=== PATIENT | female | born 1960 | race Caucasian/White ===

== ENCOUNTER 2021-05-11 07:58 | Outpatient (REF) | payer OTHER, SELFPAY ==
--- NOTE | ~2021-05-11 | MM_ITS ---
EXAMINATION: MM SCREENING DIGITAL BREAST TOMOSYNTHESIS, BILATERAL CLINICAL INFORMATION: Screening. Asymptomatic. The lifetime risk of breast cancer based on the Tyrer-Cuzick Model is 8.7%. COMPARISON: Mammography: 05/05/2020 and studies dating back to 06/21/2014 TECHNIQUE: Digital breast tomosynthesis is performed in both the craniocaudal and mediolateral oblique views along with computer-aided detection (CAD). Synthesized 2D images are generated from the tomosynthesis. Additional bilateral exaggerated craniocaudal views performed. FINDINGS: There are scattered areas of fibroglandular density (ACR BI-RADS breast composition Category b). There is a stable parenchymal appearance of the right breast without new abnormal dominant mass or suspicious grouping of microcalcifications. Within the anterior medial aspect of the left breast there is a circumscribed approximately 5 x 3 mm density for which ultrasound evaluation is recommended. Radiology staff will contact patient to obtain this study. MM/MM tomosynthesis screening BI IMPRESSION: Left breast density for further evaluation with ultrasound. ASSESSMENT: BI-RADS 0: Incomplete - Need Additional Imaging Evaluation RECOMMENDATION: 1. Additional views of the left breast. 2. Targeted ultrasound if warranted after review of the additional views. 3. Radiology department staff will contact the patient for additional imaging. This patient's information was entered into a reminder system with a target due date for their next mammogram.
== END 2021-05-11 07:59 | disposition home or self-care (01) ==
LOC: HO.MAMMO 07:58
PROVIDERS: PCP Internal Medicine Medical Oncology; Visit Provider Internal Medicine Medical Oncology
DX: Z12.31 Encounter for screening mammogram for malignant neoplasm of breast (principal)
CPT/HCPCS: 77063; 77067

== ENCOUNTER 2021-05-19 08:44 | Outpatient (REF) | payer OTHER, SELFPAY ==
--- NOTE | ~2021-05-19 | US_ITS ---
EXAMINATION: US DIAGNOSTIC ULTRASOUND BREAST, LEFT CLINICAL INFORMATION: Recall from screening for new small nodule anterior 9:00 left breast. TC score 9%. COMPARISON: Mammography 05/11/2021 and prior studies dating back to 07/03/2015. TECHNIQUE: Ultrasound left breast is targeted to the inner quadrant. Grayscale imaging and color Doppler are performed without and with harmonics. FINDINGS: There is a hypoechoic nodule 9:00 position 4 cm from nipple measuring approximately 5 x 4 x 4 mm. Margins are smooth. There is no posterior increased or decreased through transmission of sound. No internal color flow. The location and size. Results are discussed with the patient at time of visit. The ultrasound finding appears to correspond to the size and location of the mammographic lesion for recall. The mammographic finding is new from prior studies. Ultrasound-guided core sampling is recommended. Results and recommendation called to office ([facility]) for Dr. Hays on 05/19/2021. US/US breast LT limited IMPRESSION: Hypoechoic nodule 9:00 position measuring 5 x 4 mm believed to correspond to the mammographic finding for recall. ASSESSMENT: BI-RADS 4: Suspicious (subcategory 4A: Low suspicion for malignancy) RECOMMENDATION: Ultrasound-guided core sampling. This patient's information was entered into a reminder system with a target due date for their next mammogram.
== END 2021-05-19 08:45 | disposition home or self-care (01) ==
LOC: HO.MAMMO 08:44
PROVIDERS: Visit Provider Internal Medicine Medical Oncology
DX: R92.2 Inconclusive mammogram (principal)
CPT/HCPCS: 76642

== ENCOUNTER 2021-05-24 09:26 | Outpatient (REF) | payer OTHER, SELFPAY ==
--- NOTE | ~2021-05-24 | MM_ITS ---
EXAMINATION: ULTRASOUND GUIDED CORE BIOPSY BREAST, LEFT POST PROCEDURE DIGITAL MAMMOGRAM, LEFT CLINICAL INFORMATION: There is small nodule anterior medial left breast 9:00 position. COMPARISON: Mammography 05/11/2021, 05/05/2020, 03/26/2019, targeted left breast ultrasound 05/19/2021. FINDINGS: Proper informed consent is obtained from the patient after discussion of the procedure, potential risks and complications, and alternatives. Patient was given an opportunity for questions. The patient appeared to understand. The patient consented to the procedure and signed the consent form. GUIDANCE: Ultrasound-guided; aseptic technique. LESION: Hypoechoic nodule 9:00 position 0.5 cm. APPROACH: Medial lateral. ANESTHESIA: 10 mL 1% lidocaine. DERMATOTOMY: Single skin joan dermatotomy performed. NEEDLE: 14-gauge Achieve core biopsy device with 13.5-gauge co-axial guide needle. CORES: 6. CLIP: HydroMARK; shape: open coil. POST PROCEDURE UNILATERAL DIGITAL MAMMOGRAM: The post biopsy mammogram is performed in separate room using separate digital mammography equipment from the biopsy procedure. CC and ML views are obtained. There are scattered areas of fibroglandular density (breast composition category: b). The clip marker is in position and corresponds to the finding on recent mammography. No gross hematoma. The patient tolerated the procedure well. No immediate complications. Home instructions reviewed with the patient. Final pathology results are pending. MM/MM tomosynthesis diagnostic LT IMPRESSION: 1. Status post ultrasound-guided core biopsy left breast. 2. Clip placed: HydroMARK; shape: open coil. 3. Pathology pending. An addendum report will be issued.
== END 2021-05-24 09:27 | disposition home or self-care (01) ==
LOC: HO.MAMMO 09:26
PROVIDERS: Visit Provider Surgery
DX: N63.25 Unspecified lump in the left breast, overlapping quadrants (principal)
CPT/HCPCS: 19083; 77061; 77065; 88305; 88342; 88360

== ENCOUNTER → 2021-06-05 08:33 | Outpatient (BNVA) | payer OTHER, SELFPAY | PROVIDERS: PCP Internal Medicine Medical Oncology; Visit Provider Surgery ==

== ENCOUNTER 2021-06-23 09:03 | Day surgery (SDC) | payer OTHER, SELFPAY ==
[2021-06-19 10:46] VITALS: BMI 34.4
[2021-06-19 10:55] VITALS: BMI 34.4
--- NOTE | 2021-06-22 08:34 | HO.ANESPROP2 ---
Documented by User: Arlen Horn NP 06/22/21 08:36 HPI - Anesthesia Eval Consult details Narrative: 61yo F for Left Breast Biopsy Needle Localization, Breast Lumpectomy [facility] Active Problems Active Problems: All Active Problems (Updated 06/19/21 @ 10:56 by Mallory Rain RN) 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 (Acute) Left breast mass (Acute) Past Medical History Medical History (Updated 06/23/21 @ 11:31 by Laurie Gonzalez MD) 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 COVID-19 vaccine series completed Fractured shoulder HTN (hypertension) Left breast mass Rhabdomyolysis Surgical History Surgical History (Updated 06/19/21 @ 10:44 by Mallory Rain RN) History of ankle surgery Hx of biopsy Social History Social History Patient Tobacco Use Status: Never used Tobacco Use of substances other than those prescribed or required for medical reasons: No Are you DNR?: No Advance Directives: No Advance Directives Information Provided: Yes (as above noted) Advance Directives on File: No Recently lost weight without trying: No Eating poorly because of decreased appetite: No Nutrition Risks: No Nutritional Risk Poor oral hygiene: No Meds Allergies Allergy/AdvReac Type Severity Reaction Status Date / Time lisinopril [LISINOPRIL] Allergy Intermediate COUGH Verified 06/19/21 10:42 ibuprofen [IBUPROFEN] AdvReac Intermediate Confusion Verified 06/19/21 10:42 Home Medications Medication Instructions Recorded Confirmed Last Taken Type atenolol 25 mg tablet 25 mg PO DAILY 05/24/21 06/23/21 06/22/21 History Exam Exam Date and Time: June 22, 2021 0834 Height,Weight and Vital Signs: Height 5 ft 9 in Weight 105.687 kg Assessment and Plan Assessment Anesthesia Assessment: Chart Reviewed Documented by User: Laurie Gonzalez MD 06/23/21 12:27 [facility] Past Medical History Medical History (Updated 06/23/21 @ 11:31 by Laurie Gonzalez MD) 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 COVID-19 vaccine series completed Fractured shoulder HTN (hypertension) Left breast mass Rhabdomyolysis Family History Family history of problems with anesthesia: No Surgical History Surgical History (Updated 06/19/21 @ 10:44 by Mallory Rain RN) History of ankle surgery Hx of biopsy History of Problems with Anesthesia: No Social History Social History Patient Tobacco Use Status: Never used Tobacco Use of substances other than those prescribed or required for medical reasons: No Are you DNR?: No Advance Directives: No Advance Directives Information Provided: Yes (as above noted) Advance Directives on File: No Recently lost weight without trying: No Eating poorly because of decreased appetite: No Nutrition Risks: No Nutritional Risk Poor oral hygiene: No Meds Allergies Allergy/AdvReac Type Severity Reaction Status Date / Time lisinopril [LISINOPRIL] Allergy Intermediate COUGH Verified 06/19/21 10:42 ibuprofen [IBUPROFEN] AdvReac Intermediate Confusion Verified 06/19/21 10:42 Home Medications Medication Instructions Recorded Confirmed Last Taken Type atenolol 25 mg tablet 25 mg PO DAILY 05/24/21 06/23/21 06/22/21 History Exam Height,Weight and Vital Signs: Height 5 ft 9 in Weight 105.687 kg Vital Signs Temp Pulse Resp BP Pulse Ox 06/23/21 09:10 97 F 54 18 154/78 H 98 Airway Mallampati Class: II TM Dist: >3cm Neck ROM: Full Loose/Missing/Broken Teeth: No Heart: RRR Lungs: CTAB Assessment and Plan Assessment Anesthesia Assessment: Anesthesia Plan Discussed Final Anesthetic Review Family History of Problems with Anesthesia: No History of Problems with Anesthesia: No NPO: Yes ASA Class: II Final Preanesthetic Review: No Changes in Pt Med Stat, Meds/Allgs Chart Reviewed, Consent Obtained/Reviewed and Anes Risks/Benef Reviewed Patient Risk: Low Procedure Risk: Low Assessment/Block/Sedation in SS: Assess/Block/Sedation-SS Anesthetic Plan Anesthetic Plan: GA Disposition: Standard PACU
[2021-06-23] VITALS (8 sets, daily range): BP systolic 130–154; BP diastolic 68–79; PULSE 44–54; RESP 16–18; TEMP 36.1–36.5; O2SAT 96–98
--- NOTE | ~2021-06-23 | MM_ITS ---
EXAMINATION: MM MAMMOGRAM GUIDED NEEDLE LOCALIZATION BREAST, LEFT MM NEEDLE LOCALIZATION SPECIMEN FROM THE LEFT BREAST CLINICAL INFORMATION: Intraductal papilloma with florid usual ductal hyperplasia and atypical ductal hyperplasia. COMPARISON: Mammography 05/11/2021, 11/21/2020 TECHNIQUE NEEDLE LOC: Proper informed consent is obtained from the patient after discussion of the procedure, potential risks and complications, and alternatives including declining the procedure today. Patient was given an opportunity for questions. The patient appeared to understand. The patient consented to the procedure and signed the consent form. GUIDANCE: Digital mammography. APPROACH: Mediolateral. TARGET: Open coil biopsy clip marker overlying faint nodule. ANESTHESIA: Carbonated lidocaine 1%: 5 mL. LOCALIZATION MARKER: Zahl MammaLok. 5 cm length. The skin is prepped and local anesthesia administered. The needle is positioned and position assessed with mammography. The wire is hooked into position. Loleta needle protector placed. The patient tolerated the procedure well and had no immediate complication. Procedure results discussed with Dr. Gomez prior to surgery. TECHNIQUE SPECIMEN RADIOGRAPH: Imaging of the excised specimen is performed using digital mammography in 1 view. FINDINGS SPECIMEN RADIOGRAPH: The specimen shows the needle and hookwire are delivered intact. The biopsy clip marker and faint nodule are at the periphery of the specimen. Results were called to Dr. Bennie Gomez in the operating room at the time of imaging. MM/MM needle loc LT IMPRESSION: 1. Status post left breast needle localization with wire hooked into position. 2. Post operative specimen radiograph obtained.
[2021-06-23] MEDS: Lactated Ringers 1,000 ML 100 ML IVCONT (09:23)
--- NOTE | 2021-06-23 10:20 | PC.NURSE ---
pt to rad for needle loc at 1000
--- NOTE | 2021-06-23 10:39 | MHC.SHP ---
Pre-Procedural Eval Section A Date of Service: 06/23/21 Section B Chief Complaint: 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 Allergies: Allergies Allergy/AdvReac Type Severity Reaction Status Date / Time lisinopril [LISINOPRIL] Allergy Intermediate COUGH Verified 06/19/21 10:42 ibuprofen [IBUPROFEN] AdvReac Intermediate Confusion Verified 06/19/21 10:42 Plan I have reviewed the history and physical and performed a pertinent physical examination on my patient. No changes have occurred unless specified.
--- NOTE | 2021-06-23 12:04 | W.PM.OPN ---
Operative Note Operative Note Date of Service: 06/23/21 Narrative: Preop diagnosis: Intraductal papilloma, atypical lobular hyperplasia, left breast Postop diagnosis: The same Procedure: Lumpectomy, left breast with needle localization Surgeon: Bennie Gomez MD 1st sales assistant entertainment and media: TIN Kim The patient is a 61 year female who had recently undergone ultrasound biopsy of the left breast which turned out to be intraductal papilloma with atypical lobular hyperplasia. It was therefore recommended to her to undergo lumpectomy with needle localization She understood the technique of the procedure. She was aware of the risks, benefits, and alternatives. She was brought to the operating room and placed supine on table under general anesthesia via laryngeal mask airway. She had earlier undergone needle localization in the mammogram suite. The localizing needle was seen entering from medially towards the lateral aspect of the inner side of the left breast. I discussed the needle localization films with the radiologist. The left breast along with the localized needle was prepped and draped in the usual sterile fashion. A surgical time-out was done. The patient received cefazolin 2 g IV preoperatively I infiltrated the planned line of incision using lidocaine 1%. I made a transverse incision tangential to the localizing needle using blade 15. This was carried down through the full-thickness of the skin and subcutaneous fat with electrocautery. I carried down the incision into the breast tissue. I then used a curved Ruiz to dissect around this localizing needle through the surrounding breast tissue, being mindful to take significant margins of breast tissue surroundings needle. I also palpated periodically to make sure that we were past the curve of the needle. We continued to dissect using the curved Ruzi all the way past the needle and circumferentially around the breast tissue surrounding the localizing needle until were able to deliver this. I marked the lateral aspect and the superior aspect of the lumpectomy specimen for orientation using sutures. was sent for immediate re-ray. I cauterized oozing areas within the lumpectomy site. Once hemostasis stasis was ensured, I proceeded to then irrigate. I reapposed the subcutaneous layer and breast tissue with Dexon 3-0 interrupted sutures. Skin closure was achieved with Dexon 4-0 subcuticular running stitch Steri-Strips and dressings were applied. The procedure was completed The patient tolerated procedure well. No complication noted. Initial fine counts of sponges and instruments were correct with him it blood loss about 20 cc The patient was then extubated without difficulty and transferred to the recovery room with stable vital signs I received a call from the radiologist at the end the procedure stating the localizing clip and needle were all within the specimen.
--- NOTE | 2021-06-23 12:14 | PM.OP ---
Brief Operative Note Date of Service: 06/23/21 Pre-op diagnosis: Intraductal papilloma, atypical lobular hyperplasia Left breast Post-op diagnosis: same Procedure: Lumpectomy with needle localization, left breast Surgeon: Bennie Gomez MD Anesthesia: GLMA Was an Agricultural Extension Officer used for this Procedure?: No Estimated blood loss (mL): 20 Pathology: other (Lumpectomy left breast) Condition: stable Disposition: PACU
[2021-06-23] MEDS: Acetaminophen 325 MG TABLET 650 MG PO (13:13)
== END 2021-06-23 13:54 | disposition home or self-care (01) ==
PROVIDERS: PCP Internal Medicine Medical Oncology; Visit Provider Surgery
PROC: (CPT 19301; principal; 2021-06-23 11:30)
PROC: (CPT 19301; 2021-06-23 11:30)
DX: N60.92 Unspecified benign mammary dysplasia of left breast (principal); D24.2 Benign neoplasm of left breast
CPT/HCPCS: 19301; 19281; 88307; 88329; J0690; J1100; J2250; J2405; J3010

== ENCOUNTER → 2021-07-05 10:11 | Outpatient (BNVA) | payer OTHER, SELFPAY | PROVIDERS: PCP Internal Medicine Medical Oncology; Visit Provider Surgery ==

== ENCOUNTER 2021-07-06 13:18 | Outpatient (REF) | payer OTHER, SELFPAY | END 2021-07-06 13:19 | disposition home or self-care (01) | LOC: HO.LNP 13:18 | PROVIDERS: Visit Provider Internal Medicine Medical Oncology | DX: Z12.4 Encounter for screening for malignant neoplasm of cervix (principal) | CPT/HCPCS: 88142 ==

== ENCOUNTER 2022-05-15 07:58 | Outpatient (REF) | payer OTHER, SELFPAY ==
--- NOTE | ~2022-05-15 | MM_ITS ---
EXAMINATION: MM SCREENING DIGITAL BREAST TOMOSYNTHESIS, BILATERAL CLINICAL INFORMATION: Screening. Asymptomatic. Status post benign right breast biopsy. Status post excisional left breast biopsy for papilloma. The lifetime risk of breast cancer based on the Tyrer-Cuzick Model is 8.5%. COMPARISON: Mammography: 06/23/2021 and studies dating back to 01/26/2016. TECHNIQUE: Digital breast tomosynthesis is performed in both the craniocaudal and mediolateral oblique views along with computer-aided detection (CAD). Synthesized 2D images are generated from the tomosynthesis. Additional right exaggerated craniocaudal view performed. FINDINGS: There are scattered areas of fibroglandular density (ACR BI-RADS breast composition Category b). There are no new significant masses, abnormal calcifications, or other abnormalities. Dystrophic calcifications seen about the superior aspect of the right breast. Region of postoperative distortion seen within the anterior left breast. MM/MM tomosynthesis screening BI IMPRESSION: No significant changes from prior exam. ASSESSMENT: BI-RADS 2: Benign. RECOMMENDATION: Routine annual mammography screening. This patient's information was entered into a reminder system with a target due date for their next mammogram.
== END 2022-05-15 07:59 | disposition home or self-care (01) ==
LOC: HO.MAMMO 07:58
PROVIDERS: PCP Internal Medicine Medical Oncology; Visit Provider Internal Medicine Medical Oncology
DX: Z12.31 Encounter for screening mammogram for malignant neoplasm of breast (principal)
CPT/HCPCS: 77063; 77067

== ENCOUNTER 2022-07-23 08:32 | Outpatient (REF) | payer OTHER, SELFPAY ==
[2022-07-23 08:43] LABS: MANUAL DIFF FLAG NO
[2022-07-23 09:09] LABS: Basophils Percent Auto 0.5 % (0-2); Eosinophils Absolute Auto 0.1 X10*3/uL (0.0-0.4); Eosinophils Percent Auto 1.5 % (0-4); Hemoglobin 14.2 g/dl (12.0-16.0); Imm Gran Abs Auto 0.01 X10*3/uL (0.00-0.03); Imm Gran Pct Auto 0.2 % (0.0-0.4); Lymphocytes Absolute Auto 2.4 X10*3/uL (1.2-4.9); Lymphocytes Percent Auto 40.4 % (20-40); Mean Corpuscular Hemoglobin 29.1 pg (27.0-33.0); Mean Corpuscular Volume 88.1 fL (80.0-98.0); Mean Platelet Volume 9.7 fL (9.4-12.3); Monocytes Absolute Auto 0.4 X10*3/uL (0.1-1.2); Monocytes Percent Auto 6.2 % (2-11); Neutrophils Absolute Auto 3.1 x10*3/uL (2.0-8.3); Neutrophils Percent Auto 51.2 % (45-73); Platelet Count 170 X10*3/uL (160-400); Red Blood Count 4.88 X10*6/uL (4.20-5.50); Red Cell Distribution Width 12.5 % (11.0-16.0)
[2022-07-23 09:23] LABS: Alanine Aminotransferase 43 U/L (0-31); Albumin Level 4.6 g/dL (3.5-5.0); Alkaline Phosphatase 85 U/L (39-117); Anion Gap 19 (12-20); Aspartate Amino Transferase 49 U/L (5-31); Bilirubin Total 0.9 mg/dL (0.0-1.0); Blood Urea Nitrogen 11 mg/dL (9-16); Calcium 9.3 mg/dL (8.4-10.2); Carbon Dioxide 25 mmol/L (22-29); Chloride 99 mmol/L (96-108); Cholesterol 269 mg/dL; Estimated Glomerular Filt Rate > 60; Glucose Random 264 mg/dL (60-115); HDL Cholesterol 34 mg/dL; Potassium 4.7 mmol/L (3.3-5.1); Sodium 138 mmol/L (135-145); Total Protein 7.5 g/dL (6.5-8.0); Triglycerides 476 mg/dL
== END 2022-07-23 08:33 | disposition home or self-care (01) ==
LOC: HO.LAB 08:32
PROVIDERS: PCP Internal Medicine Medical Oncology; Visit Provider Internal Medicine Medical Oncology
DX: E66.9 Obesity, unspecified (principal); E78.2 Mixed hyperlipidemia
CPT/HCPCS: 36415; 80053; 80061; 85025

== ENCOUNTER 2022-07-25 10:30 | Outpatient (REF) | payer OTHER, SELFPAY ==
[2022-07-25 11:46] LABS: Estimated Average Glucose 269 mg/dL
[2022-07-25 12:05] LABS: TSH reflex Free T4 1.43 uIU/mL (0.32-4.0)
[2022-07-25 12:06] LABS: C Reactive Protein 0.67 mg/dL (< or = 0.50)
[2022-07-25 12:46] LABS: Folate 17.4 ng/mL (> or = 4.0); Vitamin B12 274 pg/mL (200-900)
[2022-07-31 16:02] LABS: Vitamin D 25-OH, D2 <4 ng/mL; Vitamin D 25-OH, D3 35 ng/mL; Vitamin D 25-OH, Total 35 ng/mL (30-100)
== END 2022-07-25 10:31 | disposition home or self-care (01) ==
LOC: HO.LAB 10:30
PROVIDERS: PCP Internal Medicine Medical Oncology; Visit Provider Nurse Practitioner Family
DX: R19.7 Diarrhea, unspecified (principal); K59.00 Constipation, unspecified; E11.9 Type 2 diabetes mellitus without complications; K58.9 Irritable bowel syndrome, unspecified; E55.9 Vitamin D deficiency, unspecified
CPT/HCPCS: 36415; 82306; 82607; 82746; 83036; 84443; 86140

== ENCOUNTER 2022-07-26 08:49 | Outpatient (REF) | payer OTHER, SELFPAY ==
[2022-07-26 09:58] LABS: CDiff Gene PCR NEGATIVE (Negative)
[2022-07-26 11:38] LABS: Adenovirus F 40/41 Not Detected (Not Detect.); Campylobacter Not Detected (Not Detect.); Cryptosporidium Not Detected (Not Detect.); Cyclospora cayetanensis Not Detected (Not Detect.); E. coli EAEC Not Detected (Not Detect.); E. coli EPEC Not Detected (Not Detect.); E. coli ETEC Not Detected (Not Detect.); E. coli STEC Not Detected (Not Detect.); Entamoeba histolytica Not Detected (Not Detect.); Giardia lamblia Not Detected (Not Detect.); Plesiomonas shigelloides Not Detected (Not Detect.); Salmonella Not Detected (Not Detect.); Shigella sp./EIEC Not Detected (Not Detect.); Vibrio Not Detected (Not Detect.); Vibrio Cholerae Not Detected (Not Detect.); Yersinia enterocolitica Not Detected (Not Detect.)
[2022-07-26 11:39] LABS: Astrovirus Not Detected (Not Detect.); Norovirus GI/GII Not Detected (Not Detect.); Rotavirus A Not Detected (Not Detect.); Sapovirus Not Detected (Not Detect.)
== END 2022-07-26 08:50 | disposition home or self-care (01) ==
LOC: HO.LNP 08:49
PROVIDERS: Visit Provider Nurse Practitioner Family
DX: R19.7 Diarrhea, unspecified (principal)
CPT/HCPCS: 87493; 87507

== ENCOUNTER 2022-08-08 09:34 | Day surgery (SDC) | payer OTHER, SELFPAY ==
[2022-08-01 13:18] VITALS: BMI 32.9
--- NOTE | 2022-08-07 08:59 | P.CONAN_ITS ---
Documented by User: Arlen Horn NP 08/07/22 09:00 HPI - Anesthesia Eval Consult details Narrative: 62yo F for Colonoscopy PMFSH Active Problems Active Problems: All Active Problems (Updated 08/01/22 @ 13:22 by Mallory Rain RN) 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 (Acute) Left breast mass (Acute) Past Medical History Medical History (Updated 08/08/22 @ 09:49 by Jenni Shah RN) 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 COVID-19 vaccine series completed Diabetes Fractured shoulder HTN (hypertension) Left breast mass Murmur Rhabdomyolysis Family History Family history of problems with anesthesia: No Surgical History Surgical History History of ankle surgery History of lumpectomy of left breast Hx of biopsy History of Problems with Anesthesia: No Social History Social History Are you a primary customer care coordinator to a significant other at home: No Do you presently have visiting nurse or other home services: No Patient Tobacco Use Status: Never used Tobacco Meds Allergies Allergy/AdvReac Type Severity Reaction Status Date / Time lisinopril [LISINOPRIL] Allergy Intermediate COUGH Verified 08/08/22 09:47 ibuprofen [IBUPROFEN] AdvReac Intermediate Confusion Verified 08/08/22 09:47 Home Medications Medication Instructions Recorded Confirmed Last Taken Type atenolol 25 mg tablet 25 mg PO DAILY 05/24/21 08/01/22 08/08/22 07:00 History metformin 500 mg tablet 500 mg PO QAM 08/01/22 08/01/22 Unknown History Exam Exam Date and Time: August 07, 2022 0859 Height,Weight and Vital Signs: Height 5 ft 9 in Weight 101.264 kg Pertinent Lab Results Pertinent Lab Results: Laboratory Tests 07/23/22 07/23/22 08:42 08:42 WBC 6.0 Hgb 14.2 Hct 43.0 Plt Count 170 Sodium 138 Potassium 4.7 Chloride 99 Carbon Dioxide 25 BUN 11 Creatinine 0.77 Assessment and Plan Assessment Anesthesia Assessment: Chart Reviewed Final Anesthetic Review Family History of Problems with Anesthesia: No History of Problems with Anesthesia: No Documented by User: Jhon Sanon MD 08/08/22 16:20 [facility] Past Medical History Medical History (Updated 08/08/22 @ 09:49 by Jenni Shah, RN) 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 COVID-19 vaccine series completed Diabetes Fractured shoulder HTN (hypertension) Left breast mass Murmur Rhabdomyolysis Functional capacity: independent ambulation Surgical History Surgical History History of ankle surgery History of lumpectomy of left breast Hx of biopsy Social History Social History Are you a primary customer care coordinator to a significant other at home: No Do you presently have visiting nurse or other home services: No Patient Tobacco Use Status: Never used Tobacco Meds Allergies Allergy/AdvReac Type Severity Reaction Status Date / Time lisinopril [LISINOPRIL] Allergy Intermediate COUGH Verified 08/08/22 09:47 ibuprofen [IBUPROFEN] AdvReac Intermediate Confusion Verified 08/08/22 09:47 Home Medications Medication Instructions Recorded Confirmed Last Taken Type atenolol 25 mg tablet 25 mg PO DAILY 05/24/21 08/01/22 08/08/22 07:00 History metformin 500 mg tablet 500 mg PO QAM 08/01/22 08/01/22 Unknown History Exam Airway Mallampati Class: III TM Dist: >3cm Neck ROM: Full Loose/Missing/Broken Teeth: Yes (Caps ) Heart: S1,S2 Lungs: b/l breath sounds Assessment and Plan Assessment Anesthesia Assessment: Anesthesia Plan Discussed Final Anesthetic Review NPO: Yes ASA Class: II Final Preanesthetic Review: Meds/Allgs Chart Reviewed, Consent Obtained/Reviewed and Anes Risks/Benef Reviewed Patient Risk: Intermediate Procedure Risk: Intermediate Anesthetic Plan Anesthetic Plan: MAC: Disposition: Standard PACU
--- NOTE | 2022-08-08 10:01 | P.HPSUR_ITS ---
Pre-Procedural Eval Section A Date of Service: 08/08/22 Section B Chief Complaint: screening Relevant Family History (Specify if Yes): No Relevant Social History: None Present Medications: see Short Stay Collaborative assessment Medical History: Significant History (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 COVID-19 vaccine series completed Diabetes Fractured shoulder HTN (hypertension) Left breast mass Murmur Rhabdomyolysis) History of Previous Operations: Relevant previous surgery/procedure and date(s) (History of ankle surgery History of lumpectomy of left breast Hx of biopsy) Allergies: Allergies Allergy/AdvReac Type Severity Reaction Status Date / Time lisinopril [LISINOPRIL] Allergy Intermediate COUGH Verified 08/08/22 09:47 ibuprofen [IBUPROFEN] AdvReac Intermediate Confusion Verified 08/08/22 09:47 Review of Systems Sugical H&P ROS: Negative: Constitution, Cardiovascular, Respiratory, Neurological, Psychiatric, Hem-Onc, Allergic/Immunologic, Gastrointestinal, Genitourinary, Musculoskeletal, Integumentary, Endocrine and Eyes/Ear s/Nose/Throat Exam Surgical H&P Exam: Normal: HEENT, Normal: Heart, Normal: Lungs, Normal: Extremities, Normal: Abdomen, Normal: Skin and Normal: Neurological Plan Diagnosis/Plan: Unchanged I have reviewed the history and physical and performed a pertinent physical examination on my patient. No changes have occurred unless specified.
[2022-08-08 10:05] VITALS: BP 140/77; PULSE 52; RESP 15; TEMP 36.6; O2SAT 97
[2022-08-08] MEDS: Lactated Ringers 1,000 ML 100 ML IVCONT (10:10)
[2022-08-08 10:12] LABS: Glucose, Whole Blood 213 mg/dL (60-115)
--- NOTE | 2022-08-08 10:42 | W.PM.OPN ---
Operative Note Operative Note Date of Service: 08/08/22 Narrative: Operative Information Procedure Description: Colonoscopy Indication: screening Anesthesia: MAC COLONOSCOPY Instrument: Olympus variable stiffness pediatric scope 190L Colonoscopy Monitoring: Vital signs and clinical assessment, continuous EKG monitoring, Pulse oximetry, Carbon Dioxide monitoring and blood pressure monitoring were done throughout the procedure. Colon withdrawal time was 13 minutes. Procedure: The patient was placed in the left lateral decubitis position and pre-procedure medications were administered. After a digital rectal examination of the ano-rectum, the video colonoscope was inserted into the rectum and advanced through the colon to the cecum/TI. The colonoscope was slowly withdrawn in a retrograde panoramic fashion and the colon mucosa was carefully examined including a retroflexed view of the rectum. Findings and interventions are described below. Procedure Difficulty: easy Findings: Terminal Ileum-normal Cecum:normal Ascending Colon: x 2 sessile polyps 10-12 mm removed with cold snare -one area with clip applied for hemostasis, few diverticula seen Transverse Colon -normal Descending Colon:normal Sigmoid Colon: normal Rectum: Retroflexion with small internal hemorrhoids, grade I, x 1 sessile polyp 3-4 mm removed with cold forceps Anorectum - normal Colon preparation: [place] Bowel Preparation Scale Right colon; 2 Transverse colon: 3 Left colon; 3 (0 = Unprepared colon segment with mucosa not seen due to solid stool that cannot be cleared. 1 = Portion of mucosa of the colon segment seen, but other areas of the colon segment not well seen due to staining, residual stool and/or opaque liquid. 2 = Minor amount of residual staining, small fragments of stool and/or opaque liquid, but mucosa of colon segment seen well. 3 = Entire mucosa of colon segment seen well with no residual staining, small fragments of stool or opaque liquid) Impression and Post Procedure Diagnosis: polyps internal hemorrhoids diverticular disease Plan: High fiber diet leaflet Avoid straining at stool, epsom salts and sitz bath, anusol supps or cream Repeat Colonoscopy in 5 years due to adenomatous appearing polyps or earlier if clinically indicated Above findings were reviewed with the patient and relevant handouts were provided if indicated.
[2022-08-08 10:44] VITALS: BP 94/46; PULSE 53; RESP 16; TEMP 36.1; O2SAT 97
[2022-08-08 10:59] VITALS: BP 126/69; PULSE 47; RESP 16; TEMP 36.2; O2SAT 97
[2022-08-08 11:14] VITALS: BP 141/75; PULSE 48; RESP 16; TEMP 36.5; O2SAT 98
== END 2022-08-08 11:47 | disposition home or self-care (01) ==
PROVIDERS: PCP Internal Medicine Medical Oncology; Visit Provider Internal Medicine Gastroenterology
PROC: 0DJD8ZZ Inspection of Lower Intestinal Tract, Via Natural or Artificial Opening Endoscopic (ICD-10-PCS; CPT 45378; principal; 2022-08-08 12:50)
DX: Z12.11 Encounter for screening for malignant neoplasm of colon (principal); D12.2 Benign neoplasm of ascending colon; K62.1 Rectal polyp; K57.30 Diverticulosis of large intestine without perforation or abscess without bleeding; K64.0 First degree hemorrhoids; N60.92 Unspecified benign mammary dysplasia of left breast; I10 Essential (primary) hypertension; E11.9 Type 2 diabetes mellitus without complications; R01.1 Cardiac murmur, unspecified; M62.82 Rhabdomyolysis; Z79.84 Long term (current) use of oral hypoglycemic drugs; Z79.899 Other long term (current) drug therapy; Z88.8 Allergy status to other drugs, medicaments and biological substances
CPT/HCPCS: 45385; 45380; 82947; 88305

== ENCOUNTER 2022-08-22 08:49 | Outpatient (REF) | payer OTHER, SELFPAY ==
[2022-08-22 09:06] LABS: MANUAL DIFF FLAG NO
[2022-08-22 10:02] LABS: Basophils Percent Auto 0.5 % (0-2); Eosinophils Absolute Auto 0.1 X10*3/uL (0.0-0.4); Eosinophils Percent Auto 0.8 % (0-4); Hemoglobin 13.5 g/dl (12.0-16.0); Imm Gran Abs Auto 0.02 X10*3/uL (0.00-0.03); Imm Gran Pct Auto 0.3 % (0.0-0.4); Lymphocytes Percent Auto 38.8 % (20-40); Mean Corpuscular HGB Conc 32.9 g/dl (31.0-35.0); Mean Corpuscular Hemoglobin 29.3 pg (27.0-33.0); Mean Corpuscular Volume 88.9 fL (80.0-98.0); Mean Platelet Volume 10.1 fL (9.4-12.3); Monocytes Absolute Auto 0.5 X10*3/uL (0.1-1.2); Monocytes Percent Auto 6.7 % (2-11); Neutrophils Percent Auto 52.9 % (45-73); Platelet Count 165 X10*3/uL (160-400); Red Blood Count 4.61 X10*6/uL (4.20-5.50); Red Cell Distribution Width 12.5 % (11.0-16.0); White Blood Count 7.6 X10*3/uL (4.8-10.8)
[2022-08-22 10:31] LABS: Alanine Aminotransferase 38 U/L (0-31); Albumin Level 4.6 g/dL (3.5-5.0); Alkaline Phosphatase 77 U/L (39-117); Anion Gap 14 (12-20); Aspartate Amino Transferase 35 U/L (5-31); Bilirubin Total 0.8 mg/dL (0.0-1.0); Blood Urea Nitrogen 14 mg/dL (9-16); Calcium 9.3 mg/dL (8.4-10.2); Carbon Dioxide 27 mmol/L (22-29); Chloride 104 mmol/L (96-108); Cholesterol 188 mg/dL; Estimated Glomerular Filt Rate > 60; Gamma Glutamyl Transpeptidase 52 U/L (7-33); Glucose Fasting 238 mg/dL (60-99); HDL Cholesterol 32 mg/dL; LDL Cholesterol Calculated 99 mg/dl; Potassium 5.1 mmol/L (3.3-5.1); Sodium 140 mmol/L (135-145); Total Protein 7.1 g/dL (6.5-8.0); Triglycerides 289 mg/dL
== END 2022-08-22 08:50 | disposition home or self-care (01) ==
LOC: HO.LAB 08:49
PROVIDERS: PCP Internal Medicine Medical Oncology; Visit Provider Internal Medicine Medical Oncology
DX: E66.9 Obesity, unspecified (principal); I10 Essential (primary) hypertension; E78.2 Mixed hyperlipidemia; E11.65 Type 2 diabetes mellitus with hyperglycemia
CPT/HCPCS: 36415; 80053; 80061; 82977; 85025

== ENCOUNTER 2022-11-29 09:53 | Outpatient (REF) | payer OTHER, SELFPAY ==
[2022-11-29 10:26] LABS: MANUAL DIFF FLAG NO
[2022-11-29 10:49] LABS: Basophils Percent Auto 0.4 % (0-2); Eosinophils Absolute Auto 0.1 X10*3/uL (0.0-0.4); Eosinophils Percent Auto 1.2 % (0-4); Hematocrit 39.6 % (37.0-47.0); Hemoglobin 13.1 g/dl (12.0-16.0); Imm Gran Abs Auto 0.03 X10*3/uL (0.00-0.03); Imm Gran Pct Auto 0.4 % (0.0-0.4); Lymphocytes Absolute Auto 2.9 X10*3/uL (1.2-4.9); Lymphocytes Percent Auto 37.3 % (20-40); Mean Corpuscular HGB Conc 33.1 g/dl (31.0-35.0); Mean Corpuscular Hemoglobin 29.2 pg (27.0-33.0); Mean Corpuscular Volume 88.2 fL (80.0-98.0); Mean Platelet Volume 9.4 fL (9.4-12.3); Monocytes Absolute Auto 0.5 X10*3/uL (0.1-1.2); Monocytes Percent Auto 6.1 % (2-11); Neutrophils Absolute Auto 4.2 x10*3/uL (2.0-8.3); Neutrophils Percent Auto 54.6 % (45-73); Platelet Count 178 X10*3/uL (160-400); Red Blood Count 4.49 X10*6/uL (4.20-5.50); Red Cell Distribution Width 12.7 % (11.0-16.0); White Blood Count 7.7 X10*3/uL (4.8-10.8)
[2022-11-29 11:09] LABS: Estimated Average Glucose 186 mg/dL; Hemoglobin A1c % 8.1 %
[2022-11-29 11:18] LABS: Alanine Aminotransferase 24 U/L (0-31); Albumin Level 4.6 g/dL (3.5-5.0); Alkaline Phosphatase 71 U/L (39-117); Anion Gap 15 (12-20); Aspartate Amino Transferase 23 U/L (5-31); Bilirubin Total 0.9 mg/dL (0.0-1.0); Blood Urea Nitrogen 21 mg/dL (9-16); Calcium 9.5 mg/dL (8.4-10.2); Carbon Dioxide 26 mmol/L (22-29); Chloride 105 mmol/L (96-108); Cholesterol 193 mg/dL; Estimated Glomerular Filt Rate > 60; Glucose Fasting 191 mg/dL (60-99); HDL Cholesterol 36 mg/dL; LDL Cholesterol Calculated 92 mg/dl; Potassium 5.3 mmol/L (3.3-5.1); Sodium 141 mmol/L (135-145); Total Protein 7.2 g/dL (6.5-8.0); Triglycerides 325 mg/dL
[2022-11-29 13:37] LABS: Creatinine Urine 226.45 mg/dL; Microalbum/Creatinine Ratio Ur 18.5 ug/mg cr
== END 2022-11-29 09:54 | disposition home or self-care (01) ==
LOC: HO.LAB 09:53
PROVIDERS: PCP Internal Medicine Medical Oncology; Visit Provider Internal Medicine Medical Oncology
DX: I10 Essential (primary) hypertension (principal); E66.9 Obesity, unspecified; E11.65 Type 2 diabetes mellitus with hyperglycemia
CPT/HCPCS: 36415; 80053; 80061; 82043; 83036; 85025

== ENCOUNTER 2023-05-21 08:00 | Outpatient (REF) | payer OTHER, SELFPAY ==
--- NOTE | ~2023-05-21 | MM_ITS ---
EXAMINATION: MM SCREENING DIGITAL BREAST TOMOSYNTHESIS, BILATERAL CLINICAL INFORMATION: Screening. Asymptomatic. Recent needle biopsy 04/23/2021 yielding intraductal papilloma with florid usual ductal hyperplasia and atypical ductal hyperplasia. COMPARISON: Mammography: 05/15/2022, 04/23/2021, 05/11/2021, 05/05/2020, 03/26/2019, and dating back to 2016. TECHNIQUE: Digital breast tomosynthesis is performed in both the craniocaudal and mediolateral oblique views along with computer-aided detection (CAD). Synthesized 2D images are generated from the tomosynthesis. FINDINGS: There are scattered areas of fibroglandular density (ACR BI-RADS breast composition Category b). There is a post benign biopsy clip in the slightly outer inferior right breast, middle one third. There are dystrophic calcifications in both breasts left greater than right. There is an area of fat necrosis in the inferomedial left breast, likely relating to recent lumpectomy. There is skin scarring in this region as well. No suspicious developing masses, suspicious grouped calcifications, or regions of architectural distortion. MM/MM tomosynthesis screening BI IMPRESSION: No mammographic evidence of malignancy. Benign findings, stable. ASSESSMENT: BI-RADS BI-RADS 2 - Benign Findings RECOMMENDATION: Routine annual mammography screening. 1 year F/U This examination should not preclude the clinical evaluation of a suspicious palpable abnormality. This patient's information was entered into a reminder system with a target due date for their next mammogram.
== END 2023-05-21 08:01 | disposition home or self-care (01) ==
LOC: HO.MAMMO 08:00
PROVIDERS: PCP Internal Medicine Medical Oncology; Visit Provider Internal Medicine Medical Oncology
DX: Z12.31 Encounter for screening mammogram for malignant neoplasm of breast (principal)
CPT/HCPCS: 77063; 77067

== ENCOUNTER → 2023-05-21 08:00 | Outpatient (BNV) | payer OTHER, SELFPAY | PROVIDERS: PCP Internal Medicine Medical Oncology; Visit Provider Radiology Diagnostic Radiology | DX: Z12.31 Encounter for screening mammogram for malignant neoplasm of breast (principal) | CPT/HCPCS: 77063; 77067 ==

== ENCOUNTER 2023-08-05 10:10 | Outpatient (REF) | payer OTHER, SELFPAY ==
[2023-08-05 10:36] LABS: MANUAL DIFF FLAG NO
[2023-08-05 10:59] LABS: Basophils Percent Auto 0.6 % (0-2); Eosinophils Absolute Auto 0.1 X10*3/uL (0.0-0.4); Eosinophils Percent Auto 1.3 % (0-4); Hematocrit 38.5 % (37.0-47.0); Hemoglobin 12.8 g/dl (12.0-16.0); Imm Gran Abs Auto 0.02 X10*3/uL (0.00-0.03); Imm Gran Pct Auto 0.3 % (0.0-0.4); Lymphocytes Absolute Auto 2.5 X10*3/uL (1.2-4.9); Mean Corpuscular HGB Conc 33.2 g/dl (31.0-35.0); Mean Corpuscular Hemoglobin 29.2 pg (27.0-33.0); Mean Corpuscular Volume 87.9 fL (80.0-98.0); Mean Platelet Volume 9.6 fL (9.4-12.3); Monocytes Absolute Auto 0.5 X10*3/uL (0.1-1.2); Monocytes Percent Auto 6.5 % (2-11); Neutrophils Absolute Auto 3.9 x10*3/uL (2.0-8.3); Neutrophils Percent Auto 55.3 % (45-73); Platelet Count 184 X10*3/uL (160-400); Red Blood Count 4.38 X10*6/uL (4.20-5.50); Red Cell Distribution Width 12.6 % (11.0-16.0)
[2023-08-05 11:05] LABS: Estimated Average Glucose 186 mg/dL; Hemoglobin A1c % 8.1 % (<6.0)
[2023-08-05 11:36] LABS: Alanine Aminotransferase 23 U/L (0-31); Albumin Level 4.5 g/dL (3.5-5.0); Alkaline Phosphatase 73 U/L (39-117); Anion Gap 13 (12-20); Aspartate Amino Transferase 36 U/L (5-31); Bilirubin Total 0.6 mg/dL (0.0-1.0); Blood Urea Nitrogen 13 mg/dL (9-16); Calcium 9.4 mg/dL (8.4-10.2); Carbon Dioxide 25 mmol/L (22-29); Chloride 106 mmol/L (96-108); Cholesterol 180 mg/dL (<200); Estimated Glomerular Filt Rate > 60; Glucose Fasting 201 mg/dL (60-99); HDL Cholesterol 38 mg/dL (>40); LDL Cholesterol Calculated 82 mg/dL (<100); Potassium 4.5 mmol/L (3.3-5.1); Sodium 139 mmol/L (135-145); Total Protein 7.5 g/dL (6.5-8.0); Triglycerides 300 mg/dL (<150)
[2023-08-05 11:58] LABS: Appearance Urine Cloudy; Color Urine Dark Yellow; Glucose Urine UA Negative (Negative); Leukocyte Esterase Urine Moderate (2+) (Negative); Nitrite Urine Positive (Negative); Specific Gravity - Urine >= 1.030 (1.005-1.025); UMIC TRIGGER UA YES; Urine Blood Moderate (2+) (Negative); Urine Ketones Trace mg/dL (Negative); Urine Protein 30 (1+) mg/dL (Neg-Trace)
[2023-08-05 12:12] LABS: Bacteria Urine 4+ (None Seen); WBC Clumps Urine Present; WBC Urine >50 /HPF (0-5)
[2023-08-05 13:00] LABS: Creatinine Urine 279.03 mg/dL; Microalbum/Creatinine Ratio Ur 63.4 ug/mg cr (<30)
== END 2023-08-05 10:11 | disposition home or self-care (01) ==
LOC: HO.LAB 10:10
PROVIDERS: PCP Internal Medicine Medical Oncology; Visit Provider Internal Medicine Medical Oncology
DX: I10 Essential (primary) hypertension (principal); E66.9 Obesity, unspecified; E78.2 Mixed hyperlipidemia; E11.65 Type 2 diabetes mellitus with hyperglycemia
CPT/HCPCS: 36415; 80053; 80061; 81001; 82043; 82570; 83036; 85025; 87086; 87088; 87186

== ENCOUNTER 2023-10-09 13:38 | Outpatient (AMB) | payer OTHER, SELFPAY ==
[2023-10-09 13:43] VITALS: BP 140/82; BMI 33.8
--- NOTE | 2023-10-09 13:43 | MHC.OFFVIS ---
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 Ref Intake Note: Patient would like IUD removed Agricultural Equipment Sales Manager Required: No Information Interpreted: non-clinical & clinical Asphalt Distributor Operator: Asphalt Distributor Operator Present (Erick) Allergies lisinopril [LISINOPRIL] Allergy (Intermediate, Verified 10/09/23 13:46) COUGH ibuprofen [IBUPROFEN] Adverse Reaction (Intermediate, Verified 10/09/23 13:46) Confusion Medication List - Last Reconciled 10/09/23 by Mariana Head CNM atenolol 25 mg PO DAILY atorvastatin 10 mg PO DAILY blood sugar diagnostic (FreeStyle Lite Strips) As directed lancets (FreeStyle Lancets) As directed levonorgestrel (Mirena) intrauterine metformin 1,000 mg PO BID pioglitazone 15 mg PO DAILY Is last menstrual period known: No Post menopausal: Yes PFSH Medical History (Updated 10/09/23 @ 14:44 by Mariana Head CNM) Tubular adenoma Murmur Diabetes Fractured shoulder Rhabdomyolysis COVID-19 vaccine series completed HTN (hypertension) 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 Left breast mass Surgical History (Updated 10/09/23 @ 13:49 by SYLVIE Metzger) Hx of removal of cyst Hx of colonoscopy History of lumpectomy of left breast Hx of biopsy History of ankle surgery Family History (Updated 10/09/23 @ 13:50 by SYLVIE Metzger) Maternal Grandmother Breast cancer Father Bladder cancer Social History Are you a primary medical care evaluation specialist to a significant other at home: No Do you presently have visiting nurse or other home services: No Patient Tobacco Use Status: Never used Tobacco Female Reproductive History Menstrual Age of Menarche: 13 control method: none Total pregnancies: 3 Full term: 3 Number of Living Children: 3 Date of last pap smear: 07/07/21 (negative) Date of Mammogram: 05/21/23 Physical Exam Vital Signs: Last Vital Signs BP 140/82 H 10/09/23 13:43 BMI result Body Mass Index 33.8 Const General: healthy appearing, comfortable, no acute distress, well developed and alert Nutritional Appearance: average body habitus Orientation/consciousness: patient oriented x3 Limitations: no limitations HEENT Head: Yes normocephalic Neck Neck: Yes normal visual inspection Chest Chest palpation & inspection: normal inspection of the chest Breast/axilla inspection: normal inspection of the breasts and normal inspection of the axillae Breast/axilla palpation: normal palpation of the breasts and normal palpation of the axillae Resp Effort & Inspection: normal respiratory effort GI Inspection: Yes normal to inspection, No Abdominal wall edema and No distended Palpation (GI): Soft to palpation and nontender Other: Normal external exam vagina pink and moist cervix multiparous pink moist with Mirena strings visible. Pap smear was done as well as testing for gonorrhea chlamydia trichomoniasis Gardnerella and Carmela. Cervix mobile nontender uterus anteverted mobile nontender good tone with Kegel. After much discussion IUD was removed at patient's request she is postmenopausal and really wants it out and experiences a very high co-pay per visit. General: Yes bladder normal to palpation External Female Exam: normal external appearance and normal appearance of the urethra Speculum Exam - Vagina: normal appearance of the vagina, normal palpation and normal vaginal discharge Speculum Exam - Cervix: normal appearance of the cervix, normal palpation and nontender Bimanual exam- vagina & uterus: normal bimanual exam, normal palpation, uterine size normal, bladder normal to palpation, consistency normal, normal palpation, uterine mobility normal, uterine shape normal, No Cervical tenderness present, non-tender and no cervical motion tenderness Bimanual Exam- Adnexa, other: normal adnexae, no masses, normal and No adnexal tenderness Neuro General: patient oriented x3 Office Procedures IUD Insert/Removal Details Details: ---Patient is here for her IUD removal. Bimanual exam was done. Her uterus is firm, nontender, and appropriate sized, and is . The cervix was swabbed with Betadine. The IUD strings were grasped with ring forceps, and as patient coughed the IUD was removed easily with 1 tug. I reviewed any appropriate backup method. Discussed baron menopausal symptoms patient feels she is not at risk at this point for an unintended . FSH ordered for clarification as well. Patient can get it done sometime in the next few weeks. [id number] Removal Procedure code (CPT) selection complete Assessment & Plan Assessment & Plan (1) Perimenopause: Code(s): N95.1 - Menopausal and female climacteric states (2) Well woman exam with routine gynecological exam: Code(s): Z01.419 - Encounter for gynecological examination (general) (routine) without abnormal findings (3) Cervical cancer screening: Code(s): Z12.4 - Encounter for screening for malignant neoplasm of cervix (4) Encounter for screening examination for sexually transmitted disease: Code(s): Z11.3 - Encounter for screening for infections with a predominantly sexual mode of transmission (5) Presence of 52 mg levonorgestrel-releasing intrauterine device (IUD): Code(s): Z97.5 - Presence of (intrauterine) contraceptive device (6) Encounter for IUD removal: Code(s): Z30.432 - Encounter for removal of intrauterine contraceptive device Plan -----Discussed in this visit the following: healthy balanced diet, regular and consistent exercise, getting recommended health screens, doing the best she can for her particular health concerns, kegel exercises, pap smear screening and followup recommendations, mammography screening and SBE, normal changes in cycles in her life stage--- . She is getting follow-up for her breast issues and appropriate mammograms as scheduled these ordered via her PCC She is working on weight loss and trying to eat better to manage her diabetes she is on metformin and trying to be very good about her diet and trying a keto diet. She does not feel she is at risk for an unintended at this stage in her life and relationship as of double check I am ordering a FSH which I recommend she do before there was any possibility of an unanticipated risky sexual encounter -discussed baron menopausal issues in some detail. -the IUD was removed after some discussion of her desire to have it removed and the considerable co-pay that she must pay for individual visits. In addition I did the Pap smear and testing for STIs if this Pap smear is normal she may not need another Pap smear again as she will be 65 in 2 years. She did not feel she was at risk for STIs but testing was done during the exam. She declined blood work Discussed that we recommend rn obgyn annual exams however if all of her other healthcare needs are being met by her primary care provider and she has no specific rn obgyn concerns and she is getting her mammograms done, Then she needs to make her own decisions about where she spends her healthcare dollars and energy and appointments, and make decisions based on priorities. Orders: Orders Follicle Stimulating Hormone Today N95.1 - Menopausal and female climacteric states, Z01.419 - Encounter for gynecological examination (general) (routine) without abnormal findings, Z11.3 - Encounter for screening for infections with a predominantly sexual mode of transmission, Z12.4 - Encounter for screening for malignant neoplasm of cervix, Z30.432 - Encounter for removal of intrauterine contraceptive device, Z97.5 - Presence of (intrauterine) contraceptive device AMB IUD Insertion/Removal - Patient Supply Today N95.1 - Menopausal and female climacteric states, Z30.432 - Encounter for removal of intrauterine contraceptive device, Z97.5 - Presence of (intrauterine) contraceptive device Coding Level of Care Code New Pt Prev Care 40-64y(09761) Diagnoses Perimenopause N95.1 Well woman exam with routine gynecological exam Z01.419 Cervical cancer screening Z12.4 Encounter for screening examination for sexually transmitted disease Z11.3 Presence of 52 mg levonorgestrel-releasing intrauterine device (IUD) Z97.5 Encounter for IUD removal Z30.432 CPT Codes Details - CPT: 09774-[id number] Removal ([id number])
== END 2023-10-09 15:28 | disposition home or self-care (01) ==
LOC: HO.HWSM 13:38
PROVIDERS: PCP Internal Medicine Medical Oncology; Visit Provider Advanced Practice Midwife
DX: Z01.419 Encounter for gynecological examination (general) (routine) without abnormal findings (principal); N95.1 Menopausal and female climacteric states; Z97.5 Presence of (intrauterine) contraceptive device; Z30.432 Encounter for removal of intrauterine contraceptive device
CPT/HCPCS: 58301; 99386

== ENCOUNTER 2023-10-09 13:38 | Outpatient (REF) | payer OTHER, SELFPAY ==
[2023-10-10 03:30] LABS: CT PCR NOT DETECTED (Not Detect.); NG PCR NOT DETECTED (Not Detect.)
[2023-10-10 13:44] LABS: BV Int Neg Control Negative (Negative); BV Int Pos Control Positive (Positive)
[2023-10-12 06:33] LABS: HPV mRNA E6/E7 rflx Not Detected (Not Detected)
== END 2023-10-09 13:39 | disposition home or self-care (01) ==
LOC: HO.LNP 13:38
PROVIDERS: PCP Internal Medicine Medical Oncology; Visit Provider Advanced Practice Midwife
DX: Z30.432 Encounter for removal of intrauterine contraceptive device (principal); N95.1 Menopausal and female climacteric states; Z20.2 Contact with and (suspected) exposure to infections with a predominantly sexual mode of transmission
CPT/HCPCS: 0353U; 58301; 87480; 87510; 87624; 87660; 88142

== ENCOUNTER → 2024-05-27 07:30 | Outpatient (BNV) | payer OTHER, SELFPAY | PROVIDERS: PCP Internal Medicine Medical Oncology; Visit Provider Internal Medicine | DX: Z12.31 Encounter for screening mammogram for malignant neoplasm of breast (principal) | CPT/HCPCS: 77063; 77067 ==

== ENCOUNTER 2024-05-27 07:33 | Outpatient (REF) | payer OTHER, SELFPAY ==
--- NOTE | ~2024-05-27 | MM_ITS ---
EXAMINATION: MM SCREENING DIGITAL BREAST TOMOSYNTHESIS, BILATERAL CLINICAL INFORMATION: Screening. Asymptomatic. COMPARISON: Mammography: Comparison is made with available priors TECHNIQUE: Digital breast mammography with tomosynthesis is performed in both the craniocaudal and mediolateral oblique views along with computer-aided detection (CAD). FINDINGS: There are scattered areas of fibroglandular density (ACR BI-RADS breast composition Category b). Left breast postsurgical changes are stable. There are no significant masses, abnormal calcifications, or other abnormalities. MM/MM tomosynthesis screening BI IMPRESSION: No mammographic evidence of malignancy. ASSESSMENT: BI-RADS BI-RADS 2 - Benign Findings RECOMMENDATION: Routine annual mammography screening. 1 year F/U This examination should not preclude the clinical evaluation of a suspicious palpable abnormality. This patient's information was entered into a reminder system with a target due date for their next mammogram. Electronically signed by: Sarah Pike DO 06/09/2024 04:02 PM EDT
== END 2024-05-27 07:34 | disposition home or self-care (01) ==
LOC: HO.MAMMO 07:33
PROVIDERS: PCP Internal Medicine Medical Oncology; Visit Provider Internal Medicine Medical Oncology
DX: Z12.31 Encounter for screening mammogram for malignant neoplasm of breast (principal)
CPT/HCPCS: 77063; 77067

== ENCOUNTER 2024-08-10 10:13 | Outpatient (REF) | payer OTHER, SELFPAY ==
[2024-08-10 11:51] LABS: Basophils Absolute Auto 0.1 X10*3/uL (0.0-0.2); Basophils Percent Auto 0.7 % (0-2); Eosinophils Absolute Auto 0.1 X10*3/uL (0.0-0.4); Eosinophils Percent Auto 1.7 % (0-4); Hemoglobin 13.2 g/dl (12.0-16.0); Imm Gran Abs Auto 0.01 X10*3/uL (0.00-0.03); Imm Gran Pct Auto 0.1 % (0.0-0.4); Lymphocytes Absolute Auto 3.1 X10*3/uL (1.2-4.9); Lymphocytes Percent Auto 43.8 % (20-40); MANUAL DIFF FLAG SCAN; Mean Corpuscular HGB Conc 32.2 g/dl (31.0-35.0); Mean Corpuscular Hemoglobin 29.1 pg (27.0-33.0); Mean Corpuscular Volume 90.5 fL (80.0-98.0); Monocytes Absolute Auto 0.5 X10*3/uL (0.1-1.2); Monocytes Percent Auto 6.5 % (2-11); Neutrophils Absolute Auto 3.3 x10*3/uL (2.0-8.3); Neutrophils Percent Auto 47.2 % (45-73); PLT CLUMP 1; Red Blood Count 4.53 X10*6/uL (4.20-5.50); Red Cell Distribution Width 13.1 % (11.0-16.0); SCAN SMEAR FLAG 1
[2024-08-10 11:52] LABS: White Blood Count 7.1 X10*3/uL (4.8-10.8)
[2024-08-10 12:03] LABS: Estimated Average Glucose 174 mg/dL; Hemoglobin A1C 208.8439 umol/L; Hemoglobin A1c % 7.7 % (<6.0); Total Hemoglobin (HGBA1C) 3427.3479 umol/L
[2024-08-10 12:13] LABS: Mean Platelet Volume 9.8 fL (9.4-12.3); Platelet Count 168 X10*3/uL (160-400)
[2024-08-10 12:14] LABS: SLIDE REVIEW VERIFIED
[2024-08-10 12:17] LABS: Creatinine Urine 294.39 mg/dL
[2024-08-10 12:23] LABS: Alanine Aminotransferase 28 U/L (0-31); Albumin Level 4.5 g/dL (3.5-5.0); Alkaline Phosphatase 95 U/L (39-117); Anion Gap 14 (12-20); Aspartate Amino Transferase 35 U/L (5-31); Bilirubin Total 0.6 mg/dL (0.0-1.0); Blood Urea Nitrogen 14 mg/dL (9-16); Calcium 9.9 mg/dL (8.4-10.2); Carbon Dioxide 24 mmol/L (22-29); Chloride 106 mmol/L (96-108); Cholesterol 197 mg/dL (<200); Estimated Glomerular Filt Rate > 60; Glucose Fasting 157 mg/dL (60-99); HDL Cholesterol 36 mg/dL (>40); LDL Cholesterol Calculated 84 mg/dL (<100); Potassium 4.8 mmol/L (3.3-5.1); Sodium 139 mmol/L (135-145); Total Protein 7.7 g/dL (6.5-8.0); Triglycerides 385 mg/dL (<150)
== END 2024-08-10 10:14 | disposition home or self-care (01) ==
LOC: HO.LAB 10:13
PROVIDERS: PCP Internal Medicine Medical Oncology; Visit Provider Internal Medicine Medical Oncology
DX: Z00.00 Encounter for general adult medical examination without abnormal findings (principal); E66.9 Obesity, unspecified; E78.2 Mixed hyperlipidemia; E11.65 Type 2 diabetes mellitus with hyperglycemia
CPT/HCPCS: 36415; 80053; 80061; 82043; 82570; 83036; 85025

== ENCOUNTER → 2024-10-14 13:57 | Outpatient (BNVA) | payer OTHER, SELFPAY | PROVIDERS: PCP Internal Medicine Medical Oncology; Visit Provider Advanced Practice Midwife ==

== ENCOUNTER 2025-02-02 08:37 | Outpatient (REF) | payer OTHER, SELFPAY ==
[2025-02-02 08:53] LABS: MANUAL DIFF FLAG NO
--- OUTSIDE RECORDS SUMMARY | 2025-02-02 08:55 | XMS_ITS ---
Author Organization Vasiliy Hays III, MD Address [address] [place] [address] Care Team Providers Care Brood Hatchery Manager Name Role Phone Vasiliy Hays Primary Care Provider [phone] REASON FOR VISIT HCC Risk Code Social History Sex Assigned At : Social History Observation Description Sex Assigned At Female Encounters Encounter Location Date Provider Diagnosis Vasiliy Hays III, MD [address] [place] [address] [place] [address] 01/27/2025 Vasiliy Hays Plan Of Treatment Next Appt Details Provider Name:Vasiliy Hays, 02/09/2025 09:00:00 AM, [address] [place] [address] [place], [address], Provider Name:Vasiliy Hays, 08/11/2025 09:30:00 AM, [address] [place] [address] [place], [address], Progress Notes * Marci GONZALESDOB: 0 (64 yo F)Acc No.[id number]:01/27/2025 Patient:?Marci GONZALES :1960???Age:64 Y???Sex:Female Address: [place], [address] * * Date:?
--- OUTSIDE RECORDS SUMMARY | 2025-02-02 08:55 | XMS_ITS | Patient Health Record ---
Author Organization Vasiliy Hays III, MD Address [address] [place] 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 Name Role Phone Vasiliy Hays Primary Care Provider Allergies Allergen (clinical drug ingredient) Drug/Non Drug Allergy documented on EMR Reaction Allergy Type Onset Date Status Septra Unknown Drug Allergy Active lisinopril Lisinopril Unknown Drug Allergy Activ e Results Component Value Reference Range Notes URINE DIP STICK Reviewed date:08/10/2024 09:48:43 AM Interpretation: Performing Lab: Notes/Report: SG 1.030 1.005 - 1.025 pH 5.0 5.0 - 9.0 NORMA 15 Negative - NIT Negative Negative - PRO 15 Negative - Trace GLU Negative Negative - KET Negative Negative - UBG 0.2 0.1 - 1.8 GREG Negative 0.2 - 1.3 BLD ++ Negative - Menstrating no Lipid Panel Reviewed date:08/13/2024 08:20:11 PM Interpretation: Performing Lab:[facility], [address] [place] [phone] Notes/Report: Triglycerides 385 <150 mg/dL Desirable Triglyceride: less than 150 mg/dL Borderline High Triglyceride 150-199 mg/dL High Triglyceride: 200-499 mg/dL Very High Triglyceride: greater than or equal to 5OO mg/dL Cholesterol 197 <200 mg/dL Desirable Cholesterol: less than 200 mg/dL Borderline High Cholesterol: 200-239 mg/dL High Cholesterol: greater than 239 mg/dL LDL Cholesterol Calculated 84 <100 mg/dL Desirable LDL: less than 100 mg/dL Near Optimal/Above Optimal LDL: 110-129 mg/dL Borderline High LDL: 130-159 mg/dL High LDL: 160-189 mg/dL Very High LDL: greater than or equal to 190 mg/dL HDL Cholesterol 36 >40 mg/dL Desirable HDL: greater than 40 mg/dL Note: This HDL assay may give artificially low results in patients with liver disease. Microalbumin, Random Reviewed date:08/13/2024 08:20:11 PM Interpretation: Performing Lab:[facility], [address] [place] [phone] Notes/Report: Creatinine Urine 294.39 Microalbumin Urine 171.0 Microalbum/Creatinine Ratio Ur 58.0 <30 ug/mg cr Albumin/Creatinine Ratio Reference Ranges: Normal: < 30 ug/mg creatinine Microalbuminuria: 30 - 300 ug/mg creatinine Clinical Albuminuria: > 300 ug/mg creatinine Hemoglobin A1c Reviewed date:08/13/2024 08:20:11 PM Interpretation: Performing Lab:[facility], [address] [place] [phone] Notes/Report: Hemoglobin A1c % 7.7 <6.0 % Hemoglobin A1C Reference Range Adults: 4.8 - 6.0 % Non diabetic: < 6.0 % Goal: < 7.0 % Additional Action Suggested: > 8.0 % Note: Hemoglobin A1c results are invalid for patients with abnormal amounts of HbF. Blood transfusions may impact the HbA1c concentration in the patient sample. Estimated Average Glucose 174 eAG = Estimated average glucose which is %A1C expressed as average glucose, using the formula of the R7G-Eroalup Average Glucose study (ADAG), Diabetes Care, Vol.31,#8, Apr. 2007 MM tomosynthesis screening B I Reviewed date:06/15/2024 06:04:14 AM Interpretation: Performing Lab: Notes/Report: [facility] [address] [place] [address] Mammography Report Signed Patient: Marci York MR#: [id number] : 1960 Acct:[id number] Age/Sex: 64 / F ADM Date: 05/27/24 Loc: HO.MAMMO Attending Dr: Vasiliy Hays MD Ordering Physician: Vasiliy Hays MD Results: 2Benign Findings Date of Service: 05/27/24 Follow Up: 1 Year From Orig ina Mammogram Procedure(s): MM tomosynthesis screening BI Accession Number(s): [id number] cc: Vasiliy Hays MD EXAMINATION: MM SCREENING DIGITAL BREAST TOMOSYNTHESIS, BILATERAL CLINICAL INFORMATION: Screening. Asymptomatic. COMPARISON: Mammography: Comparison is made with available priors TECHNIQUE: Digital breast mammography with tomosynthesis is performed in both the craniocaudal and mediolateral oblique views along with computer-aided detection (CAD). FINDINGS: There are scattered areas of fibroglandular density (ACR BI-RADS breast composition Category b). Left breast postsurgical changes are stable. There are no significant masses, abnormal calcifications, or other abnormalities. MM/MM tomosynthesis screening BI IMPRESSION: No mammographic evidence of malignancy. ASSESSMENT: BI-RADS BI-RADS 2 - Benign Findings RECOMMENDATION: Routine annual mammography screening. 1 year F/U This examination should not preclude the clinical evaluation of a suspicious palpable abnormality. This patient's information was entered into a reminder system with a target due date for their next mammogram. Electronically signed by: Sarah Pike DO 06/09/2024 04:02 PM EDT Dictated By: Sarah Pike DO Signed By: <Electronically signed by Sarah Pike DO in OV> 06/09/24 1602 DD/ 0740 TD/TT: 05/27/24 0755 Tilt Tray Driver: [facility] [address] [place] [address] Mammography Report Signed Patient: Kathy York MR#: [id number] : 1960 Acct:[id number] Age/Sex: 64 / F ADM Date: 05/27/24 Loc: HO.MAMMO Attending Dr: Vasiliy Hays MD Ordering Physician: Vasiliy Hays MD Results: 2Benign Findings Date of Service: 05/27/24 Follow Up: 1 Year From Orig ina Mammogram Procedure(s): MM tomosynthesis screening BI Accession Number(s): [id number] cc: Vasiliy Hays MD EXAMINATION: MM SCREENING DIGITAL BREAST TOMOSYNTHESIS, BILATERAL CLINICAL INFORMATION: Screening. Asymptomatic. COMPARISON: Mammography: Comparison is made with available priors TECHNIQUE: Digital breast mammography with tomosynthesis is performed in both the craniocaudal and mediolateral oblique views along with computer-aided detection (CAD). FINDINGS: There are scattered areas of fibroglandular density (ACR BI-RADS breast composition Category b). Left breast postsurgical changes are stable. There are no significant masses, abnormal calcifications, or other abnormalities. MM/MM tomosynthesis screening BI IMPRESSION: No mammographic evidence of malignancy. ASSESSMENT: BI-RADS BI-RADS 2 - Benign Findings RECOMMENDATION: Routine annual mammography screening. 1 year F/U This examination should not preclude the clinical evaluation of a suspicious palpable abnormality. This patient's information was entered into a reminder system with a target due date for their next mammogram. Electronically shey d by: Sarah Pike DO 06/09/2024 04:02 PM EDT Dictated By: Sarah Pike DO Signed By: <Electronically signed by Sarah Pike DO in OV> 06/09/24 1602 DD/ 0740 TD/TT: 05/27/24 0755 Tilt Tray Driver: Complete Blood Count Auto Di ff Reviewed date:08/13/2024 08:20:11 PM Interpretation: Performing Lab:[facility], [address] [place] [phone] Notes/Report: White Blood Count 7.1 4.8-10.8 X10*3/uL Red Blood Count 4.53 4.20-5.50 X10*6/uL Hemoglobin 13.2 12.0-16.0 g/dl Hematocrit 41.0 37.0-47.0 % Mean Corpuscular Volume 90.5 80.0-98.0 fL Mean Corpuscular Hemoglobin 29.1 27.0-33.0 pg Mean Corpuscular HGB Conc 32.2 31.0-35.0 g/dl Red Cell Distribution Width 13.1 11.0-16.0 % Platelet Count 168 160-400 X10*3/uL Mean Platelet Volume 9.8 9.4-12.3 fL Neutrophils Percent Auto 47.2 45-73 % Imm Gran Pct Auto 0.1 0.0-0.4 % Lymphocytes Percent Auto 43.8 20-40 % Monocytes Percent Auto 6.5 2-11 % Eosinophils Percent Auto 1.7 0-4 % Basophils Percent Auto 0.7 0-2 % NRBC Pct Auto 0.0 0.0-0.2 /100WBC Neutrophils Absolute Auto 3.3 2.0-8.3 x10*3/u L Imm Gran Abs Auto 0.01 0.00-0.03 X10*3/uL Lymphocytes Absolute Auto 3.1 1.2-4.9 X10*3/u L Monocytes Absolute Auto 0.5 0.1-1.2 X10*3/uL Eosinophils Absolute Auto 0.1 0.0-0.4 X10*3/u L Basophils Absolute Auto 0.1 0.0-0.2 X10*3/uL NRBC Abs Auto 0.000 0.0-0.012 X10*3/uL White Blood Count 7.1 4.8-10.8 X10*3/uL Red Blood Count 4.53 4.20-5.50 X10*6/uL Hemoglobin 13.2 12.0-16.0 g/dl Hematocrit 41.0 37.0-47.0 % Mean Corpuscular Volume 90.5 80.0-98.0 fL Mean Corpuscular Hemoglobin 29.1 27.0-33.0 pg Mean Corpuscular HGB Conc 32.2 31.0-35.0 g/dl Red Cell Distribution Width 13.1 11.0-16.0 % Platelet Count 168 160-400 X10*3/uL Mean Platelet Volume 9.8 9.4-12.3 fL Neutrophils Percent Auto 47.2 45-73 % Imm Gran Pct Auto 0.1 0.0-0.4 % Lymphocytes Percent Auto 43.8 20-40 % Monocytes Percent Auto 6.5 2-11 % Eosinophils Percent Auto 1.7 0-4 % Basophils Percent Auto 0.7 0-2 % NRBC Pct Auto 0.0 0.0-0.2 /100WBC Neutrophils Absolute Auto 3.3 2.0-8.3 x10*3/u L Imm Gran Abs Auto 0.01 0.00-0.03 X10*3/uL Lymphocytes Absolute Auto 3.1 1.2-4.9 X10*3/u L Monocytes Absolute Auto 0.5 0.1-1.2 X10*3/uL Eosinophils Absolute Auto 0.1 0.0-0.4 X10*3/u L Basophils Absolute Auto 0.1 0.0-0.2 X10*3/uL NRBC Abs Auto 0.000 0.0-0.012 X10*3/uL CORRECTED REPORT CORRECTED REPORT Comprehensive Amelia. Panel Fa st Reviewed date:08/13/2024 08:20:11 PM Interpretation: Performing Lab:[facility], [address] [place] [phone] Notes/Report: Sodium 139 135-145 mmol/L Potassium 4.8 3.3-5.1 mmol/L Slight Hemolysis.Interpret result with caution. Chloride 106 96-108 mmol/L Carbon Dioxide 24 22-29 mmol/L Anion Gap 14 12-20 Blood Urea Nitrogen 14 9-16 mg/dL Creatinine 0.74 0.5-1.4 mg/dL Estimated Glomerular Filt Rate > 60 Chronic Kidney Disease: Estimated GFR < 60 mL/min/1.73m2 Severe Kidney Disease: Estimated GFR < 15 mL/min/1.73m2 Glucose Fasting 157 60-99 mg/dL A fasting glucose of 126 mg/dl or greater on more than one occasion is considered diagnostic of diabetes. Calcium 9.9 8.4-10.2 mg/dL Bilirubin Total 0.6 0.0-1.0 mg/dL Aspartate Amino Transferase 35 5-31 U/L Slight Hemolysis.Interpret result with caution. Alanine Aminotransferase 28 0-31 U/L Total Protein 7.7 6.5-8.0 g/dL Albumin Level 4.5 3.5-5.0 g/dL Alkaline Phosphatase 95 39-117 U/L SLIDE REVIEW Reviewed date:08/13/2024 08:20:11 PM Interpretation: Performing Lab:[facility], [address] [place] [phone] Notes/Report: SLIDE REVIEW VERIFIED Diabetic Eye Exam Reviewed date:08/24/2024 10:14:09 AM Interpretation:undefined Performing Lab: Notes/Report: undefined Reason For Referral Reason Consult and Treat Annual Diabetic Eye Exam Diagnosis 1 Type 2 diabetes alirio itus with hyperglycemia, without long-term current use of insulin (E11.65) Referral Organization Vasiliy Hays III, MD Referring Provider First Name Vasiliy Referring Provider Last Name Lis Referring Provider Speciality Internal M edicine Referred Provider [facility] Referred Provider Specialty Ophthalmolog y General Notes D, Shaina 08/17/2024 03:24:31 PM >Referral faxed with progress note Referral Priority Routine Referral Appointment Date 08/19/2024 Medications Medication SIG (Take, Route, Frequency, Duration) Notes Start Date End Date Status Gauze Pads 3 X3 as directed - to alonzo ck fasting blood sugar 10/01/2022 Active Alcohol Pads 70 % as directed - use to check Fasting blood sugar 10/01/2022 Active Lancets - as directed - use to check Fasting blood sugar 10/01/2022 Active FreeStyle Lite w/Device as directed - to check blood sugar fasting 10/01/2022 Active Trulicity 1.5 MG/0.5ML as directed Subcutaneous Active metFORMIN HCl 1000 MG TAKE 1 TABLET BY M OUTH TWICE DAILY WITH MEAL Orally twice a day for 90 days Active Atorvastatin Calcium 10 MG TAKE 1 TABLET BY MOUTH EVERY DAY Active Pioglitazone HCl 15 MG TAKE 1 TABLET BY MOUTH EVERY DAY for 30 Active FreeStyle Lite Test - USE DIRECTED TO CHECK BLOOD SUGAR Active Atenolol 25 MG TAKE 1 TABLET BY ALIYAH TH EVERY DAY for 90 Active Social History Tobacco Use: Social History Observation Description Date Details (start date - stop date) Never Smoker NA - NA Sex Assigned At : Social History Observation Description Sex Assigned At Female Tobacco Use/Smoking Question Answer Notes Patient is a nonsmoker Additional Findings: Tobacco Non-User Aggressive non-smoker Tobacco Control (Standard) Question Answer Notes Tobacco use: Nonsmoker Additional Findings: Tobacco non-user Aggressive nonsmoker AUDIT-C (Standard) Question Answer Notes Did you have a drink containing alcohol in the p ast year? No Points 0 Interpretation Negative Problems Problem Type SNOMED Code ICD Code Onset Dates Problem Status W/U Status Risk Notes Problem 02480452 Postmenopausal (Z78.0) Active confirmed She will have a bone density test periodically. Problem 545799514506312 Obesity (BMI 30.0-34.9) (E66.9) Active confirmed She has lost 11 pounds in her body mass index is now 31.28. We reviewed her weight loss strategy in detail today. Problem 468269402 Mixed hyperlipidemia (E78.2) Active confirmed Her triglycerides continue to be elevated at 385. Her total cholesterol is 197.She will continue to lose weight and avoid animal fat in her diet. They fasting lipid profile will be done frequently until control is achieved. Problem 61209413 Essential hypertension (I10) Active confirmed Her blood pressure today is 135/80. We made a plan to lose weight and restrict sodium. No change in her medications was necessary. Problem 174514732536049 Carpal tunnel syndrome of right wrist (G56.01) Active confirmed The symptoms are mild and she does not require surgery at this time. This problem and symptom. Will be followed carefully. Problem 064467747 History of depression (Z86.59) Active confirmed She is not depressed today and seems happy and healthy. If this returns. She will come to the office at once. Problem 306699338 History of rhabdomyolysis (Z87.39) Active confirmed She will be observed during hot weather for repeat episodes of this problem. Problem 210956153 Sensorineural hearing loss (SNHL) of both ears (H90.3) Active confirmed Her hearing loss has been stable. Communication was best if she set directly in front of me and I spoke up. I have offered to refer her to audiology, but she has declined. Problem 391346961 Allergy to lisinopril (Z88.8) Active confirmed She has a history of allergies to a sulfa-containi ng medication as well. Problem 15844282 Type 2 diabetes mellitus with hyperglycemia, without long-term current use of insulin (E11.65) Active confirmed Her fasting glucose is now 157. Continue her weight loss and her hemoglobin A1c will he followed. If her glucose remains at this level her medications will be adjusted. She has been referred to ophthalmology for her annual diabetic eye care. Vital Signs Heart Rate 62 /min 08/10/2024 Temperature 98.2 degrees Fahrenheit 08/10/2024 Blood pressure diastolic 88 mm Hg 08/10/2024 Height 70 in 08/10/2024 Blood pressure systolic 140 mm Hg 08/10/2024 Weight 218 lbs 08/10/2024 BMI 31.28 kg/m2 08/10/2024 Encounters Encounter Location Date Provider Diagnosis Vasiliy Hays III, MD [address] [place] [address] [place] [phone] 08/10/2024 Vasiliy Hays Immunization not carried out because of patient refusal Z28.21 ; Type 2 diabetes mellitus with hyperglycemia, without long-term current use of insulin E11.65 ; Obesity (BMI 30.0-34.9) E66.9 ; Mixed hyperlipidemia E78.2 ; Essential hypertension I10 ; History of depression Z86.59 and Sensorineural hearing loss (SNHL) of both ears H90.3 Vasiliy Hays III, MD [address] [place] [address] [place] [phone] 01/27/2025 Vasiliy Hays Assessments Encounter Date Diagnosis (ICD Code) Assessment Notes Treat ment Notes Treatment Clinical Notes 08/10/2024 Immunization not carried out because of patient refusal (ICD-10 - Z28.21) She declined influenza vaccine today. 08/10/2024 Type 2 diabetes mellitus with hyperglycemia, without long-term current use of insulin (ICD-10 - E11.65) Her fasting glucose is now 157. Continue her weight loss and her hemoglobin A1c will he followed. If her glucose remains at this level her medications will be adjusted. She has been referred to ophthalmology for her annual diabetic eye care. 08/10/2024 Obesity (BMI 30.0-34.9) (ICD-10 - E66.9) She has lost 11 pounds in her body mass index is now 31.28. We reviewed her weight loss strategy in detail today. 08/10/2024 Mixed hyperlipidemia (ICD-10 - E78.2) Her triglycerides continue to be elevated at 385. Her total cholesterol is 197.She will continue to lose weight and avoid animal fat in her diet. They fasting lipid profile will be done frequently until control is achieved. 08/10/2024 Essential hypertension (ICD-10 - I10) Her blood pressure today is 135/80. We made a plan to lose weight and restrict sodium. No change in her medications was necessary. 08/10/2024 History of depressio n (ICD-10 - Z86.59) She is not depressed today and seems happy and healthy. If this returns. She will come to the office at once. 08/10/2024 Sensorineural hearin g loss (SNHL) of both ears (ICD-10 - H90.3) Her hearing loss has been stable. Communication was best if she set directly in front of me and I spoke up. I have offered to refer her to audiology, but she has declined. Plan Of Treatment Pending Test Test Name Order Date PROFILE, FASTING (COMPREHENSIVE METABOLI C) 08/10/2024 PROFILE, FASTING (COMPREHENSIVE METABOLI C) 08/05/2023 PROFILE, FASTING (COMPREHENSIVE METABOLI C) 01/09/2023 HEMOGLOBIN A1C (GLYCOHEMOGLOBIN) 023 LIPID PANEL 08/05/2023 LIPID PANEL 01/09/2023 CBC w DIFF 01/09/2023 CBC w DIFF 08/05/2023 URINALYSIS (UA) 08/05/2023 URINE CULTURE 08/05/2023 CBC WITH AUTO DIFF 08/10/2024 Next Appt Details Provider Name:Vasiliy Hays, 02/09/2025 09:00:00 AM, [address] [place] [address] [address], [place], [phone], Provider Name:Vasiliy Hays, 08/11/2025 09:30:00 AM, [address] [place] [address] [address], [place], [phone], Insurance Providers Payer Name Payer Address Payer Phone Subscriber Number Group Number Insured Name Patient Relationship to Insured Coverage Start Date Coverage End Date [facility] [address] [facility] [address] [facility] [place] [phone] [id number] [place], Marci Self - patient is the insured 1 Medical (General) History Medical History History ICD Code Hyperlipidemia, unspecified hyperlipidem ia type E78.5 obesity history of depression essential hypertension nontraumatic rhabdomyolysis April 2015 [facility] last menstrual period July 2017 frequent headaches surgical repair of fractured right ankle 1994 intolerance of lisinopril, cough allergic to sulfa carpal tunnel syndrome, right wrist fracture left humerus in fall April 201 8 benign breast biopsies March 2017 achro[place]ordon mild sensorineural hearing loss 2016 mirena iud December 2009 mild hearing sensory neural loss by antonino ogram March 2017 subcutaneous nodules July 2015 ast menstrual period Fibrocystic disease left breast June 2021 Adult onset type 2 diabetes mellitus Surgical History Surgery Date(Month/Year) mariella and pins in right ankle s/p fx 1994 fracture left humerus nondisplaced, fall at home 11/2016 benign biopsy of breast 03/2017 biopsy subcutaneous nodule l eft upper extremity, Dr. Ware, benign tissue 2017 left lumpectomy 06/2021 tooth removal X2 07/2022 tooth extraction 06/2023 No history Hospitalization History Reason Date(Month/Year) No history
--- OUTSIDE RECORDS SUMMARY | 2025-02-02 08:55 | XMS_ITS ---
Author Organization Vasiliy Hays III, MD Address [address] [place] [address] Care Team Providers Care Document Control Manager Name Role Phone Vasiliy Hays Primary Care Provider REASON FOR VISIT follow up Social History Sex Assigned At : Social History Observation Description Sex Assigned At Female Encounters Encounter Location Date Provider Diagnosis Vasiliy Hays III, MD [address] [place] [address] [place] [phone] 09/25/2023 Vasiliy Hays Plan Of Treatment Next Appt Details Provider Name:Vasiliy Hays, 02/09/2025 09:00:00 AM, [address] [place] [address] [place], [phone], Provider Name:Vasiliy Hays, 08/11/2025 09:30:00 AM, [address] [place] [address] [place], [phone], Progress Notes * Marci GONZALESDOB: 0 (64 yo F)Acc No.[id number]:09/25/2023 Progress Notes Patient:?CHRISTIAN Marci [place]o Provider:?Vasiliy Hays MD :1960???Age:63 Y???Sex:Female D ate:09/25/2023 Address:[address] [place], [place] [address]AN T[place] [id number] Subjective: * Chief Complaints: * ???1. Follow up. * Medical History:? Objective: * Vitals:? Assessment: Plan: * Treatment: * Images: * The named appointment provid er may or may not be the originator of this progress note, and it is not deemed complete until electronically signed by the appointment provider. Sign off status: Pending * Provider:?Vasiliy Hays MD Date:?09/16 Generated for Minerva pradhan/Holger/Sarika on:?02/02/2025 08:55 AM EDT
--- OUTSIDE RECORDS SUMMARY | 2025-02-02 08:56 | XMS_ITS ---
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 Operator Name Role Phone Vasiliy Hays Primary Care [...] Panel Reviewed date:08/13/2024 08:20:11 PM Interpretation: Performing Lab:[facility], [address] [place] [phone] Notes/Report: Triglycerides 385 <150 mg/dL Desirable Triglyceride: [...] Random Reviewed date:08/13/2024 08:20:11 PM Interpretation: Performing Lab:[facility], [address] [place] [phone] Notes/Report: Creatinine Urine 294.39 Microalbumin Urine 171.0 Microalbum/Creatinine Ratio Ur 58.0 <30 ug/mg cr Albumin/Creatinine Ratio Reference Ranges: Normal: < 30 ug/mg creatinine Microalbuminuria: 30 - 300 ug/mg creatinine Clinical Albuminuria: > 300 ug/mg creatinine Hemoglobin A1c Reviewed date:08/13/2024 08:20:11 PM Interpretation: Performing Lab:[facility], [address] [place] [phone] Notes/Report: Hemoglobin A1c % 7.7 <6.0 % [...] average glucose, using the formula of the H2I-Mgishua Average Glucose study (ADAG), Diabetes Care, Vol.31,#8, Apr. 2007 Reason For Referral Reason Consult and Treat Annual Diabetic Eye Exam Diagnosis 1 Type 2 diabetes alirio itus with hyperglycemia, without long-term current use of insulin (E11.65) Referral Organization Vasiliy Hays III, MD Referring Provider First Name Vasiliy Referring Provider Last Name Lis Referring Provider Speciality Internal M edicine Referred Provider Lukas Cruz Referred Provider Specialty Ophthalmolog y General Notes D Shaina 08/17/2024 03:24:31 PM >Referral faxed with progress note Referral Priority Routine Referral Appointment Date 08/19/2024 REASON FOR VISIT annual exam Medications Medication SIG (Take, Route, Frequency, Duration) Notes Start Date End Date Status Gauze Pads 3 X3 as directed - to alonzo ck fasting blood sugar Mon/Wed/Fri 10/01/2022 Active Alcohol Pads 70 % as directed - use to check Fasting blood sugar 10/01/2022 Active Lancets - as directed - use to check Fasting blood sugar 10/01/2022 Active FreeStyle Lite w/Device as directed - to check blood sugar fasting 10/01/2022 Active Trulicity 1.5 MG/0.5ML as directed Subcutaneous Active Atenolol 25 MG TAKE 1 TABLET BY ALIYAH TH EVERY DAY Active Pioglitazone HCl 15 MG TAKE 1 TABLET BY MOUTH EVERY DAY Active metFORMIN HCl 1000 MG TAKE 1 TABLET BY M OUTH TWICE DAILY WITH MEAL Active Atorvastatin Calcium 10 MG TAKE 1 TABLET BY MOUTH EVERY DAY Active FreeStyle Lite Test - USE DIRECTED TO CHECK BLOOD SUGAR Active Social History Tobacco Use: Social History [...] ast year? No Points 0 Interpretation Negative Vital Signs Temperature 98.2 degrees Fahrenheit 08/10/20 24 Blood pressure systolic 140 mm Hg 08/10/20 24 Blood pressure diastolic 88 mm Hg 024 Heart Rate 62 /min 08/10/2024 Height 70 in 08/10/2024 Weight 218 lbs 08/10/2024 BMI 31.28 kg/m2 08/10/2024 Encounters Encounter Location Date Provider Diagnosis Vasiliy Hays III, MD [address] [place] [address] [address] [place], [place] [phone] 08/10/2024 Vasiliy Hays Immunization not carried out because of patient refusal Z28.21 ; Type 2 diabetes mellitus with hyperglycemia, without long-term current use of insulin E11.65 ; Obesity (BMI 30.0-34.9) E66.9 ; Mixed hyperlipidemia E78.2 ; Essential hypertension I10 ; History of depression Z86.59 and Sensorineural hearing loss (SNHL) of both ears H90.3 Assessments Encounter Date Diagnosis (ICD Code) Assessment [...] but she has declined. Plan Of Treatment Medication Medication Name Sig Start Date Stop Date Notes Gauze Pads 3 X3 as directed - to alonzo ck fasting blood sugar 10/01/2022 Alcohol Pads 70 % as directed - use to check Fasting blood sugar 10/01/2022 Lancets - as directed - use to check Fasting blood sugar 10/01/2022 FreeStyle Lite w/Device as directed - to check blood sugar fasting Mon10/01/2022 Trulicity 1.5 MG/0.5ML as directed Subcutaneous Atenolol 25 MG TAKE 1 TABLET BY ALIYAH TH EVERY DAY Pioglitazone HCl 15 MG TAKE 1 TABLET BY MOUTH EVERY DAY metFORMIN HCl 1000 MG TAKE 1 TABLET BY M OUTH TWICE DAILY WITH MEAL Atorvastatin Calcium 10 MG TAKE 1 TABLET BY MOUTH EVERY DAY FreeStyle Lite Test - USE DIRECTED TO CHECK BLOOD SUGAR Pending Test Test Name Order Date PROFILE, FASTING (COMPREHENSIVE METABOLI C) 08/10/2024 CBC WITH AUTO DIFF 08/10/2024 Referrals Referral Date Details 08/10/2024 08/10/2024, Consult and Treat Annual Diabetic Eye Exam, [facility] Next Appt Details Follow Up: 6 Months, In six months, Reason: OV, Routine check-up Provider Name:Vasiliy Hays, 02/09/2025 09:00:00 AM, [address] [place] [address] [address], [place], [phone], Provider Name:Vasiliy Hays, 08/11/2025 09:30:00 AM, [address] [place] [address] [address], [place], [phone], Progress Notes * Marci GONZALESDOB: 0 (64 yo F)Acc No.[id number]:08/10/2024 Progress Notes Patient:?Marci GONZALES Provider:?Vasiliy Hays MD :1960???Age:64 Y???Sex:Female D ate:08/10/2024 Address:[address] [place] [id number] Subjective: * Chief Complaints: * ???Annual exam * HPI: ???Depression Screening:?PHQ-9?Little interest or pleasure in doing things?Not at all ?Feeling down, depressed, or hopeless?Not at all ?Trouble falling or staying asleep, or sleeping too much?Several days ?Feeling tired or having little energy?Not at all ?Poor appetite or overeating?Several days ?Feeling bad about yourself or that you are a failure, or have let yourself or your family down?Not at all ?Trouble concentrating on things, such as reading the newspaper or watching television?Not at all ?Moving or speaking so slowly that other people could have noticed; or the opposite, being so fidgety or restless that you have been moving around a lot more than usual?Not at all ?Thoughts that you would be better off or of hurting yourself in some way?Not at all ?Total Score?2 ?Interpretation?Minimal Depression ???COVID-19 Screening:?Questions?Have you experienced fever, chills, cough, sore throat, shortness of breath, difficulty breathing, muscle aches, loss of taste or smell??No ?Have you been exposed to the virus within the last 10 days??No ?Have you travelled internationally in the last 10 days??No ?Have you been exposed to COVID-19 in the past??No ???SDOH Questions:?SDOH Questions?In the past year have you been worried about losing your housing??No ?In the past year have you or any family members you live with been unable to get any of the following when it was really needed? Check all that apply:?None ???:?The patient, a 64-year-old female, presented with occasional low blood sugar episodes, which she manages by eating when she feels shaky. She has not had any blood tests done in about a year. The patient also reported long-term sleep issues, waking up frequently during the night and sometimes having difficulty falling back asleep. She has been using [id number] hearing aids from her brother, which have significantly improved her hearing. The patient has diabetes and has been referred to an eye doctor for potential retinopathy. She also has a skin growth that has not increased in size, but it is not cancerous. The patient has been doing self-examinations for breast lumps and has not noticed any changes. She expressed a desire to lose weight but struggles due to her enjoyment of eating. * ROS:?General/Constitutional:?pain?Right wrist, otherwise only normal aches and pains.?Chills?denies.?Fatigue?admits.?Fever?denies.?ENT:?Decreased hearing?in both ears.?Respiratory:?Cough?denies.?Cardiovascular:?Chest pain with exertion?denies.?Dyspnea on exertion?denies.?Shortness of breath?denies.?Gastrointestinal:?Constipation?occasional.?Decreased appetite?denies.?Diarrhea?denies.?Heartburn?denies.?Nausea?denies.?Rectal bleeding?denies.?Vomiting?denies.?Hematology:?bruising?denies.?petechiae?denies.?Swollen glands?none have been noted.?Genitourinary:?Frequent urination?admits.?Musculoskeletal:?Muscle aches?denies.?Painful joints?denies.?Sciatica?denies.?Weakness?denies.?Skin:?Itching?denies.?Rash?denies.?Skin lesion(s)?Unchanged.?Neurologic:?Difficulty speaking?denies.?Dizziness?denies.?Headache?denies.?Low back pain?denies.?Psychiatric:?Depressed mood?denies.? * Medical History:? * Surgical History:?mariella and pi ns in right ankle s/p fx 1994fracture left humerus nondisplaced, fall at home 11/2016benign biopsy of breast 03/2017biopsy subcutaneous nodule left upper extremity, Dr. Ware, benign tissue 2017left lumpectomy 06/2021tooth removal X2 07/2022tooth extraction 06/2023No history * Hospitalization/Major Diagno stic Procedure:?No history * Family History:?Father: dece ased 72 yrs, Bladder cancer, diagnosed with HTN, Cancer.?Mother: 77 yrs, Seizure disorder, rheumatoid arthritis, recent stroke, renal failure, diagnosed with HTN.?Siblings: alive.?Maternal Grand Father: , diagnosed with Cancer.?Maternal Grand Mother: , diagnosed with Cancer.?1 brother(s) , 2 sister(s) - healthy. 3 daughter(s) - healthy. .? One sister has adult-onset diabetes mellitus. Another sister has multiple sclerosis. A brother has hypertension. One of her siblings has a rare I disease. One of her 3 daughters has asthma. She is not aware of any family history of mental illness or substance use disorder. * Social History:?Tobacco Use:?Tobacco Use/Smoking?Patient is a?nonsmoker ?Additional Findings: Tobacco Non-User?Aggressive non-smoker ?Tobacco Control (Standard)?Tobacco use:?Nonsmoker ?Additional Findings: Tobacco non-user?Aggressive nonsmoker ???Drugs/Alcohol:?Drugs?Have you used drugs other than those for medical reasons in the past 12 months??No ???Drug/Alcohol:?AUDIT-C (Standard)?Did you have a drink containing alcohol in the past year??No ?Points?0 ?Interpretation?Negative ???She was born and [place], [place] and lives in [place]. 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 She is legally . She has 3 daughters, one of whom has asthma. She has had 3 pregnancies, but no deliveries. She has a gym membership and exercises 3 times a week. * Medications:?TakingTrulicity 1.5 MG/0.5ML Solution Pen-injector as directed Subcutaneous FreeStyle Lite w/Device Kit as directed - to check blood sugar fasting Mon/Sat/Fri Alcohol Pads 70 % Pad as directed - use to check Fasting blood sugar Mon/Sat/Fri Lancets - Miscellaneous as directed - use to check Fasting blood sugar Mon/Sat/Fri Gauze Pads 3 X3 Pad as directed - to check fasting blood sugar Mon/Sat/Fri Atenolol 25 MG Tablet TAKE 1 TABLET BY MOUTH EVERY DAY metFORMIN HCl 1000 MG Tablet TAKE 1 TABLET BY MOUTH TWICE DAILY WITH MEAL Pioglitazone HCl 15 MG Tablet TAKE 1 TABLET BY MOUTH EVERY DAY FreeStyle Lite Test - Strip USE DIRECTED TO CHECK BLOOD SUGAR MON/SAT/SAT Atorvastatin Calcium 10 MG Tablet TAKE 1 TABLET BY MOUTH EVERY DAY Medication List reviewed and reconciled with the patientTaking Trulicity 1.5 MG/0.5ML Solution Pen-injector as directed Subcutaneous Taking FreeStyle Lite w/Device Kit as directed - to check blood sugar fasting Mon/Sat/Sat Taking Alcohol Pads 70 % Pad as directed - use to check Fasting blood sugar Mon/Sat/Sat Taking Lancets - Miscellaneous as directed - use to check Fasting blood sugar Mon/Sat/Sat Taking Gauze Pads 3 X3 Pad as directed - to check fasting blood sugar Mon/Sat/Sat Taking Atenolol 25 MG Tablet TAKE 1 TABLET BY MOUTH EVERY DAY Taking metFORMIN HCl 1000 MG Tablet TAKE 1 TABLET BY MOUTH TWICE DAILY WITH MEAL Taking Pioglitazone HCl 15 MG Tablet TAKE 1 TABLET BY MOUTH EVERY DAY Taking FreeStyle Lite Test - Strip USE DIRECTED TO CHECK BLOOD SUGAR MON/WED/SAT Taking Atorvastatin Calcium 10 MG Tablet TAKE 1 TABLET BY MOUTH EVERY DAY Medication List reviewed and reconciled with the patient * Allergies:?Lisinopril: Aller gySeptra: Allergyno[Allergies Verified] Objective: * Vitals:?Ht: 70, Wt: 218, BMI :31.28, BP: 140/88, HR: 62, Temp: 98.2, Wt-k.88. * ???Past Orders: Imaging:MM tomosynthesis scr eening BI * Performed Date 05/27/2024 2023 05/15/2022 07:40 AM 08:28 AM 08:29 AM Order Date 05/27/2024 2023 05/15/2022 * Lab:Lipid Panel * Collection Date 08/10/2024 08/05/2023 11/29/2022 Collection Time 10:27 AM 10:35 AM 10:24 AM Order Date 08/10/2024 08/05/2023 11/29/2022 Triglycerides 385?H (Ref Range: <150 mg/dL) 300?H (Ref Range: <150 mg/dL) 325 (Ref Range: mg/dL) Cholesterol 197 (Ref Range: <200 mg/dL) 180 (Ref Range: <200 mg/dL) 193 (Ref Range: mg/dL) LDL Cholesterol Calculated 84 (Ref Range: <100 mg/dL) 82 (Ref Range: <100 mg/dL) 92 (Ref Range: mg/dl) HDL Cholesterol 36?L (Ref Range: >40 mg/dL) 38?L (Ref Range: >40 mg/dL) 36 (Ref Range: mg/dL) Clinical Info: Please have this testing 1 week prior to your next appointment Please fast for 12-14 hours prior to having this labwork done. You may have black coffee or tea with no milk or sugar. May have water,Please have this testing 1 week prior to your next appointment,PLEASE FAX COMPLETED RESULTS TO [phone] ???Lab:SLIDE REVIEW (Order Date - 08/10/2024) (Collection Date & Time - 08/10/2024 10:27 AM)?ValueReference Range?SLIDE REVIEWVERIFIED- * Lab:URINE DIP STICK * Collection Date 08/10/2024 08/05/2023 07/06/2021 Collection Time 09:40 AM Order Date 08/10/2024 08/05/2023 07/06/2021 Result: abnormal SG 1.030 (Ref Range: 1.005 - 1.025) 1.010 (Ref Range: 1.005 - 1.025) 1.030 pH 5.0 (Ref Range: 5.0 - 9.0) 5.0 (Ref Range: 5.0 - 9.0) 5 NORMA 15 (Ref Range: Negative -) 70+ (Ref Range: Negative -) neg NIT Negative (Ref Range: Negative -) + (Ref Range: Negative -) neg PRO 15 (Ref Range: Negative - Trace) 30 (Ref Range: Negative - Trace) 30 GLU Negative (Ref Range: Negative -) normal (Ref Range: Negative -) normal KET Negative (Ref Range: Negative -) neg (Ref Range: Negative -) neg UBG 0.2 (Ref Range: 0.1 - 1.8) 0.2 (Ref Range: 0.1 - 1.8) normal GREG Negative (Ref Range: 0.2 - 1.3) neg (Ref Range: 0.2 - 1.3) neg BLD ++ (Ref Range: Negative -) large ++ (Ref Range: Negative -) neg Menstrating no no no * Lab:Comprehensive [place]. Pane l Fast * Collection Date 08/10/2024 08/05/2023 11/29/2022 Collection Time 10:27 AM 10:35 AM 10:24 AM Order Date 08/10/2024 08/05/2023 11/29/2022 Sodium 139 (Ref Range: 135-145 mmol/L) 139 (Ref Range: 135-145 mmol/L) 141 (Ref Range: 135-145 mmol/L) Bilirubin Total 0.6 (Ref Range: 0.0-1.0 mg/dL) 0.6 (Ref Range: 0.0-1.0 mg/dL) 0.9 (Ref Range: 0.0-1.0 mg/dL) Aspartate Amino Transferase 35?H (Ref Range: 5-31 U/L) 36?H (Ref Range: 5-31 U/L) 23 (Ref Range: 5-31 U/L) Alanine Aminotransferase 28 (Ref Range: 0-31 U/L) 23 (Ref Range: 0-31 U/L) 24 (Ref Range: 0-31 U/L) Total Protein 7.7 (Ref Range: 6.5-8.0 g/dL) 7.5 (Ref Range: 6.5-8.0 g/dL) 7.2 (Ref Range: 6.5-8.0 g/dL) Albumin Level 4.5 (Ref Range: 3.5-5.0 g/dL) 4.5 (Ref Range: 3.5-5.0 g/dL) 4.6 (Ref Range: 3.5-5.0 g/dL) Alkaline Phosphatase 95 (Ref Range: 39-117 U/L) 73 (Ref Range: 39-117 U/L) 71 (Ref Range: 39-117 U/L) Potassium 4.8 (Ref Range: 3.3-5.1 mmol/L) 4.5 (Ref Range: 3.3-5.1 mmol/L) 5.3?H (Ref Range: 3.3-5.1 mmol/L) Chloride 106 (Ref Range: 96-108 mmol/L) 106 (Ref Range: 96-108 mmol/L) 105 (Ref Range: 96-108 mmol/L) Carbon Dioxide 24 (Ref Range: 22-29 mmol/L) 25 (Ref Range: 22-29 mmol/L) 26 (Ref Range: 22-29 mmol/L) Anion Gap 14 (Ref Range: 12-20) 13 (Ref Range: 12-20) 15 (Ref Range: 12-20) Blood Urea Nitrogen 14 (Ref Range: 9-16 mg/dL) 13 (Ref Range: 9-16 mg/dL) 21?H (Ref Range: 9-16 mg/dL) Creatinine 0.74 (Ref Range: 0.5-1.4 mg/dL) 0.75 (Ref Range: 0.5-1.4 mg/dL) 0.85 (Ref Range: 0.5-1.4 mg/dL) Estimated Glomerular Filt Rate > 60 > 60 > 60 Glucose Fasting 157?H (Ref Range: 60-99 mg/dL) 201?H (Ref Range: 60-99 mg/dL) 191?H (Ref Range: 60-99 mg/dL) Calcium 9.9 (Ref Range: 8.4-10.2 mg/dL) 9.4 (Ref Range: 8.4-10.2 mg/dL) 9.5 (Ref Range: 8.4-10.2 mg/dL) * Lab:Complete Blood Count Aut o Diff * Collection Date 08/10/2024 08/05/2023 11/29/2022 Collection Time 10:27 AM 10:35 AM 10:24 AM Order Date 08/10/2024 08/05/2023 11/29/2022 White Blood Count 7.1 (Ref Range: 4.8-10.8 X10*3/uL) 7.0 (Ref Range: 4.8-10.8 X10*3/uL) 7.7 (Ref Range: 4.8-10.8 X10*3/uL) Red Blood Count 4.53 (Ref Range: 4.20-5.50 X10*6/uL) 4.38 (Ref Range: 4.20-5.50 X10*6/uL) 4.49 (Ref Range: 4.20-5.50 X10*6/uL) Hemoglobin 13.2 (Ref Range: 12.0-16.0 g/dl) 12.8 (Ref Range: 12.0-16.0 g/dl) 13.1 (Ref Range: 12.0-16.0 g/dl) Hematocrit 41.0 (Ref Range: 37.0-47.0 %) 38.5 (Ref Range: 37.0-47.0 %) 39.6 (Ref Range: 37.0-47.0 %) Mean Corpuscular Volume 90.5 (Ref Range: 80.0-98.0 fL) 87.9 (Ref Range: 80.0-98.0 fL) 88.2 (Ref Range: 80.0-98.0 fL) Mean Corpuscular Hemoglobin 29.1 (Ref Range: 27.0-33.0 pg) 29.2 (Ref Range: 27.0-33.0 pg) 29.2 (Ref Range: 27.0-33.0 pg) Mean Corpuscular HGB Conc 32.2 (Ref Range: 31.0-35.0 g/dl) 33.2 (Ref Range: 31.0-35.0 g/dl) 33.1 (Ref Range: 31.0-35.0 g/dl) Red Cell Distribution Width 13.1 (Ref Range: 11.0-16.0 %) 12.6 (Ref Range: 11.0-16.0 %) 12.7 (Ref Range: 11.0-16.0 %) Platelet Count 168 (Ref Range: 160-400 X10*3/uL) 184 (Ref Range: 160-400 X10*3/uL) 178 (Ref Range: 160-400 X10*3/uL) Mean Platelet Volume 9.8 (Ref Range: 9.4-12.3 fL) 9.6 (Ref Range: 9.4-12.3 fL) 9.4 (Ref Range: 9.4-12.3 fL) Neutrophils Percent Auto 47.2 (Ref Range: 45-73 %) 55.3 (Ref Range: 45-73 %) 54.6 (Ref Range: 45-73 %) Imm Gran Pct Auto 0.1 (Ref Range: 0.0-0.4 %) 0.3 (Ref Range: 0.0-0.4 %) 0.4 (Ref Range: 0.0-0.4 %) Lymphocytes Percent Auto 43.8?H (Ref Range: 20-40 %) 36.0 (Ref Range: 20-40 %) 37.3 (Ref Range: 20-40 %) Monocytes Percent Auto 6.5 (Ref Range: 2-11 %) 6.5 (Ref Range: 2-11 %) 6.1 (Ref Range: 2-11 %) Eosinophils Percent Auto 1.7 (Ref Range: 0-4 %) 1.3 (Ref Range: 0-4 %) 1.2 (Ref Range: 0-4 %) Basophils Percent Auto 0.7 (Ref Range: 0-2 %) 0.6 (Ref Range: 0-2 %) 0.4 (Ref Range: 0-2 %) NRBC Pct Auto 0.0 (Ref Range: 0.0-0.2 /100WBC) 0.0 (Ref Range: 0.0-0.2 /100WBC) 0.0 (Ref Range: 0.0-0.2 /100WBC) Neutrophils Absolute Auto 3.3 (Ref Range: 2.0-8.3 x10*3/uL) 3.9 (Ref Range: 2.0-8.3 x10*3/uL) 4.2 (Ref Range: 2.0-8.3 x10*3/uL) Imm Gran Abs Auto 0.01 (Ref Range: 0.00-0.03 X10*3/uL) 0.02 (Ref Range: 0.00-0.03 X10*3/uL) 0.03 (Ref Range: 0.00-0.03 X10*3/uL) Lymphocytes Absolute Auto 3.1 (Ref Range: 1.2-4.9 X10*3/uL) 2.5 (Ref Range: 1.2-4.9 X10*3/uL) 2.9 (Ref Range: 1.2-4.9 X10*3/uL) Monocytes Absolute Auto 0.5 (Ref Range: 0.1-1.2 X10*3/uL) 0.5 (Ref Range: 0.1-1.2 X10*3/uL) 0.5 (Ref Range: 0.1-1.2 X10*3/uL) Eosinophils Absolute Auto 0.1 (Ref Range: 0.0-0.4 X10*3/uL) 0.1 (Ref Range: 0.0-0.4 X10*3/uL) 0.1 (Ref Range: 0.0-0.4 X10*3/uL) Basophils Absolute Auto 0.1 (Ref Range: 0.0-0.2 X10*3/uL) 0.0 (Ref Range: 0.0-0.2 X10*3/uL) 0.0 (Ref Range: 0.0-0.2 X10*3/uL) NRBC Abs Auto 0.000 (Ref Range: 0.0-0.012 X10*3/uL) 0.000 (Ref Range: 0.0-0.012 X10*3/uL) 0.000 (Ref Range: 0.0-0.012 X10*3/uL) * Lab:Hemoglobin A1c * Collection Date 08/10/2024 08/05/2023 11/29/2022 Collection Time 10:27 AM 10:35 AM 10:24 AM Order Date 08/10/2024 08/05/2023 11/29/2022 Hemoglobin A1c % 7.7?H (Ref Range: <6.0 %) 8.1?H (Ref Range: <6.0 %) 8.1 (Ref Range: %) Estimated Average Glucose 174 (Ref Range: mg/dL) 186 (Ref Range: mg/dL) 186 (Ref Range: mg/dL) Clinical Info: Please have this testing 1 week prior to your next appointment Please fast for 12-14 hours prior to having this labwork done. You may have black coffee or tea with no milk or sugar. May have water,Please have this testing 1 week prior to your next appointment,PLEASE FAX COMPLETED RESULTS TO [phone] * Lab:Microalbumin, Random * Collection Date 08/10/2024 08/05/2023 11/29/2022 Collection Time 10:25 AM 10:34 AM 10:23 AM Order Date 08/10/2024 08/05/2023 11/29/2022 Creatinine Urine 294.39 (Ref Range: mg/dL) 279.03 (Ref Range: mg/dL) 226.45 (Ref Range: mg/dL) Microalbumin Urine 171.0 (Ref Range: mg/L) 177.0 (Ref Range: mg/L) 42.0 (Ref Range: mg/L) Microalbum Creatinine Ratio Ur 58.0?H (Ref Range: <30 ug/mg cr) 63.4?H (Ref Range: <30 ug/mg cr) 18.5 (Ref Range: ug/mg cr) Clinical Info: Please have this testing 1 week prior to your next appointment Please fast for 12-14 hours prior to having this labwork done. You may have black coffee or tea with no milk or sugar. May have water,Please have this testing 1 week prior to your next appointment,PLEASE FAX COMPLETED RESULTS TO [phone] * Examination: ???General Examination: ?GENERAL APPEARANCE:?pleasant, well nourished, well developed, in no acute distress, calm and relaxed, overweight, woman.?HEAD:?atraumatic, normocephalic.?EYES:?eomi, perrla, anicteric, conjugate.?EARS:?normal.?NOSE:?septum intact.?ORAL CAVITY:?normal, unremarkable.?NECK/THYROID:?no jugular venous distention, no carotid bruit, thyroid normal.?LYMPH NODES:?no enlarged lymph nodes,spleen normal.?SKIN:?no suspicious lesions, anicteric.?HEART:?no clicks, gallops, murmurs, or rubs, regular rhythm, S1, S2 normal, no s3, or vascular bruits.?LUNGS:?clear to auscultation .?BREASTS:?Not examined.?ABDOMEN:?bowel sounds normal, no ascites, no organomegaly, no mass, centripital obesity, centripital obesity.?RECTAL EXAM:?not examined.?MUSCULOSKELETAL:?extremities unremarkable, no clubbing, cyanosis or edema.?PERIPHERAL PULSES:?normal.?NEUROLOGIC:?alert and oriented, cranial nerves 2-12 grossly intact, deep tendon reflexes 2+ symmetrical, motor strength normal upper and lower extremities, sensory exam intact.?PSYCH:?alert, oriented, mood depressed.? : ???Ears:No wax, Hearing aids working well, Eyes: Need to see an eye doctor for potential retinopathy, Skin: Non-cancerous growth, Breasts: No lumps detected, Heart: Rhythm is slow and regular. ??? Assessment: * Assessment: 1.?Type 2 diabetes mellitus with hyperglycemia, without long-term current use of insulin - E11.65 (Primary)???Notes :Her fasting glucose is now 157.? Continue her weight loss and her hemoglobin A1c will he followed.? If her glucose remains at this level her medications will be adjusted.? She has been referred to ophthalmology for her annual diabetic eye care.???2.?Immunization not carried out because of patient refusal - Z28.21???Notes :She declined influenza vaccine today.???3.?Obesity (BMI 30.0-34.9) - E66.9???Notes :She has lost 11 pounds in her body mass index is now 31.28.? We reviewed her weight loss strategy in detail today.???4.?Mixed hyperlipidemia - E78.2???Notes :Her triglycerides continue to be elevated at 385.? Her total cholesterol is 197.She will continue to lose weight and avoid animal fat in her diet.? They fasting lipid profile will be done frequently until control is achieved.???5.?Essential hypertension - I10???Notes :Her blood pressure today is 135/80. We made a plan to lose weight and restrict sodium. No change in her medications was necessary.???6.?History of depression - Z86.59???Notes :She is not depressed today and seems happy and healthy. If this returns. She will come to the office at once.???7.?Sensorineural hearing loss (SNHL) of both ears - H90.3???Notes :Her hearing loss has been stable. Communication was best if she set directly in front of me and I spoke up. I have offered to refer her to audiology, but she has declined.??? Plan: * Treatment: ? Value Reference Range ?Triglycerides 385 H <150 - mg /dL * ?Cholesterol 197 <200 - mg/d L * ?LDL Cholesterol Calculated 84 <100 - mg/dL * ?HDL Cholesterol 36 L >40 - m g/dL ?LAB: Microalbumin, Random (Collection Date & Time - 08/10/2024 10:25 AM)* ? Value Reference Range ?Creatinine Urine 294.39 - mg/d L * ?Microalbumin Urine 171.0 - mg /L * ?Microalbum Creatinine Ratio Ur 58.0 H <30 - ug/mg cr ?LAB: Hemoglobin A1c (Collection Date & Time - 08/10/2024 10:27 AM)* ? Value Reference Range ?Hemoglobin A1c % 7.7 H <6.0 - % * ?Estimated Average Glucose 174 - mg/dL ? Referral To:[facility]??Ophthalmology ?Reason:Consult and Treat Annual Diabetic Eye Exam 2.?Obesity (BMI 30.0-34.9)?LAB: PROFILE, FASTING (COMPREHENSIVE METABOLIC) ?LAB: CBC WITH AUTO DIFF ?LAB: Lipid Panel (Collection Date & Time - 08/10/2024 10:27 AM)* ? Value Reference Range ?Triglycerides 385 H <150 - mg /dL * ?Cholesterol 197 <200 - mg/d L * ?LDL Cholesterol Calculated 84 <100 - mg/dL * ?HDL Cholesterol 36 L >40 - m g/dL ?LAB: Microalbumin, Random (Collection Date & Time - 08/10/2024 10:25 AM)* ? Value Reference Range ?Creatinine Urine 294.39 - mg/d L * ?Microalbumin Urine 171.0 - mg /L * ?Microalbum Creatinine Ratio Ur 58.0 H <30 - ug/mg cr ?LAB: Hemoglobin A1c (Collection Date & Time - 08/10/2024 10:27 AM)* ? Value Reference Range ?Hemoglobin A1c % 7.7 H <6.0 - % * ?Estimated Average Glucose 174 - mg/dL 3.?Mixed hyperlipidemia?LAB: PROFILE, FASTING (COMPREHENSIVE METABOLIC) ?LAB: CBC WITH AUTO DIFF ?LAB: Lipid Panel (Collection Date & Time - 08/10/2024 10:27 AM)* ? Value Reference Range ?Triglycerides 385 H <150 - mg /dL * ?Cholesterol 197 <200 - mg/d L * ?LDL Cholesterol Calculated 84 <100 - mg/dL * ?HDL Cholesterol 36 L >40 - m g/dL ?LAB: Microalbumin, Random (Collection Date & Time - 08/10/2024 10:25 AM)* ? Value Reference Range ?Creatinine Urine 294.39 - mg/d L * ?Microalbumin Urine 171.0 - mg /L * ?Microalbum Creatinine Ratio Ur 58.0 H <30 - ug/mg cr ?LAB: Hemoglobin A1c (Collection Date & Time - 08/10/2024 10:27 AM)* ? Value Reference Range ?Hemoglobin A1c % 7.7 H <6.0 - % * ?Estimated Average Glucose 174 - mg/dL 4.?Others? Continue Atorvastatin Calcium Tablet, 10 MG, TAKE 1 TABLET BY MOUTH EVERY DAY;?Continue FreeStyle Lite Test Strip, -, USE DIRECTED TO CHECK BLOOD SUGAR MON/WED/FRI;?Continue PioglitazoneHCl Tablet, 15 MG, TAKE 1 TABLET BY MOUTH EVERY DAY;?Continue metFORMIN HCl Tablet, 1000 MG, TAKE 1 TABLET BY MOUTH TWICE DAILY WITH MEAL;?Continue Atenolol Tablet, 25 MG, TAKE 1 TABLET BY MOUTH EVERY DAY;?Continue Trulicity Solution Pen-injector, 1.5 MG/0.5ML, as directed, Subcutaneous;?Continue FreeStyle Lite Kit, w/Device, as directed, -, to check blood sugar fasting Mon/Wed/Fri;?Continue Alcohol Pads Pad, 70 %, as directed, - , use to check Fasting blood sugar Mon/Wed/Fri;?Continue Lancets Miscellaneous, -, as directed, -, use to check Fasting blood sugar Mon/Wed/Fri;?Continue Gauze Pads Pad, 3 X3 , as directed, -, to check fasting blood sugar Mon/Wed/Fri.?? * Labs:? * ?Lab: URINE DIP STICK (C ollection Date & Time - 08/10/2024) ? Value Reference Range ?SG 1.030 1.005 - 1.025 * ?pH 5.0 5.0 - 9.0 * ?NORMA 15 Negative - * ?NIT Negative Negative - * ?PRO 15 Negative - Trac e * ?GLU Negative Negative - * ?KET Negative Negative - * ?UBG 0.2 0.1 - 1.8 * ?GREG Negative 0.2 - 1.3 * ?BLD ++ Negative - * ?Menstrating no * Procedure Codes:?02563 URINE -NO [id number] FLU IMM NO ORD/ADMIN DOC GILBERT * Preventive Medicine:? ??Counseling:?Care goal follow-up plan:?Counseling for abnormal BMI given?Yes ?Above Normal BMI Follow-up?Dietary management education, guidance, and counseling, Dietary needs education, Exercise promotion: strength training, Exercise promotion: stretching, Feeding regime, Giving encouragement to exercise, Lifestyle education regarding diet, Nutrition / feeding management, Nutrition therapy, Prescribed activity/exercise education, Prescribed diet education, Prescribed dietary intake, Special diet education, Weight monitoring , Intervention, Order not done: Medical or Other reason not done ??DM Care Plan:?Patient Lifestyle Goals?Patient wants to be able to manage diabetes without too much effort.?Treatment Goals?HbA1C < 7.0, Blood Sugars less than < 115.?Barriers?no barriers.?Self-Managment Goals?Work on weight loss, with a goal of losing 1 lb per week.? * Follow Up:?6 Months, In six months (Reason: OV, Routine check-up) * Images: * Sign off status: Completed true * Provider:?Vasiliy Hays MD Date:?07/18 Generated for Minerva pradhan/Holger/Orinitting on:?02/02/2025 08:55 AM EDT History and Physical Notes * HPI (History of Present Illness) Category Sub-Category Detail Notes Depression Screening PHQ-9 Little inte rest or pleasure in doing things: Not at all Feeling down, depressed, or hopeless: No t at all Trouble falling or staying asleep, or sl eeping too much: Several days Feeling tired or having little energy: N ot at all Poor appetite or overeating: Several day s Feeling bad about yourself o r that you are a failure, or have let yourself or your family down: Not at all Trouble concentrating on thi ngs, such as reading the newspaper or watching television: Not at all Moving or speaking so slowly that other people could have noticed; or the opposite, being so fidgety or restless that you have been moving around a lot more than usual: Not at all Thoughts that you would be b adithya off or of hurting yourself in some way: Not at all Total Score: 2 Interpretation: Minimal Depression COVID-19 Screening Questions Have you had any new onset fever, chills, cough, congestion, sore throat, shortness of breath, muscle aches?: No Have you been exposed to the virus with n the last 10 days?: No Have you travelled internationally in e last 10 days?: No Have you been exposed to COVID-19 in the past?: No SDOH Questions SDOH Questions In the past year have you been worried about losing your housing?: No In the past year have you or any family members you live with been unable to get any of the following when it was really needed? Check all that apply:: None Examination Category Sub-Category Detail Notes General Examination GENERAL APPEARANCE: pleasant , well nourished, well developed, in no acute distress, calm and relaxed, overweight, woman HEAD: atraumatic, normocep halic EYES: eomi, perrla, anicte kasia, conjugate EARS: normal NOSE: septum intact NECK/THYROID: no jugular venous di stention, no carotid bruit, thyroid normal HEART: no clicks, gallops, murmurs, or rubs, regular rhythm, S1, S2 normal, no s3, or vascular bruits LUNGS: clear to auscultatio n ABDOMEN: bowel sounds normal, no ascites, no organomegaly, no mass, centripital obesity, centripital obesity NEUROLOGIC: alert and oriented, cranial nerves 2-12 grossly intact, deep tendon reflexes 2+ symmetrical, motor strength normal upper and lower extremities, sensory exam intact SKIN: no suspicious lesion s, anicteric PERIPHERAL PULSES: normal BREASTS: Not examined MUSCULOSKELETAL: extremities unremark able, no clubbing, cyanosis or edema LYMPH NODES: no enlarged lymph no ira,spleen normal RECTAL EXAM: not examined PSYCH: alert, oriented, moo d depressed ORAL CAVITY: normal, unremarkable Consultation Request Notes Referral Date Referring Provider Referred Provider Not es 08/10/2024 Vasiliy Hays, Eyecare Consult a nd Treat Annual Diabetic Eye Exam
[2025-02-02 09:20] LABS: Basophils Absolute Auto 0.1 X10*3/uL (0.0-0.2); Basophils Percent Auto 0.6 % (0-2); Eosinophils Absolute Auto 0.1 X10*3/uL (0.0-0.4); Eosinophils Percent Auto 1.7 % (0-4); Hematocrit 35.8 % (37.0-47.0); Hemoglobin 12.1 g/dl (12.0-16.0); Imm Gran Abs Auto 0.03 X10*3/uL (0.00-0.03); Imm Gran Pct Auto 0.4 % (0.0-0.4); Lymphocytes Absolute Auto 3.3 X10*3/uL (1.2-4.9); Lymphocytes Percent Auto 42.7 % (20-40); Mean Corpuscular HGB Conc 33.8 g/dl (31.0-35.0); Mean Corpuscular Hemoglobin 29.3 pg (27.0-33.0); Mean Corpuscular Volume 86.7 fL (80.0-98.0); Mean Platelet Volume 9.6 fL (9.4-12.3); Monocytes Absolute Auto 0.5 X10*3/uL (0.1-1.2); Monocytes Percent Auto 6.4 % (2-11); Neutrophils Absolute Auto 3.7 x10*3/uL (2.0-8.3); Neutrophils Percent Auto 48.2 % (45-73); Platelet Count 183 X10*3/uL (160-400); Red Blood Count 4.13 X10*6/uL (4.20-5.50); Red Cell Distribution Width 12.9 % (11.0-16.0); White Blood Count 7.8 X10*3/uL (4.8-10.8)
[2025-02-02 09:37] LABS: Estimated Average Glucose 189 mg/dL; Hemoglobin A1C 208.0699 umol/L; Hemoglobin A1c % 8.2 % (<6.0); Total Hemoglobin (HGBA1C) 3136.3867 umol/L
[2025-02-02 10:04] LABS: Alanine Aminotransferase 26 U/L (0-31); Albumin Level 4.4 g/dL (3.5-5.0); Alkaline Phosphatase 72 U/L (39-117); Anion Gap 14 (12-20); Aspartate Amino Transferase 30 U/L (5-31); Bilirubin Total 0.6 mg/dL (0.0-1.0); Blood Urea Nitrogen 19 mg/dL (9-16); Calcium 9.4 mg/dL (8.4-10.2); Carbon Dioxide 26 mmol/L (22-29); Chloride 105 mmol/L (96-108); Cholesterol 178 mg/dL (<200); Estimated Glomerular Filt Rate > 60; Glucose Fasting 190 mg/dL (60-99); HDL Cholesterol 35 mg/dL (>40); LDL Cholesterol Calculated 77 mg/dL (<100); Potassium 4.9 mmol/L (3.3-5.1); Sodium 140 mmol/L (135-145); Total Protein 7.2 g/dL (6.5-8.0); Triglycerides 333 mg/dL (<150)
[2025-02-02 10:35] LABS: Creatinine Urine 107.98 mg/dL; Microalbum/Creatinine Ratio Ur 43.5 ug/mg cr (<30)
== END 2025-02-02 08:38 | disposition home or self-care (01) ==
LOC: HO.LAB 08:37
PROVIDERS: PCP Internal Medicine Medical Oncology; Visit Provider Internal Medicine Medical Oncology
DX: Z00.00 Encounter for general adult medical examination without abnormal findings (principal); E66.9 Obesity, unspecified; E78.2 Mixed hyperlipidemia; E11.65 Type 2 diabetes mellitus with hyperglycemia
CPT/HCPCS: 36415; 80053; 80061; 82043; 82570; 83036; 85025

== ENCOUNTER 2025-06-03 08:55 | Outpatient (REF) | payer MEDICARE, SELFPAY ==
--- OUTSIDE RECORDS SUMMARY | 2025-02-02 05:42 | XMS_ITS ---
Author Organization Vasiliy Hays III, MD Address [address] [facility] [address] Care Team Providers Care Connie Cleaner Name Role Phone Vasiliy Hays Primary Care Provider REASON FOR VISIT Update Demographics - Personal Info Social History Sex Assigned At : Social History Observation Description Sex Assigned At Female Encounters Encounter Location Date Provider Diagnosis Vasiliy Hays III, MD [address] [place] [address] [place] [address] 02/02/2025 Vasiliy Hays Plan Of Treatment Next Appt Details Provider Name:Vasiliy Hays, 06/10/2025 09:00:00 AM, [address] [place] [address] [place], [address], Provider Name:Vasiliy Hays, 08/11/2025 09:30:00 AM, [address] [place] [address] [place], [address], Progress Notes * Marci GONZALES JDOB: 0 (64 yo F)Acc No.[id number]:02/02/2025 Patient: Nicolasa PETERSONMarci :1960 A ge:64 Y S ex:Female Address:[address] [place], [place] [address], [address] * true * Date: Generated for Printi ng/Faxing/eTransmitting on: 0 06/03/2025 10:19 AM EDT
--- OUTSIDE RECORDS SUMMARY | 2025-02-02 05:42 | XMS_ITS ---
Author Organization Vasiliy Hays III, MD Address [address] [place] [address] Care Team Providers Care Manager Mining Name Role Phone Vasiliy Hays Primary Care Provider REASON FOR VISIT Update Demographics - Additional Info Social History Sex Assigned At : Social History Observation Description Sex Assigned At Female Encounters Encounter Location Date Provider Diagnosis Vasiliy Hays III, MD [address] [place] [address] [place] [address] 02/02/2025 Vasiliy Hays Plan Of Treatment Next Appt Details Provider Name:Vasiliy Hays, 06/10/2025 09:00:00 AM, [address] [place] [address] [place], [address], Provider Name:Vasiliy Hays, 08/11/2025 09:30:00 AM, [address] [place] [address] [place], [address], Progress Notes * Marci GONZALES JDOB: 0 (64 yo F)Acc No.[id number]:02/02/2025 Patient: Nicolasa PETERSONMarci :1960 A ge:64 Y S ex:Female Address:[address] [place], [place] [address], [address] * true * Date: Generated for Printi ng/Faxing/eTransmitting on: 0 06/03/2025 10:19 AM EDT
--- OUTSIDE RECORDS SUMMARY | 2025-02-09 05:00 | XMS_ITS ---
Author Organization Vasiliy Hays III, MD Address [address] [place] [address] Care Team Providers Care Traffic Manager Name Role Phone Vasiliy Hays Primary [...] directed - to check blood sugar fasting /Sat10/01/2022 Active Lancets - as directed - use [...] Problem Status W/U Status Risk Notes Problem [id number] Chronic cough (R05.3) Active confirmed She reports [...] Date Provider Diagnosis Vasiliy Hays III, MD [address] [place] [address] [place] [facility] [address] 02/09/2025 Vasiliy Hays Essential hypertensi on I10 [...] s weekly for 28 days 02/09/2025 01/11/2026 [employer] Lite w/Device as directed - to check blood sugar fasting Mon/Wed/Fri 10/01/2022 Lancets - as directed - use [...] Up: 6 Weeks, Reason: OV Provider Name:Vasiliy Hays, 06/10/2025 09:00:00 AM, [address] [place] [address] [address], [place], [address], Provider Name:Vasiliy Hays, 08/11/2025 09:30:00 AM, [address] [place] [address] [address], [place], [address], Progress Notes * CHRISTIANMarciDOB: 0 (64 yo F)Acc No.[id number]:02/09/2025 Progress Notes Patient: Marci LENTZ Provider: Jair Hays MD :1960 A ge:64 Y S ex:Female Date:02/09/2025 Address:[address] [place], [place] [id number] Subjective: * Chief Complaints: * C hronic [...] stroke, renal failure, diagnosed with HTN. S iblings: alive. M kimberly Grand Father: , diagnosed with Cancer. M [...] ggressive nonsmoker S he was born and [place], [place] and lives in [place]. 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 She is legally . She [...] your next appointment,PLEASE FAX COMPLETED RESULTS TO [phone] * Lab:Microalbumin, Random * Collection Date 02/02/2025 [...] your next appointment,PLEASE FAX COMPLETED RESULTS TO [phone] * Lab:Lipid Panel * Collection Date 02/02/2025 [...] your next appointment,PLEASE FAX COMPLETED RESULTS TO [phone] * Lab:Comprehensive Carlotta. Pane l Fast * Collection Date 02/02/2025 [...] Hays MD Date: 0 02/09/2025 Generated for Skycatchi ng/Famindyg/eTransmitting on: 0 06/03/2025 10:19 AM EDT History and Physical Notes * [...]
--- OUTSIDE RECORDS SUMMARY | 2025-03-26 05:00 | XMS_ITS ---
Author Organization Vasiliy Hays III, MD Address [address] [place] [address] Care Team Providers Care Double Backer Name Role Phone Vasiliy Hays Primary Care Provider Allergies Allergen (clinical drug ingredient) Drug/Non Drug Allergy documented on EMR Reaction Allergy Type Onset Date Status Septra Unknown Drug Allergy Active lisinopril Lisinopril Unknown Drug Allergy Activ e REASON FOR VISIT diabetes, retinal hemorrhages, hypertension, Hyperlipidemia, Hearing loss Medications Medication SIG (Take, Route, Frequency, Duration) Notes Start Date End Date Status FreeStyle Lite w/Device as directed - to check blood sugar fasting 10/01/2022 Active Alcohol Pads 70 % as directed - use to check Fasting blood sugar 10/01/2022 Active Lancets - as directed - use to check Fasting blood sugar 10/01/2022 Active Gauze Pads 3 X3 as directed - to alonzo ck fasting blood sugar 10/01/2022 Active Mounjaro 2.5 MG/0.5ML 2.5 mg Subcutaneous weekly 0 02/09/2025 Active Atenolol 25 MG TAKE 1 TABLET BY ALIYAH TH EVERY DAY Active Atorvastatin Calcium 10 MG TAKE 1 TABLET BY MOUTH EVERY DAY Active FreeStyle Lite Test - USE DIRECTED TO CHECK BLOOD SUGAR Active Trulicity 1.5 MG/0.5ML as directed Subcutaneous [...] Nonsmoker Additional Findings: Tobacco non-user Aggressive nonsmoker Vital Signs Temperature 97.9 degrees Fahrenheit 03/26/20 25 Blood pressure systolic 145 mm Hg 03/26/20 25 Blood pressure diastolic 83 mm Hg 025 Heart Rate 58 /min 03/26/2025 Height 70 in 03/26/2025 Weight 229 lbs 03/26/2025 BMI 32.85 kg/m2 03/26/2025 Encounters Encounter Location Date Provider Diagnosis Vasiliy Hays III, MD [address] [place] [address] [place] [address] 03/26/2025 Vasiliy Hays Obesity (BMI 30.0-34 .9) E66.9 ; Essential hypertension I10 ; History of depression Z86.59 ; Mixed hyperlipidemia E78.2 ; Sensorineural hearing loss (SNHL) of both ears H90.3 and Type 2 diabetes mellitus with hyperglycemia, without long-term current use of insulin E11.65 Assessments Encounter Date Diagnosis (ICD Code) Assessment Notes Treat ment Notes Treatment Clinical Notes 03/26/2025 Obesity (BMI 30.0-34.9) (ICD-10 - E66.9) She remains obese. We have discussed aggressive weight loss strategies. We made a plan to lose weight at a rate of 1 pound per week. Her hemoglobin A1c has increased.She has lost 3 pounds on Ozempic. 03/26/2025 Essential hypertension (ICD-10 - I10) Her blood pressure was recorded is elevated today. A small cuff was used on her forearm. She is going to return to the office in a couple of days to recheck his blood pressure after sodium restriction. 03/26/2025 History of depressio n (ICD-10 - Z86.59) She is not depressed today and seems happy and healthy. If this returns. She will come to the office at once. 03/26/2025 Mixed hyperlipidemia (ICD-10 - E78.2) Her triglycerides continue to be elevated at 333 down from 385.. Her total cholesterol is 178.She will continue to lose weight and avoid animal fat in her diet. They fasting lipid profile will be done frequently until control is achieved 03/26/2025 Sensorineural hearin g loss (SNHL) of both ears (ICD-10 - H90.3) Her hearing loss has been stable. Communication was best if she set directly in front of me and I spoke up. I have offered to refer her to audiology, but she has declined. 03/26/2025 Type 2 diabetes mellitus with hyperglycemia, without [...] Name Sig Start Date Stop Date Notes FreeStyle Lite w/Device as directed - to check blood sugar fasting 10/01/2022 Alcohol Pads 70 % as directed - use to check Fasting blood sugar 10/01/2022 Lancets - as directed - use to check Fasting blood sugar 10/01/2022 Gauze Pads 3 X3 as directed - to alonzo ck fasting blood sugar 10/01/2022 Mounjaro 2.5 MG/0.5ML 2.5 mg Subcutaneous weekly Atenolol 25 MG TAKE 1 TABLET BY ALIYAH TH EVERY DAY Atorvastatin Calcium 10 MG TAKE 1 TABLET BY MOUTH EVERY DAY FreeStyle Lite Test - USE DIRECTED TO CHECK BLOOD SUGAR Trulicity 1.5 MG/0.5ML as directed Subcutaneous metFORMIN HCl 1000 MG TAKE 1 TABLET BY M OUTH TWICE DAILY WITH MEAL Orally twice a day Pioglitazone HCl 15 MG TAKE 1 TABLET BY MOUTH EVERY DAY Next Appt Details Follow Up: 5 week check, [place] son: ov no tests Provider Name:Vasiliy Hays, 06/10/2025 09:00:00 AM, [address] [place] [address] [address], [place], [address], Provider Name:Vasiliy Hays, 08/11/2025 09:30:00 AM, [address] [place] [address] [address], [place], [address], Progress Notes * Marci GONZALES JDOB: 0 (64 yo F)Acc No.[id number]:03/26/2025 Progress Notes Patient: Marci LENTZ Provider: Jair Hays MD :1960 A ge:64 Y S ex:Female Date:03/26/2025 Address:[address] [place], [place] [id number] Subjective: * Chief Complaints: * D iabetesRetinal hemorrhagesHypertensionHyperlipidemiaHearing loss * HPI: C OVID-19 Screening: She returns for scheduled manageable management. Her hemoglobin A1c has increased to 8.2.? She had a diabetic eye examination at an cdl instructor recently that showed retinal hemorrhages. She is at risk for narrow angle glaucoma. He cdl instructor referred her to another physician who dilated her eyes. She is going to provide us with the name of that physician who may be an liaison engineer. Her depression is in remission. Her vital signs were stable.She has lost 3 pounds and her body mass index is 32.8.She is taking weekly Mounjaro as well as her other medications. Questions H ave you had any new [...] have been noted. G enitourinary: Frequent urination a t night. M usculoskeletal: Muscle aches d enies. P ainful joints d enies. S ciatica d enies. W eakness d enies. S kin: Itching d enies. R yobani d enies. S kin lesion(s)?denies. N eurologic: Difficulty speaking d enies. D izziness d enies.?Headache d enies. L ow back pain d enies. P sychiatric: Depressed mood d enies. * Medical History: * Surgical History: r [...] diagnosed with HTN. S iblings: alive. M atejudson Grand Father: , diagnosed with Cancer. M kimberly Grand Mother: , diagnosed with Cancer. 1 [...] ggressive nonsmoker S he was born and [place], [place] and lives in [place]. 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 She is legally . She has 3 daughters, one of whom has asthma. She has had 3 pregnancies, but no deliveries. She has a gym membership and exercises 3 times a week. * Medications: T akingPioglitazone HCl 15 MG Tablet TAKE 1 TABLET BY MOUTH EVERY DAY metFORMIN HCl 1000 MG Tablet TAKE 1 TABLET BY MOUTH TWICE DAILY WITH MEAL Orally twice a day Atenolol 25 MG Tablet TAKE 1 TABLET BY MOUTH EVERY DAY Atorvastatin Calcium 10 MG Tablet TAKE 1 TABLET BY MOUTH EVERY DAY FreeStyle Lite Test - Strip USE DIRECTED TO CHECK BLOOD SUGAR MON/SAT/FRI Trulicity 1.5 MG/0.5ML Solution Pen-injector as directed Subcutaneous FreeStyle Lite w/Device Kit as directed - to check blood sugar fasting Mon/Sat/Fri Alcohol Pads 70 % Pad as directed - use to check Fasting blood sugar Mon/Sat/Fri Lancets - Miscellaneous as directed - use to check Fasting blood sugar Mon/Sat/Fri Gauze Pads 3 X3 Pad as directed - to check fasting blood sugar Mon/Sat/Fri Mounjaro 2.5 MG/0.5ML Solution Auto-injector 2.5 mg Subcutaneous weekly , stop date 01/11/2026Medication List reviewed and reconciled with the patientTaking Pioglitazone HCl 15 MG Tablet TAKE 1 TABLET BY MOUTH EVERY DAY Taking metFORMIN HCl 1000 MG Tablet TAKE 1 TABLET BY MOUTH TWICE DAILY WITH MEAL Orally twice a day Taking Atenolol 25 MG Tablet TAKE 1 TABLET BY MOUTH EVERY DAY Taking Atorvastatin Calcium 10 MG Tablet TAKE 1 TABLET BY MOUTH EVERY DAY Taking FreeStyle Lite Test - Strip USE DIRECTED TO CHECK BLOOD SUGAR MON/SAT/SAT Taking Trulicity 1.5 MG/0.5ML Solution Pen-injector as [...] - to check fasting blood sugar Mon/Sat/Fri Taking Mounjaro 2.5 MG/0.5ML Solution Auto-injector 2.5 mg Subcutaneous weekly , stop date 01/11/2026Medication List reviewed and reconciled with the patient * Allergies: L isinopril: AllergySeptra: Allergyno[Allergies Verified] Objective: * Vitals: H t: 70, Wt: 229, BMI:32.85, BP: 145/83, HR: 58, Temp: 97.9, Wt-k.87. * P ast Orders: Lab:Hemoglobin A1c * [...] your next appointment,PLEASE FAX COMPLETED RESULTS TO [phone] * Lab:Complete Blood Count Aut o Diff [...] X10*3/uL) 0.000 (Ref Range: 0.0-0.012 X10*3/uL) * Lab:[facility]. Ermias l Fast * Collection Date 02/02/2025 08/10/2024 [...] mg/dL) 9.4 (Ref Range: 8.4-10.2 mg/dL) * Lab:Lipid Panel * Collection Date 02/02/2025 [...] your next appointment,PLEASE FAX COMPLETED RESULTS TO [phone] * Lab:Microalbumin, Random * Collection Date 02/02/2025 [...] your next appointment,PLEASE FAX COMPLETED RESULTS TO [phone] * Imaging:Diabetic Eye Exam * Performed Date 02/17/2025 08/19/2024 Order Date 02/17/2025 08/19/2024 Result: undefined undefined * Examination: G eneral Examination: GENERAL APPEARANCE: p leasant, well nourished, well developed, in no acute distress, calm and relaxed, obese, woman. HEAD: a traumatic, normocephalic. EYES: e joshua, perrla, anicteric, conjugate. EARS: N ormal anatomy with bilateral hearing loss, wearing hearing aids. NOSE: s eptum intact. [...] extremities, sensory exam intact. PSYCH: a lert, oriented, mood depressed. ? Assessment: * Assessment: 1. O besity (BMI 30.0-34.9) - E66.9 (Primary) N otes :She remains obese. We have discussed aggressive weight loss strategies. We made a plan to lose weight at a rate of 1 pound per week. Her hemoglobin A1c has increased.She has lost 3 pounds on Ozempic. 2 . E ssential hypertension - I10 N otes :Her blood pressure was recorded is elevated today. A small cuff was used on her forearm. She is going to return to the office in a couple of days to recheck his blood pressure after sodium restriction. 3 . H istory of depression - [...] be done frequently until control is achieved 5 . S ensorineural hearing loss (SNHL) of both ears - H90.3 N otes :Her hearing loss has been stable. Communication was best if she set directly in front of me and I spoke up. I have offered to refer her to audiology, but she has declined. 6 . T ype 2 diabetes mellitus with [...] without too much effort. T reatment Goals H bA1C < 7.0, Blood Sugars less than < 115. B arriers n o barriers. S elf-Managment Goals W ork on weight loss, with a goal of losing 1 lb per week. * Follow Up: 5 week check (Reason: ov no tests) * Images: * Sign off status: Completed true * Provider: Jair Hays MD Date: 0 03/26/2025 Generated for Minerva pradhan/Holger/Orinitting on: 0 06/03/2025 10:19 AM EDT History [...] conjugate EARS: Normal anatomy with bilateral hearing loss, wearing hearing aids NOSE: septum intact NECK/THYROID: [...]
--- OUTSIDE RECORDS SUMMARY | 2025-04-30 05:00 | XMS_ITS ---
Author Organization Vasiliy Hays III, MD Address [address] [place] [address] Care Team Providers Care Handhole Machine Operator Name Role Phone Vasiliy Hays Primary Care Provider Allergies Allergen (clinical drug ingredient) Drug/Non Drug Allergy documented on EMR Reaction Allergy Type Onset Date Status Septra Unknown Drug Allergy Active lisinopril Lisinopril Unknown Drug Allergy Activ e REASON FOR VISIT Diabetes, Hypertension, Obesity, Hearing loss Medications Medication SIG (Take, Route, Frequency, Duration) Notes Start Date End Date Status Alcohol Pads 70 % as directed - use to check Fasting blood sugar 10/01/2022 Active FreeStyle Lite w/Device as directed - to check blood sugar fasting 10/01/2022 Active Lancets - as directed - use to check Fasting blood sugar 10/01/2022 Active Mounjaro 2.5 MG/0.5ML 2.5 mg Subcutaneous weekly 0 02/09/2025 Active Gauze Pads 3 X3 as directed - to alonzo ck fasting blood sugar 10/01/2022 Active Trulicity 1.5 MG/0.5ML as directed Subcutaneous Active FreeStyle Lite Test - USE DIRECTED TO CHECK BLOOD SUGAR Active Pioglitazone HCl 15 MG TAKE 1 TABLET BY MOUTH EVERY DAY Active Atenolol 25 MG TAKE 1 TABLET BY ALIYAH TH EVERY DAY Active metFORMIN HCl 1000 MG TAKE 1 TABLET BY M OUTH TWICE DAILY WITH MEAL Orally twice a day Active Atorvastatin Calcium 10 MG TAKE 1 TABLET BY MOUTH EVERY DAY Active Social History Tobacco Use: Social History Observation Description Date Details (start date - stop date) Never Smoker NA - NA Sex Assigned At : Social History Observation Description Sex Assigned At Female Tobacco Control (Standard) Question Answer Notes Tobacco use: Nonsmoker Additional Findings: Tobacco non-user Aggressive nonsmoker Vital Signs Temperature 97.3 degrees Fahrenheit 04/30/20 25 Blood pressure systolic 140 mm Hg 04/30/20 25 Blood pressure diastolic 80 mm Hg 025 Heart Rate 55 /min 04/30/2025 Height 70 in 04/30/2025 Weight 230 lbs 04/30/2025 BMI 33 kg/m2 04/30/2025 Encounters Encounter Location Date Provider Diagnosis Vasiliy Hays III, MD [address] [place] [address] DR [place], [place] [phone] 04/30/2025 Vasiliy Hays Essential hypertensi on I10 ; Type 2 diabetes mellitus with hyperglycemia, without long-term current use of insulin E11.65 ; Obesity (BMI 30.0-34.9) E66.9 and Mixed hyperlipidemia E78.2 Assessments Encounter Date Diagnosis (ICD Code) Assessment Notes Treat ment Notes Treatment Clinical Notes 04/30/2025 Essential hypertension (ICD-10 - I10) Her blood pressure remains slightly elevated. She is losing weight. If this does not reduce medication will be prescribed on her next visit. 04/30/2025 Type 2 diabetes mellitus with hyperglycemia, without long-term current use of insulin (ICD-10 - E11.65) Conference of blood work with him periodically. She was continuing her same medications. 04/30/2025 Obesity (BMI 30.0-34.9) (ICD-10 - E66.9) She has lost 3 pounds since January. She continues on the medication at the same dose. 04/30/2025 Mixed hyperlipidemia (ICD-10 - E78.2) Her lipids are currently stable and no change in her medication was made today. Plan Of Treatment Medication Medication Name Sig Start Date Stop Date Notes Alcohol Pads 70 % as directed - use to check Fasting blood sugar Sat/Sat/Sat10/01/2022 FreeStyle Lite w/Device as directed - to check blood sugar fasting Sat/Sat/Sat10/01/2022 Lancets - as directed - use to check Fasting blood sugar Sat/Sat/Sat10/01/2022 Mounjaro 2.5 MG/0.5ML 2.5 mg Subcutaneous weekly Gauze Pads 3 X3 as directed - to alonzo ck fasting blood sugar 10/01/2022 Trulicity 1.5 MG/0.5ML as directed Subcutaneous FreeStyle Lite Test - USE DIRECTED TO CHECK BLOOD SUGAR Pioglitazone HCl 15 MG TAKE 1 TABLET BY MOUTH EVERY DAY Atenolol 25 MG TAKE 1 TABLET BY ALIYAH TH EVERY DAY metFORMIN HCl 1000 MG TAKE 1 TABLET BY M OUTH TWICE DAILY WITH MEAL Orally twice a day Atorvastatin Calcium 10 MG TAKE 1 TABLET BY MOUTH EVERY DAY Pending Test Test Name Order Date PROFILE, FASTING (COMPREHENSIVE METABOLI C) 04/30/2025 CBC w DIFF 04/30/2025 Lipid Panel 04/30/2025 Hemoglobin A1c 04/30/2025 Next Appt Details Follow Up: 4 Weeks, Reason: OV Provider Name:Vasiliy Hays, 06/10/2025 09:00:00 AM, [address] [place] [address] [address], [place], [phone], Provider Name:Vasiliy Hays, 08/11/2025 09:30:00 AM, [address] [place] [address] [address], [place], [phone], Progress Notes * Marci GONZALESDOB: 0 (64 yo F)Acc No.[id number]:04/30/2025 Progress Notes Patient: Nicolasa PETERSON Marci J Provider: Jair Hays MD :1960 A ge:64 Y S ex:Female Date:04/30/2025 Address:[address] [place] [id number] Subjective: * Chief Complaints: * D iabetesHypertensionObesityHearing loss * HPI: C OVID-19 Screening: S he returns for a weight check taking Mounjaro. Was begun on this drug when her hemoglobin A1c elevated to 8.2. She is wearing hearing aids and can hear well. She recently had a diabetic eye examination Showing mild glaucoma and retinopathy. He remains under the care of the certifier.She has lost 3 pounds since we began the drug. She will return in 6 weeks and continue the current medication. Questions H ave you had any new [...] diagnosed with HTN. S iblings: alive. M aternal Grand Father: , diagnosed with Cancer. Justine harris Grand Mother: , diagnosed with Cancer. 1 [...] ggressive nonsmoker S he was born and [place], [place] and lives in [place]. 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 She is legally . She has [...] - to check fasting blood sugar Mon/Wed/Fri Mounjaro 2.5 MG/0.5ML Solution Auto-injector 2.5 mg Subcutaneous weekly Atorvastatin Calcium 10 MG Tablet TAKE 1 [...] DIRECTED TO CHECK BLOOD SUGAR MON/WED/SAT Taking Trulicity 1.5 MG/0.5ML Solution Pen-injector as [...] MG/0.5ML Solution Auto-injector 2.5 mg Subcutaneous weekly Taking Atorvastatin Calcium 10 MG Tablet TAKE 1 TABLET BY MOUTH EVERY DAY Medication List reviewed and reconciled with the patient * Allergies: L isinopril: AllergySeptra: Allergyno[Allergies Verified] Objective: * Vitals: H t: 70, Wt: 230, BMI:33, BP: 140/80, HR: 55, Temp: 97.3, Wt-k.33. * P ast Orders: Lab:Hemoglobin A1c * [...] your next appointment,PLEASE FAX COMPLETED RESULTS TO [phone] * Lab:Complete Blood Count Aut o Diff [...] (Ref Range: 0.0-0.012 X10*3/uL) * Lab:[facility]. Skinnye l Fast * Collection Date 02/02/2025 08/10/2024 [...] your next appointment,PLEASE FAX COMPLETED RESULTS TO [phone] * Lab:Microalbumin, Random * Collection Date 02/02/2025 [...] your next appointment,PLEASE FAX COMPLETED RESULTS TO [phone] * Imaging:Diabetic Eye Exam * Performed Date 02/17/2025 08/19/2024 Order Date 02/17/2025 08/19/2024 Result: undefined undefined * Examination: G eneral Examination: GENERAL APPEARANCE: p leasant, well nourished, well developed, in no acute distress, calm and relaxed: obese: woman. HEAD: a traumatic, normocephalic. EYES: e joshua, perrla, anicteric, conjugate. EARS: n ormal. NOSE: s eptum intact. ORAL CAVITY: n [...] sounds normal, no ascites, no organomegaly, no mass: centripital obesity. RECTAL EXAM: n ot examined. MUSCULOSKELETAL: e xtremities unremarkable, no clubbing, cyanosis or edema. PERIPHERAL PULSES: n ormal. NEUROLOGIC: a lert and oriented, cranial nerves 2-12 grossly intact, deep tendon reflexes 2+ symmetrical, motor strength normal upper and lower extremities, sensory exam intact. PSYCH: a lert, oriented. Assessment: * Assessment: 1. T ype 2 diabetes mellitus with hyperglycemia, without long-term current use of insulin - E11.65 (Primary) N otes :Conference of blood work with him periodically. She was continuing her same medications. 2 . E ssential hypertension - I10 N otes :Her blood pressure remains slightly elevated. She is losing weight. If this does not reduce medication will be prescribed on her next visit. 3 . O jonathan (BMI 30.0-34.9) - E66.9 N otes :She has lost 3 pounds since January. She continues on the medication at the same dose. 4 . M ixed hyperlipidemia - E78.2 N otes :Her lipids are currently stable and no change in her medication was made today. Plan: * Treatment: 2. E ssential hypertension L AB: PROFILE, FASTING (COMPREHENSIVE METABOLIC) L AB: CBC w DIFF L AB: Lipid Panel L AB: Hemoglobin A1c 3. O besity (BMI 30.0-34.9) L AB: PROFILE, FASTING (COMPREHENSIVE METABOLIC) L AB: CBC w DIFF L AB: Lipid Panel L AB: Hemoglobin A1c 4. M ixed hyperlipidemia L AB: PROFILE, FASTING (COMPREHENSIVE METABOLIC) L AB: CBC w DIFF L AB: Lipid Panel L AB: Hemoglobin A1c 5. O thers Continue Atorvastatin Calcium Tablet, 10 MG, TAKE 1 TABLET BY MOUTH EVERY DAY; C ontinue Pioglitazone HCl Tablet, 15 MG, TAKE 1 TABLET BY MOUTH EVERY DAY; C ontinue metFORMIN HCl Tablet, 1000 MG, TAKE 1 TABLET BY MOUTH TWICE DAILY WITH MEAL, Orally, twice a day; C ontinue Atenolol Tablet, 25 MG, TAKE 1 TABLET BY MOUTH EVERY DAY; C ontinue FreeStyle Lite Test Strip, -, USE DIRECTED TO CHECK BLOOD SUGAR MON/WED/FRI; C ontinue Trulicity Solution Pen-injector, 1.5 MG/0.5ML, as directed, Subcutaneous; C ontinue FreeStyle Lite Kit, w/Device, as directed, -, to check blood sugar fasting Mon/Wed/Fri; C ontinue Alcohol Pads Pad, 70 %, as directed, -, use to check Fasting blood sugar Mon/Wed/Fri; C ontinue Lancets Miscellaneous, -, as directed, -, use to check Fasting blood sugar Mon/Wed/Fri; C ontinue Gauze Pads Pad, 3 X3 , as directed, -, to check fasting blood sugar Mon/Wed/Fri; C ontinue Mounjaro Solution Auto-injector, 2.5 MG/0.5ML, 2.5 mg, Subcutaneous, weekly. * Procedure Codes: * Preventive Medicine: Counseling: [...] a goal of losing 1 lb per week, Increase exercise to 3 times a week for 30 mins, Stop drinking juice and/or soda, replace with more water. * Follow Up: 4 Weeks (Reason: OV) * Images: * Sign off status: Completed true * Provider: Jair Hays MD Date: 0 04/30/2025 Generated for Minerva pradhan/Holger/Orinitting on: 0 06/03/2025 [...] developed, in no acute distress, calm and relaxed: obese: woman HEAD: atraumatic, normocep halic EYES: eomi, perrla, anicte kasia, conjugate EARS: normal NOSE: septum intact NECK/THYROID: no jugular venous di stention, no carotid bruit, thyroid normal HEART: no clicks, gallops, murmurs, or rubs, regular rhythm, S1, S2 normal, no s3, or vascular bruits LUNGS: clear to auscultatio n ABDOMEN: bowel sounds normal, no ascites, no organomegaly, no mass: centripital obesity NEUROLOGIC: alert and oriented, cranial [...]
[2025-06-03 09:16] LABS: MANUAL DIFF FLAG NO
[2025-06-03 09:30] LABS: Hematocrit 35.8 % (37.0-47.0); Hemoglobin 12.0 g/dl (12.0-16.0); Imm Gran Abs Auto 0.03 X10*3/uL (0.00-0.03); Imm Gran Pct Auto 0.4 % (0.0-0.4); Lymphocytes Absolute Auto 3.2 X10*3/uL (1.2-4.9); Mean Corpuscular HGB Conc 33.5 g/dl (31.0-35.0); Mean Corpuscular Hemoglobin 29.1 pg (27.0-33.0); Mean Corpuscular Volume 86.9 fL (80.0-98.0); NRBC Abs Auto 0.000 X10*3/uL (0.0-0.012); NRBC Pct Auto 0.0 /100WBC (0.0-0.2); Platelet Count 194 X10*3/uL (160-400); Red Blood Count 4.12 X10*6/uL (4.20-5.50); White Blood Count 7.7 X10*3/uL (4.8-10.8)
[2025-06-03 09:42] LABS: Hemoglobin A1C 208.0940 umol/L; Total Hemoglobin (HGBA1C) 3156.8877 umol/L
[2025-06-03 10:04] LABS: Alanine Aminotransferase 31 U/L (0-31); Albumin Level 4.6 g/dL (3.5-5.0); Alkaline Phosphatase 75 U/L (39-117); Anion Gap 12 (12-20); Aspartate Amino Transferase 40 U/L (5-31); Blood Urea Nitrogen 13 mg/dL (9-16); Calcium 9.3 mg/dL (8.4-10.2); Carbon Dioxide 28 mmol/L (22-29); Chloride 107 mmol/L (96-108); Cholesterol 165 mg/dL (<200); Estimated Glomerular Filt Rate > 60; HDL Cholesterol 33 mg/dL (>40); Potassium 4.9 mmol/L (3.3-5.1); Sodium 142 mmol/L (135-145); Total Protein 6.9 g/dL (6.5-8.0); Triglycerides 264 mg/dL (<150)
--- OUTSIDE RECORDS SUMMARY | 2025-06-03 10:20 | XMS_ITS | Patient Health Record ---
Author Organization Vasiliy Hays III, MD Address [address] [place] [address] Care Team Providers Care Firefighting Equipment Specialist Name Role Phone Vasiliy Hays Primary Care [...] Panel Reviewed date:08/13/2024 08:20:11 PM Interpretation: Performing Lab:[facility], [address] [phone] Notes/Report: Triglycerides 385 <150 mg/dL Desirable Triglyceride: [...] Random Reviewed date:08/13/2024 08:20:11 PM Interpretation: Performing Lab:[address] [phone] Notes/Report: Creatinine Urine 294.39 Microalbumin Urine 171.0 Microalbum/Creatinine Ratio Ur 58.0 <30 ug/mg cr Albumin/Creatinine Ratio Reference Ranges: Normal: < 30 ug/mg creatinine Microalbuminuria: 30 - 300 ug/mg creatinine Clinical Albuminuria: > 300 ug/mg creatinine Hemoglobin A1c Reviewed date:08/13/2024 08:20:11 PM Interpretation: Performing Lab:[address] [phone] Notes/Report: Hemoglobin A1c % 7.7 <6.0 % [...] average glucose, using the formula of the C6F-Pusacyl Average Glucose study (ADAG), Diabetes Care, Vol.31,#8, Apr. 2007 Complete Blood Count Auto Di ff Reviewed date:08/13/2024 08:20:11 PM Interpretation: Performing Lab:[facility], [address] [phone] Notes/Report: White Blood Count 7.1 4.8-10.8 X10*3/uL [...] 0.0-0.012 X10*3/uL CORRECTED REPORT CORRECTED REPORT [facility] [place]. Panel Fa st Reviewed date:08/13/2024 08:20:11 PM Interpretation: Performing Lab:[facility], [address] [phone] Notes/Report: Sodium 139 135-145 mmol/L Potassium 4.8 [...] REVIEW Reviewed date:08/13/2024 08:20:11 PM Interpretation: Performing Lab:[facility], [address] [place] [phone] Notes/Report: SLIDE REVIEW VERIFIED Diabetic Eye Exam Reviewed date:08/24/2024 10:14:09 AM Interpretation:undefined Performing Lab: Notes/Report: undefined Complete Blood Count Auto Di ff Reviewed date:02/02/2025 11:50:57 AM Interpretation: Performing Lab:[facility], [address] [place] [phone] Notes/Report: White Blood Count 7.8 4.8-10.8 X10*3/uL Red Blood Count 4.13 4.20-5.50 X10*6/uL Hemoglobin 12.1 12.0-16.0 g/dl Hematocrit 35.8 37.0-47.0 % Mean Corpuscular Volume 86.7 80.0-98.0 fL Mean Corpuscular Hemoglobin 29.3 27.0-33.0 pg Mean Corpuscular HGB Conc 33.8 31.0-35.0 g/dl Red Cell Distribution Width 12.9 11.0-16.0 % Platelet Count 183 160-400 X10*3/uL Mean Platelet Volume 9.6 9.4-12.3 fL Neutrophils Percent Auto 48.2 45-73 % Imm Gran Pct Auto 0.4 0.0-0.4 % Lymphocytes Percent Auto 42.7 20-40 % Monocytes Percent Auto 6.4 2-11 % Eosinophils Percent Auto 1.7 0-4 % Basophils Percent Auto 0.6 0-2 % NRBC Pct Auto 0.0 0.0-0.2 /100WBC Neutrophils Absolute Auto 3.7 2.0-8.3 x10*3/u L Imm Gran Abs Auto 0.03 0.00-0.03 X10*3/uL Lymphocytes Absolute Auto 3.3 1.2-4.9 X10*3/u L Monocytes Absolute Auto 0.5 0.1-1.2 X10*3/uL Eosinophils Absolute Auto 0.1 0.0-0.4 X10*3/u L Basophils Absolute Auto 0.1 0.0-0.2 X10*3/uL NRBC Abs Auto 0.000 0.0-0.012 X10*3/uL [facility] [place]. Panel Fa Reviewed date:02/02/2025 11:50:57 AM Interpretation: Performing Lab:[facility], [address] [place] [phone] Notes/Report: Sodium 140 135-145 mmol/L Potassium 4.9 3.3-5.1 mmol/L Chloride 105 96-108 mmol/L Carbon Dioxide 26 22-29 mmol/L Anion Gap 14 12-20 Blood Urea Nitrogen 19 9-16 mg/dL Creatinine 0.75 0.5-1.4 mg/dL Estimated Glomerular Filt Rate > 60 Chronic Kidney Disease: Estimated GFR < 60 mL/min/1.73m2 Severe Kidney Disease: Estimated GFR < 15 mL/min/1.73m2 Glucose Fasting 190 60-99 mg/dL A fasting glucose of 126 mg/dl or greater on more than one occasion is considered diagnostic of diabetes. Calcium 9.4 8.4-10.2 mg/dL Bilirubin Total 0.6 0.0-1.0 mg/dL Aspartate Amino Transferase 30 5-31 U/L Alanine Aminotransferase 26 0-31 U/L Total Protein 7.2 6.5-8.0 g/dL Albumin Level 4.4 3.5-5.0 g/dL Alkaline Phosphatase 72 39-117 U/L Lipid Panel Reviewed date:02/02/2025 11:50:57 AM Interpretation: Performing Lab:[facility], [address] [place] [phone] Notes/Report: Triglycerides 333 <150 mg/dL Desirable Triglyceride: less than 150 mg/dL Borderline High Triglyceride 150-199 mg/dL High Triglyceride: 200-499 mg/dL Very High Triglyceride: greater than or equal to 5OO mg/dL Cholesterol 178 <200 mg/dL Desirable Cholesterol: less than 200 mg/dL Borderline High Cholesterol: 200-239 mg/dL High Cholesterol: greater than 239 mg/dL LDL Cholesterol Calculated 77 <100 mg/dL Desirable LDL: less than 100 mg/dL Near Optimal/Above Optimal LDL: 110-129 mg/dL Borderline High LDL: 130-159 mg/dL High LDL: 160-189 mg/dL Very High LDL: greater than or equal to 190 mg/dL HDL Cholesterol 35 >40 mg/dL Desirable HDL: greater than 40 mg/dL Note: This HDL assay may give artificially low results in patients with liver disease. Microalbumin, Random Reviewed date:02/02/2025 11:50:57 AM Interpretation: Performing Lab:[address] [phone] Notes/Report: Creatinine Urine 107.98 Microalbumin Urine 47.0 Microalbum/Creatinine Ratio Ur 43.5 <30 ug/mg cr Albumin/Creatinine Ratio Reference Ranges: Normal: < 30 ug/mg creatinine Microalbuminuria: 30 - 300 ug/mg creatinine Clinical Albuminuria: > 300 ug/mg creatinine Hemoglobin A1c Reviewed date:02/02/2025 11:50:57 AM Interpretation: Performing Lab:[address] [phone] Notes/Report: Hemoglobin A1c % 8.2 <6.0 % Hemoglobin A1C Reference Range Adults: 4.8 - 6.0 % Non diabetic: < 6.0 % Goal: < 7.0 % Additional Action Suggested: > 8.0 % Note: Hemoglobin A1c results are invalid for patients with abnormal amounts of HbF. Blood transfusions may impact the HbA1c concentration in the patient sample. Estimated Average Glucose 189 eAG = Estimated average glucose which is %A1C expressed as average glucose, using the formula of the M1X-Imhwjdy Average Glucose study (ADAG), Diabetes Care, Vol.31,#8, Apr. 2007 Diabetic Eye Exam Reviewed date:02/17/2025 02:44:30 PM Interpretation:undefined Performing Lab: Notes/Report: undefined Complete Blood Count Auto Di ff (Not yet reviewed by provider) Interpretation: Performing Lab:[address] [phone] Notes/Report: White Blood Count 7.7 4.8-10.8 X10*3/uL Red Blood Count 4.12 4.20-5.50 X10*6/uL Hemoglobin 12.0 12.0-16.0 g/dl Hematocrit 35.8 37.0-47.0 % Mean Corpuscular Volume 86.9 80.0-98.0 fL Mean Corpuscular Hemoglobin 29.1 27.0-33.0 pg Mean Corpuscular HGB Conc 33.5 31.0-35.0 g/dl Red Cell Distribution Width 13.3 11.0-16.0 % Platelet Count 194 160-400 X10*3/uL Mean Platelet Volume 9.4 9.4-12.3 fL Neutrophils Percent Auto 49.6 45-73 % Imm Gran Pct Auto 0.4 0.0-0.4 % Lymphocytes Percent Auto 41.6 20-40 % Monocytes Percent Auto 6.3 2-11 % Eosinophils Percent Auto 1.4 0-4 % Basophils Percent Auto 0.7 0-2 % NRBC Pct Auto 0.0 0.0-0.2 /100WBC Neutrophils Absolute Auto 3.8 2.0-8.3 x10*3/u L Imm Gran Abs Auto 0.03 0.00-0.03 X10*3/uL Lymphocytes Absolute Auto 3.2 1.2-4.9 X10*3/u L Monocytes Absolute Auto 0.5 0.1-1.2 X10*3/uL Eosinophils Absolute Auto 0.1 0.0-0.4 X10*3/u L Basophils Absolute Auto 0.1 0.0-0.2 X10*3/uL NRBC Abs Auto 0.000 0.0-0.012 X10*3/uL [facility] [place]. Panel Fa st (Not yet reviewed by provider) Interpretation: Performing Lab:[facility], [address] [phone] Notes/Report: Sodium 142 135-145 mmol/L Potassium 4.9 3.3-5.1 mmol/L Chloride 107 96-108 mmol/L Carbon Dioxide 28 22-29 mmol/L Anion Gap 12 12-20 Blood Urea Nitrogen 13 9-16 mg/dL Creatinine 0.69 0.5-1.4 mg/dL Estimated Glomerular Filt Rate > 60 Chronic Kidney Disease: Estimated GFR < 60 mL/min/1.73m2 Severe Kidney Disease: Estimated GFR < 15 mL/min/1.73m2 Glucose Fasting 169 60-99 mg/dL A fasting glucose of 126 mg/dl or greater on more than one occasion is considered diagnostic of diabetes. Calcium 9.3 8.4-10.2 mg/dL Bilirubin Total 0.5 0.0-1.0 mg/dL Aspartate Amino Transferase 40 5-31 U/L Alanine Aminotransferase 31 0-31 U/L Total Protein 6.9 6.5-8.0 g/dL Albumin Level 4.6 3.5-5.0 g/dL Alkaline Phosphatase 75 39-117 U/L Lipid Panel (Not yet reviewe d by provider) Interpretation: Performing Lab:[facility], [address] [place] [phone] Notes/Report: Triglycerides 264 <150 mg/dL Desirable Triglyceride: less than 150 mg/dL Borderline High Triglyceride 150-199 mg/dL High Triglyceride: 200-499 mg/dL Very High Triglyceride: greater than or equal to 5OO mg/dL Cholesterol 165 <200 mg/dL Desirable Cholesterol: less than 200 mg/dL Borderline High Cholesterol: 200-239 mg/dL High Cholesterol: greater than 239 mg/dL LDL Cholesterol Calculated 80 <100 mg/dL Desirable LDL: less than 100 mg/dL Near Optimal/Above Optimal LDL: 110-129 mg/dL Borderline High LDL: 130-159 mg/dL High LDL: 160-189 mg/dL Very High LDL: greater than or equal to 190 mg/dL HDL Cholesterol 33 >40 mg/dL Desirable HDL: greater than 40 mg/dL Note: This HDL assay may give artificially low results in patients with liver disease. Hemoglobin A1c (Not yet revi ewed by provider) Interpretation: Performing Lab:[facility], [address] [place] [phone] Notes/Report: Hemoglobin A1c % 8.2 <6.0 % Hemoglobin A1C Reference Range Adults: 4.8 - 6.0 % Non diabetic: < 6.0 % Goal: < 7.0 % Additional Action Suggested: > 8.0 % Note: Hemoglobin A1c results are invalid for patients with abnormal amounts of HbF. Blood transfusions may impact the HbA1c concentration in the patient sample. Estimated Average Glucose 189 eAG = Estimated average glucose which is %A1C expressed as average glucose, using the formula of the I0N-Djjcxkr Average Glucose study (ADAG), Diabetes Care, Vol.31,#8, [...] Referred Provider Specialty Ophthalmolog y General Notes Shaina Patricia 08/17/2024 03:24:31 PM >Referral faxed with progress note Referral Priority Routine Referral Appointment Date 08/19/2024 Medications Medication SIG (Take, Route, Frequency, Duration) Notes Start Date End Date Status Trulicity 1.5 MG/0.5ML as directed Subcutaneous Active FreeStyle Lite Test - USE DIRECTED TO CHECK BLOOD SUGAR Active Alcohol Pads 70 % as directed - use to check Fasting blood sugar 10/01/2022 Active FreeStyle Lite w/Device as directed - to check blood sugar fasting 10/01/2022 Active Pioglitazone HCl 15 MG TAKE 1 TABLET BY MOUTH EVERY DAY Active Atorvastatin Calcium 10 MG TAKE 1 TABLET BY MOUTH EVERY DAY Active Atenolol 25 MG TAKE 1 TABLET BY ALIYAH TH EVERY DAY Active metFORMIN HCl 1000 MG TAKE 1 TABLET BY M OUTH TWICE DAILY WITH MEAL Orally twice a day Active Lancets - as directed - use to check Fasting blood sugar 10/01/2022 Active Mounjaro 2.5 MG/0.5ML 2.5 mg Subcutaneous weekly 0 02/09/2025 Active Gauze Pads 3 X3 as directed - to alonzo ck fasting blood sugar 10/01/2022 Active Social History Tobacco Use: Social History [...] Problem Status W/U Status Risk Notes Problem 83879561 Postmenopausal (Z78.0) Active confirmed She will have a bone density test periodically. Problem 251862293103748 Obesity (BMI 30.0-34.9) (E66.9) Active confirmed She has lost 3 pounds since January. She continues on the medication at the same dose. Problem [id number] Mixed hyperlipidemia (E78.2) Active confirmed Her lipids are currently stable and no change in her medication was made today. Problem 65446080 Essential hypertension (I10) Active confirmed Her blood pressure remains slightly elevated. She is losing weight. If this does not reduce medication will be prescribed on her next visit. Problem 689124737523556 Carpal tunnel syndrome of right wrist (G56.01) Active confirmed The symptoms are mild and she does not require surgery at this time. This problem and symptom. Will be followed carefully. Problem 627608093 History of depression (Z86.59) Active confirmed She is not depressed today and seems happy and healthy. If this returns. She will come to the office at once. Problem 321085887 History of rhabdomyolysis (Z87.39) Active confirmed She will be observed during hot weather for repeat episodes of this problem. Problem 957151305 Sensorineural hearing loss (SNHL) of both ears (H90.3) Active confirmed Her hearing loss has been stable. Communication was best if she set directly in front of me and I spoke up. I have offered to refer her to audiology, but she has declined. Problem 704992971 Allergy to lisinopril (Z88.8) Active confirmed She has a history of allergies to a sulfa-containi ng medication as well. Problem 42422930 Chronic cough (R05.3) Active confirmed She reports a cough has been present during the day for 4 months. Chest x-ray of been ordered. She does not appear to have an infectious process. This will be further investigated. She does not think it is allergic in nature as it began before pollen season. Problem 54111525 Type 2 diabetes mellitus with hyperglycemia, without long-term current use of insulin (E11.65) Active confirmed Conference of blood work with him periodically. She was continuing her same medications. Vital Signs Heart Rate 55 /min 04/30/2025 Temperature 97.3 degrees Fahrenheit 04/30/2025 Blood pressure diastolic 80 mm Hg 04/30/2025 Height 70 in 04/30/2025 Blood pressure systolic 140 mm Hg 04/30/2025 Weight 230 lbs 04/30/2025 BMI 33 kg/m2 04/30/2025 Encounters Encounter Location Date Provider Diagnosis Vasiliy Hays III, MD [address] [place] [address] [place] [phone] 08/10/2024 Vasiliy Hays Immunization not car ried out because of patient refusal Z28.21 ; Type 2 diabetes mellitus with hyperglycemia, without long-term current use of insulin E11.65 ; Obesity (BMI 30.0-34.9) E66.9 ; Mixed hyperlipidemia E78.2 ; Essential hypertension I10 ; History of depression Z86.59 and Sensorineural hearing loss (SNHL) of both ears H90.3 Vasiliy Hays III, MD [address] [place] [address] [place] [phone] 02/09/2025 Vasiliy Hays Essential hypertensi on I10 ; Obesity (BMI 30.0-34.9) E66.9 ; History of depression Z86.59 ; Mixed hyperlipidemia E78.2 ; Chronic cough R05.3 ; Sensorineural hearing loss (SNHL) of both ears H90.3 ; Carpal tunnel syndrome of right wrist G56.01 and Type 2 diabetes mellitus with hyperglycemia, without long-term current use of insulin E11.65 Vasiliy Hays III, MD [address] [place] [address] [place] [address] 03/26/2025 aVsiliy Hays Obesity (BMI 30.0-34 .9) E66.9 ; Essential hypertension I10 ; History of depression Z86.59 ; Mixed hyperlipidemia E78.2 ; Sensorineural hearing loss (SNHL) of both ears H90.3 and Type 2 diabetes mellitus with hyperglycemia, without long-term current use of insulin E11.65 Vasiliy Hays III, MD [address] [place] [address] [place] [phone] 04/30/2025 Vasiliy Hays Essential hypertensi on I10 ; Type 2 diabetes mellitus with hyperglycemia, without long-term current use of insulin E11.65 ; Obesity (BMI 30.0-34.9) E66.9 and Mixed hyperlipidemia E78.2 Vasiliy Hays III, MD [address] [place] [address] [place] [phone] 01/27/2025 Vasiliy Hays III, MD [address] [place] [address] [place] [phone] 02/02/2025 Vasiliy Hays III, MD [address] [place] [address] [place] [phone] 02/02/2025 Vasiliy Hays Assessments Encounter Date Diagnosis (ICD [...] ophthalmology for her annual diabetic eye care. 02/09/2025 Obesity (BMI 30.0-34.9) (ICD-10 - E66.9) She has gained 14 pounds since her last visit and now has a body mass index of 33.28. We have discussed aggressive weight loss strategies. We made a plan to lose weight at a rate of 1 pound per week. Her hemoglobin A1c has increased. 02/09/2025 Essential hypertension (ICD-10 - I10) Her blood pressure was recorded is elevated today. A small cuff was used on her forearm. She is going to return to the office in a couple of days to recheck his blood pressure after sodium restriction. 03/26/2025 Obesity (BMI 30.0-34.9) (ICD-10 - E66.9) [...] recheck his blood pressure after sodium restriction. 04/30/2025 Essential hypertension (ICD-10 - I10) Her blood pressure remains slightly elevated. She is losing weight. If this does not reduce medication will be prescribed on her next visit. 04/30/2025 Type 2 diabetes mellitus with hyperglycemia, without long-term current use of insulin (ICD-10 - E11.65) Conference of blood work with him periodically. She was continuing her same medications. 08/10/2024 Obesity (BMI 30.0-34.9) (ICD-10 - E66.9) She has lost 11 pounds in her body mass index is now 31.28. We reviewed her weight loss strategy in detail today. 02/09/2025 History of depressio n (ICD-10 - Z86.59) She is not depressed today and seems happy and healthy. If this returns. She will come to the office at once. 03/26/2025 History of depressio n (ICD-10 - Z86.59) She is not depressed today and seems happy and healthy. If this returns. She will come to the office at once. 04/30/2025 Obesity (BMI 30.0-34.9) (ICD-10 - E66.9) She has lost 3 pounds since January. She continues on the medication at the same dose. 08/10/2024 Mixed hyperlipidemia (ICD-10 - E78.2) Her triglycerides continue to be elevated at 385. Her total cholesterol is 197.She will continue to lose weight and avoid animal fat in her diet. They fasting lipid profile will be done frequently until control is achieved. 02/09/2025 Mixed hyperlipidemia (ICD-10 - E78.2) Her triglycerides continue to be elevated at 333 down from 385.. Her total cholesterol is 178.She will continue to lose weight and avoid animal fat in her diet. They fasting lipid profile will be done frequently until control is achieved 03/26/2025 Mixed hyperlipidemia (ICD-10 - E78.2) Her triglycerides continue to be elevated at 333 down from 385.. Her total cholesterol is 178.She will continue to lose weight and avoid animal fat in her diet. They fasting lipid profile will be done frequently until control is achieved 04/30/2025 Mixed hyperlipidemia (ICD-10 - E78.2) Her lipids are currently stable and no change in her medication was made today. 08/10/2024 Essential hypertension (ICD-10 - I10) Her blood pressure today is 135/80. We made a plan to lose weight and restrict sodium. No change in her medications was necessary. 02/09/2025 Chronic cough (ICD-1 0 - R05.3) She reports a cough has been present during the day for 4 months. Chest x-ray of been ordered. She does not appear to have an infectious process. This will be further investigated. She does not think it is allergic in nature as it began before pollen season. 03/26/2025 Sensorineural hearin g loss (SNHL) of both ears (ICD-10 - H90.3) Her hearing loss has been stable. Communication was best if she set directly in front of me and I spoke up. I have offered to refer her to audiology, but she has declined. 08/10/2024 History of depressio n (ICD-10 - Z86.59) She is not depressed today and seems happy and healthy. If this returns. She will come to the office at once. 02/09/2025 Sensorineural hearin g loss (SNHL) of [...] may need a change in her medication. 08/10/2024 Sensorineural hearin g loss (SNHL) of [...] change in her medication. Plan Of Treatment Pending Test Test Name Order Date PROFILE, FASTING (COMPREHENSIVE METABOLI C) 08/10/2024 PROFILE, FASTING (COMPREHENSIVE METABOLI C) 08/05/2023 PROFILE, FASTING (COMPREHENSIVE METABOLI C) 01/09/2023 PROFILE, FASTING (COMPREHENSIVE METABOLI C) 04/30/2025 HEMOGLOBIN A1C (GLYCOHEMOGLOBIN) 023 LIPID PANEL 08/05/2023 LIPID PANEL 01/09/2023 CBC w DIFF 08/05/2023 CBC w DIFF 04/30/2025 CBC w DIFF 01/09/2023 URINALYSIS (UA) 08/05/2023 URINE CULTURE 08/05/2023 CBC WITH AUTO DIFF 08/10/2024 Complete Blood Count Auto Diff [facility] [place]. Panel Fast Lipid Panel 06/03/2025 Lipid Panel 04/30/2025 Hemoglobin A1c 06/03/2025 Hemoglobin A1c 04/30/2025 Next Appt Details Provider Name:Vasiliy Colvinrne, 06/10/2025 09:00:00 AM, [address] [place] [address] [address], [place], [phone], Provider Name:Vasiliy Crandallne, 08/11/2025 09:30:00 AM, [address] [place] [address] [address], [place], [phone], Insurance Providers Payer Name Payer Address Payer Phone Subscriber Number Group Number Insured Name Patient Relationship to Insured Coverage Start Date Coverage End Date [facility] [address] [facility] [address] [facility] [place] [phone] [id number] [place] Self - patient is the insured 1 Medical (General) History Medical History History ICD Code Hyperlipidemia, unspecified hyperlipidem ia type E78.5 obesity history of depression essential hypertension nontraumatic rhabdomyolysis April 2015 [facility] last menstrual period July 2017 frequent headaches surgical repair of fractured right ankle 1994 intolerance of lisinopril, cough allergic to sulfa carpal tunnel syndrome, right wrist fracture left humerus in fall April 8 benign breast biopsies March 2017 achro[place]ordon mild sensorineural hearing loss 2016 mirena iud December 2009 mild hearing sensory neural loss by antonino ogram March 2017 subcutaneous nodules July 2015 ast menstrual period Fibrocystic disease left breast June 2021 Adult onset type 2 diabetes mellitus Surgical History Surgery Date(Month/Year) No history tooth extraction 06/2023 tooth removal X2 07/2022 left lumpectomy 06/2021 biopsy subcutaneous nodule l eft upper extremity, Dr. Ware, benign tissue 2017 benign biopsy of breast 03/2017 fracture left humerus nondisplaced, fall at home 11/2016 mariella and pins in right ankle s/p fx 1994 Hospitalization History Reason Date(Month/Year) No history
== END 2025-06-03 08:56 | disposition home or self-care (01) ==
LOC: HO.LAB 08:55
PROVIDERS: PCP Internal Medicine Medical Oncology; Visit Provider Internal Medicine Medical Oncology
DX: E11.65 Type 2 diabetes mellitus with hyperglycemia (principal); I10 Essential (primary) hypertension; E78.2 Mixed hyperlipidemia; E66.9 Obesity, unspecified
CPT/HCPCS: 36415; 80053; 80061; 83036; 85025

== ENCOUNTER 2025-06-09 07:30 | Outpatient (REF) | payer MEDICARE, SELFPAY ==
--- OUTSIDE RECORDS SUMMARY | 2025-02-02 05:42 | XMS_ITS ---
Author Organization Vasiliy Hays III, MD Address [address] [place] [address] [place] [address] Care Team Providers Care Narcotics Agent Name Role Phone Dr. Vasiliy Hays III Primary Care Provider REASON FOR VISIT Update Demographics - Additional Info Social History Sex Assigned At : Social History Observation Description Sex Assigned At Female Encounters Encounter Location Date Provider Diagnosis Vasiliy Hays III, MD [address] [place] [address] [facility] [place] [address] 02/02/2025 Vasiliy Hays Plan Of Treatment Next Appt Details Provider Name:Vasiliy Hays , 06/10/2025 09:00:00 AM, [address] [place] [address] [place], [address], Provider Name:Vasiliy Hays , 08/11/2025 09:30:00 AM, [address] [place] [address] [place], [address], Progress Notes * Marci GONZALESDOB: 0 (64 yo F)Acc No.[id number]:02/02/2025 Patient: Nicolasa PETERSONMarci :1960 A ge:64 Y S ex:Female Address:[address] [place], [place] [address], [address] * true * Date: Generated for Printi ng/Faxing/eTransmitting on: 0 06/09/2025 07:32 AM EDT
--- OUTSIDE RECORDS SUMMARY | 2025-02-02 05:42 | XMS_ITS ---
Author Organization Vasiliy Hays III, MD Address [address] [place] [address] [place] [address] Care Team Providers Care Construction Management Instructor Name Role Phone Dr. Vasiliy Hays III Primary Care Provider [phone] REASON FOR VISIT Update Demographics - Personal Info Social History Sex Assigned At : Social History Observation Description Sex Assigned At Female Encounters Encounter Location Date Provider Diagnosis Vasiliy Hays III, MD [address] [place] [address] [facility] [place] [address] 02/02/2025 Vasiliy Hays Plan Of Treatment Next Appt Details Provider Name:Vasiliy Hays , 06/10/2025 09:00:00 AM, [address] [place] [address] [place], [address], Provider Name:Vasiliy Hays , 08/11/2025 09:30:00 AM, [address] [place] [address] [place], [address], Progress Notes * Marci GONZALESDOB: 0 (64 yo F)Acc No.[id number]:02/02/2025 Patient: Nicolasa PETERSONMarci :1960 A ge:64 Y S ex:Female Address:[address] [place], [place] [address], [address] * true * Date: Generated for Printi ng/Faxing/eTransmitting on: 0 06/09/2025 07:32 AM EDT
--- OUTSIDE RECORDS SUMMARY | 2025-02-09 05:00 | XMS_ITS ---
Author Organization Vasiliy Hays III, MD Address [address] [place] [address] Care Team Providers Care Major Assembly Inspector Name Role Phone Dr. Vasiliy Hays III Primary Care Provider Allergies Allergen (clinical drug ingredient) Drug/Non Drug Allergy documented on EMR Reaction Allergy Type Onset Date Status Septra Unknown Drug Allergy Active lisinopril Lisinopril Unknown Drug Allergy Activ e REASON FOR VISIT Chronic cough for 4 months, Hypertension, Depression, Hyperlipidemia, Hearing loss, Diabetes Medications Medication SIG (Take, Route, Frequency, Duration) Notes Start Date End Date Status Mounjaro 2.5 MG/0.5ML 2.5 mg Subcutaneou s weekly for 28 days 02/09/2025 01/11/2026 Active FreeStyle Lite w/Device as directed - to check blood sugar fasting 10/01/2022 Active Lancets - as directed - use to check Fasting blood sugar 10/01/2022 Active Alcohol Pads 70 % as directed - use to check Fasting blood sugar 10/01/2022 Active Gauze Pads 3 X3 as directed - to alonzo ck fasting blood sugar 10/01/2022 Active Atenolol 25 MG TAKE 1 TABLET BY ALIYAH TH EVERY DAY Active FreeStyle Lite Test - USE DIRECTED TO CHECK BLOOD SUGAR Active Atorvastatin Calcium 10 MG TAKE 1 TABLET BY MOUTH EVERY DAY Active Trulicity 1.5 MG/0.5ML as directed Subcutaneous Active metFORMIN HCl 1000 MG TAKE 1 TABLET BY M OUTH TWICE DAILY WITH MEAL Orally twice a day Active Pioglitazone HCl 15 MG TAKE 1 TABLET BY MOUTH EVERY DAY Active Social History Tobacco Use: Social History Observation Description Date Details (start date - stop date) Never Smoker NA - NA Sex Assigned At : Social History Observation Description Sex Assigned At Female Tobacco Control (Standard) Question Answer Notes Tobacco use: Nonsmoker Additional Findings: Tobacco non-user Aggressive nonsmoker Problems Problem Type SNOMED Code ICD Code Onset Dates Problem Status W/U Status Risk Notes Problem [id number] Chronic cough (R05.3) Active confirmed She reports a cough has been present during the day for 4 months. Chest x-ray of been ordered. She does not appear to have an infectious process. This will be further investigated. She does not think it is allergic in nature as it began before pollen season. Vital Signs Temperature 97.6 degrees Fahrenheit 02/10/20 25 Blood pressure systolic 190 mm Hg 02/10/20 25 Blood pressure diastolic 90 mm Hg 025 Heart Rate 54 /min 02/09/2025 Height 70 in 02/09/2025 Weight 232 lbs 02/09/2025 BMI 33.28 kg/m2 02/09/2025 Encounters Encounter Location Date Provider Diagnosis Vasiliy Hays III, MD [address] [place] [address] [place] [address] 02/09/2025 Vasiliy Hays Essential hypertensi on I10 ; Obesity (BMI 30.0-34.9) E66.9 ; History of depression Z86.59 ; Mixed hyperlipidemia E78.2 ; Chronic cough R05.3 ; Sensorineural hearing loss (SNHL) of both ears H90.3 ; Carpal tunnel syndrome of right wrist G56.01 and Type 2 diabetes mellitus with hyperglycemia, without long-term current use of insulin E11.65 Assessments Encounter Date Diagnosis (ICD Code) Assessment Notes Treat ment Notes Treatment Clinical Notes 02/09/2025 Essential hypertension (ICD-10 - I10) Her blood pressure was recorded is elevated today. A small cuff was used on her forearm. She is going to return to the office in a couple of days to recheck his blood pressure after sodium restriction. 02/09/2025 Obesity (BMI 30.0-34.9) (ICD-10 - E66.9) She has gained 14 pounds since her last visit and now has a body mass index of 33.28. We have discussed aggressive weight loss strategies. We made a plan to lose weight at a rate of 1 pound per week. Her hemoglobin A1c has increased. 02/09/2025 History of depressio n (ICD-10 - Z86.59) She is not depressed today and seems happy and healthy. If this returns. She will come to the office at once. 02/09/2025 Mixed hyperlipidemia (ICD-10 - E78.2) Her triglycerides continue to be elevated at 333 down from 385.. Her total cholesterol is 178.She will continue to lose weight and avoid animal fat in her diet. They fasting lipid profile will be done frequently until control is achieved 02/09/2025 Chronic cough (ICD-1 0 - R05.3) She reports a cough has been present during the day for 4 months. Chest x-ray of been ordered. She does not appear to have an infectious process. This will be further investigated. She does not think it is allergic in nature as it began before pollen season. 02/09/2025 Sensorineural hearin g loss (SNHL) of both ears (ICD-10 - H90.3) Her hearing loss has been stable. Communication was best if she set directly in front of me and I spoke up. I have offered to refer her to audiology, but she has declined. 02/09/2025 Carpal tunnel syndrome of right wrist (ICD-10 - G56.01) The symptoms are mild and she does not require surgery at this time. This problem and symptom. Will be followed carefully. 02/09/2025 Type 2 diabetes mellitus with hyperglycemia, without long-term current use of insulin (ICD-10 - E11.65) Her fasting glucose is now 190. A1c has increased now being 8.2. It was 7.7. She will continue her weight loss and her hemoglobin A1c will he followed. If her glucose remains at this level her medications will be adjusted. She has been referred to ophthalmology for her annual diabetic eye care. We are going to pursue aggressive weight loss. She may need a change in her medication. Plan Of Treatment Medication Medication Name Sig Start Date Stop Date Notes Mounjaro 2.5 MG/0.5ML 2.5 mg Subcutaneou s weekly for 28 days 02/09/2025 01/11/2026 FreeStyle Lite w/Device as directed - to check blood sugar fasting 10/01/2022 Lancets - as directed - use to check Fasting blood sugar 10/01/2022 Alcohol Pads 70 % as directed - use to check Fasting blood sugar 10/01/2022 Gauze Pads 3 X3 as directed - to alonzo ck fasting blood sugar 10/01/2022 Atenolol 25 MG TAKE 1 TABLET BY ALIYAH TH EVERY DAY FreeStyle Lite Test - USE DIRECTED TO CHECK BLOOD SUGAR Atorvastatin Calcium 10 MG TAKE 1 TABLET BY MOUTH EVERY DAY Trulicity 1.5 MG/0.5ML as directed Subcutaneous metFORMIN HCl 1000 MG TAKE 1 TABLET BY M OUT TWICE DAILY WITH MEAL Orally twice a day Pioglitazone HCl 15 MG TAKE 1 TABLET BY MOUTH EVERY DAY Next Appt Details Follow Up: 6 Weeks, Reason: OV Provider Name:Vasiliy Hays , 06/10/2025 09:00:00 AM, [address] [place] [address] [address], [place], [id number], Provider Name:Vasiliy Hays , 08/11/2025 09:30:00 AM, [address] [place] [address] [address], [place], [address], Progress Notes * Marci GONZALESDOB: 0 (64 yo F)Acc No.[id number]:02/09/2025 Progress Notes Patient: Marci LENTZ Provider: Jair Hays MD :[id number] A ge:64 Y S ex:Female Date:02/09/2025 Address:[address] [place] [id number] Subjective: * Chief Complaints: * C hronic cough for 4 monthsHypertensionDepressionHyperlipidemiaHearing lossDiabetes * HPI: C OVID-19 Screening: She returns for a scheduled visit to manage her medical issues. She complains of a cough for 4 months. I have ordered a chest x-ray. Her lungs were clear today. The cough began before pollen season. She is not taking lisinopril. Her depression is minimal and her hearing loss is unchanged. She was not wearing her hearing aids today as they are being refurbished. Her diabetes has been stable. Questions H ave you had any new onset fever, chills, cough, congestion, sore throat, shortness of breath, muscle aches? N o * ROS: G eneral/Constitutional: pain o nly normal aches and pains. C hills d enies.?Fatigue a dmits. F ever d enies. E NT: Decreased hearing i n both ears. R espiratory: Cough d enies. C ardiovascular: Chest pain with exertion d enies. D yspnea on exertion?denies. S hortness of breath d enies. G astrointestinal: Constipation o ccasional. D ecreased appetite d enies. D iarrhea d enies. H eartburn d enies. N ausea d enies. R ectal bleeding d enies. V omiting d enies. H ematology: bruising d enies. p etechiae d enies. S wollen glands n one have been noted. G enitourinary: Frequent urination d enies. M usculoskeletal: Muscle aches d enies. P ainful joints d enies. S ciatica d enies. W eakness d enies. S kin: Itching d enies. R yobani d enies. S kin lesion(s)?denies. N eurologic: Difficulty speaking d enies. D izziness d enies.?Headache d enies. L ow back pain d enies. P sychiatric: Depressed mood w hich is mild. * Medical History: * Surgical History: r od and pins in right ankle s/p fx 1994fracture left humerus nondisplaced, fall at home 11/2016benign biopsy of breast 03/2017biopsy subcutaneous nodule left upper extremity, Dr. Ware, benign tissue 2016left lumpectomy 06/2021tooth removal X2 07/2022tooth extraction 06/2023No history * Hospitalization/Major Diagno stic Procedure: N o history * Family History: F ather: 72 yrs, Bladder cancer, diagnosed with HTN, Cancer. M other: 77 yrs, Seizure disorder, rheumatoid arthritis, recent stroke, renal failure, diagnosed with HTN. S ibryan: alive. M atejudson Grand Father: , diagnosed with Cancer. M atejudson Grand Mother: , diagnosed with Cancer. 1 brother(s) , 2 sister(s) - healthy. 3 daughter(s) - healthy. . One sister has adult-onset diabetes mellitus. Another sister has multiple sclerosis. A brother has hypertension. One of her siblings has a rare I disease. One of her 3 daughters has asthma. She is not aware of any family history of mental illness or substance use disorder. * Social History: T obacco Use: T obacco Control (Standard) T obacco use: N onsmoker A dditional Findings: Tobacco non-user A ggressive nonsmoker S he was born and [place], [place] and lives in [place]. 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 She is legally . She has 3 daughters, one of whom has asthma. She has had 3 pregnancies, but no deliveries. She has a gym membership and exercises 3 times a week. * Medications: T akingAtorvastatin Calcium 10 MG Tablet TAKE 1 TABLET BY MOUTH EVERY DAY FreeStyle Lite Test - Strip USE DIRECTED TO CHECK BLOOD SUGAR MON/WED/FRI Trulicity 1.5 MG/0.5ML Solution Pen-injector as directed Subcutaneous FreeStyle Lite w/Device Kit as directed - to check blood sugar fasting Mon/Wed/Fri Alcohol Pads 70 % Pad as directed - use to check Fasting blood sugar Mon/Wed/Fri Lancets - Miscellaneous as directed - use to check Fasting blood sugar Mon/Wed/Fri Gauze Pads 3 X3 Pad as directed - to check fasting blood sugar Mon/Wed/Fri Atenolol 25 MG Tablet TAKE 1 TABLET BY MOUTH EVERY DAY metFORMIN HCl 1000 MG Tablet TAKE 1 TABLET BY MOUTH TWICE DAILY WITH MEAL Orally twice a day Pioglitazone HCl 15 MG Tablet TAKE 1 TABLET BY MOUTH EVERY DAY Medication List reviewed and reconciled with the patientTaking Atorvastatin Calcium 10 MG Tablet TAKE 1 TABLET BY MOUTH EVERY DAY Taking FreeStyle Lite Test - Strip USE DIRECTED TO CHECK BLOOD SUGAR MON/WED/FRI Taking Trulicity 1.5 MG/0.5ML Solution Pen-injector as directed Subcutaneous Taking FreeStyle Lite w/Device Kit as directed - to check blood sugar fasting Mon/Wed/Fri Taking Alcohol Pads 70 % Pad as [...] TABLET BY MOUTH TWICE DAILY WITH MEAL Orally twice a day Taking Pioglitazone HCl 15 MG Tablet TAKE 1 TABLET BY MOUTH EVERY DAY Medication List reviewed and reconciled with the patient * Allergies: L isinopril: AllergySeptra: Allergyno[Allergies Verified] Objective: * Vitals: H t: 70, Wt: 232, BMI:33.28, BP: 190/90, HR: 54, Temp: 97.6, Wt-k.23. * P ast Orders: Lab:Hemoglobin A1c * Collection Date 02/02/2025 08/10/2024 08/05/2023 Collection Time 08:51 AM 10:27 AM 10:35 AM Order Date 02/02/2025 08/10/2024 08/05/2023 Hemoglobin A1c % 8.2 H (Ref Range: <6.0 %) 7.7 H (Ref Range: <6.0 %) 8.1 H (Ref Range: <6.0 %) Estimated Average Glucose 189 (Ref Range: mg/dL) 174 (Ref Range: mg/dL) 186 (Ref Range: mg/dL) Clinical Info: Please have this testing 1 week prior to your next appointment Please fast for 12-14 hours prior to having this labwork done. You may have black coffee or tea with no milk or sugar. May have water,Please have this testing 1 week prior to your next appointment,PLEASE FAX COMPLETED RESULTS TO [phone] * Lab:Microalbumin, Random * Collection Date 02/02/2025 08/10/2024 08/05/2023 Collection Time 08:46 AM 10:25 AM 10:34 AM Order Date 02/02/2025 08/10/2024 08/05/2023 Creatinine Urine 107.98 (Ref Range: mg/dL) 294.39 (Ref Range: mg/dL) 279.03 (Ref Range: mg/dL) Microalbumin Urine 47.0 (Ref Range: mg/L) 171.0 (Ref Range: mg/L) 177.0 (Ref Range: mg/L) Microalbum Creatinine Ratio Ur 43.5 H (Ref Range: <30 ug/mg cr) 58.0 H (Ref Range: <30 ug/mg cr) 63.4 H (Ref Range: <30 ug/mg cr) Clinical Info: Please have this testing 1 week prior to your next appointment Please fast for 12-14 hours prior to having this labwork done. You may have black coffee or tea with no milk or sugar. May have water,Please have this testing 1 week prior to your next appointment,PLEASE FAX COMPLETED RESULTS TO [phone] * Lab:Lipid Panel * Collection Date 02/02/2025 08/10/2024 08/05/2023 Collection Time 08:51 AM 10:27 AM 10:35 AM Order Date 02/02/2025 08/10/2024 08/05/2023 Triglycerides 333 H (Ref Range: <150 mg/dL) 385 H (Ref Range: <150 mg/dL) 300 H (Ref Range: <150 mg/dL) Cholesterol 178 (Ref Range: <200 mg/dL) 197 (Ref Range: <200 mg/dL) 180 (Ref Range: <200 mg/dL) LDL Cholesterol Calculated 77 (Ref Range: <100 mg/dL) 84 (Ref Range: <100 mg/dL) 82 (Ref Range: <100 mg/dL) HDL Cholesterol 35 L (Ref Range: >40 mg/dL) 36 L (Ref Range: >40 mg/dL) 38 L (Ref Range: >40 mg/dL) Clinical Info: Please have this testing 1 week prior to your next appointment Please fast for 12-14 hours prior to having this labwork done. You may have black coffee or tea with no milk or sugar. May have water,Please have this testing 1 week prior to your next appointment,PLEASE FAX COMPLETED RESULTS TO [phone] * Lab:Comprehensive [place]. Pane l Fast * Collection Date 02/02/2025 08/10/2024 08/05/2023 Collection Time 08:51 AM 10:27 AM 10:35 AM Order Date 02/02/2025 08/10/2024 08/05/2023 Sodium 140 (Ref Range: 135-145 mmol/L) 139 (Ref Range: 135-145 mmol/L) 139 (Ref Range: 135-145 mmol/L) Bilirubin Total 0.6 (Ref Range: 0.0-1.0 mg/dL) 0.6 (Ref Range: 0.0-1.0 mg/dL) 0.6 (Ref Range: 0.0-1.0 mg/dL) Aspartate Amino Transferase 30 (Ref Range: 5-31 U/L) 35 H (Ref Range: 5-31 U/L) 36 H (Ref Range: 5-31 U/L) Alanine Aminotransferase 26 (Ref Range: 0-31 U/L) 28 (Ref Range: 0-31 U/L) 23 (Ref Range: 0-31 U/L) Total Protein 7.2 (Ref Range: 6.5-8.0 g/dL) 7.7 (Ref Range: 6.5-8.0 g/dL) 7.5 (Ref Range: 6.5-8.0 g/dL) Albumin Level 4.4 (Ref Range: 3.5-5.0 g/dL) 4.5 (Ref Range: 3.5-5.0 g/dL) 4.5 (Ref Range: 3.5-5.0 g/dL) Alkaline Phosphatase 72 (Ref Range: 39-117 U/L) 95 (Ref Range: 39-117 U/L) 73 (Ref Range: 39-117 U/L) Potassium 4.9 (Ref Range: 3.3-5.1 mmol/L) 4.8 (Ref Range: 3.3-5.1 mmol/L) 4.5 (Ref Range: 3.3-5.1 mmol/L) Chloride 105 (Ref Range: 96-108 mmol/L) 106 (Ref Range: 96-108 mmol/L) 106 (Ref Range: 96-108 mmol/L) Carbon Dioxide 26 (Ref Range: 22-29 mmol/L) 24 (Ref Range: 22-29 mmol/L) 25 (Ref Range: 22-29 mmol/L) Anion Gap 14 (Ref Range: 12-20) 14 (Ref Range: 12-20) 13 (Ref Range: 12-20) Blood Urea Nitrogen 19 H (Ref Range: 9-16 mg/dL) 14 (Ref Range: 9-16 mg/dL) 13 (Ref Range: 9-16 mg/dL) Creatinine 0.75 (Ref Range: 0.5-1.4 mg/dL) 0.74 (Ref Range: 0.5-1.4 mg/dL) 0.75 (Ref Range: 0.5-1.4 mg/dL) Estimated Glomerular Filt Rate > 60 > 60 > 60 Glucose Fasting 190 H (Ref Range: 60-99 mg/dL) 157 H (Ref Range: 60-99 mg/dL) 201 H (Ref Range: 60-99 mg/dL) Calcium 9.4 (Ref Range: 8.4-10.2 mg/dL) 9.9 (Ref Range: 8.4-10.2 mg/dL) 9.4 (Ref Range: 8.4-10.2 mg/dL) * Lab:Complete Blood Count Aut o Diff * Collection Date 02/02/2025 08/10/2024 08/05/2023 Collection Time 08:51 AM 10:27 AM 10:35 AM Order Date 02/02/2025 08/10/2024 08/05/2023 White Blood Count 7.8 (Ref Range: 4.8-10.8 X10*3/uL) 7.1 (Ref Range: 4.8-10.8 X10*3/uL) 7.0 (Ref Range: 4.8-10.8 X10*3/uL) Red Blood Count 4.13 L (Ref Range: 4.20-5.50 X10*6/uL) 4.53 (Ref Range: 4.20-5.50 X10*6/uL) 4.38 (Ref Range: 4.20-5.50 X10*6/uL) Hemoglobin 12.1 (Ref Range: 12.0-16.0 g/dl) 13.2 (Ref Range: 12.0-16.0 g/dl) 12.8 (Ref Range: 12.0-16.0 g/dl) Hematocrit 35.8 L (Ref Range: 37.0-47.0 %) 41.0 (Ref Range: 37.0-47.0 %) 38.5 (Ref Range: 37.0-47.0 %) Mean Corpuscular Volume 86.7 (Ref Range: 80.0-98.0 fL) 90.5 (Ref Range: 80.0-98.0 fL) 87.9 (Ref Range: 80.0-98.0 fL) Mean Corpuscular Hemoglobin 29.3 (Ref Range: 27.0-33.0 pg) 29.1 (Ref Range: 27.0-33.0 pg) 29.2 (Ref Range: 27.0-33.0 pg) Mean Corpuscular HGB Conc 33.8 (Ref Range: 31.0-35.0 g/dl) 32.2 (Ref Range: 31.0-35.0 g/dl) 33.2 (Ref Range: 31.0-35.0 g/dl) Red Cell Distribution Width 12.9 (Ref Range: 11.0-16.0 %) 13.1 (Ref Range: 11.0-16.0 %) 12.6 (Ref Range: 11.0-16.0 %) Platelet Count 183 (Ref Range: 160-400 X10*3/uL) 168 (Ref Range: 160-400 X10*3/uL) 184 (Ref Range: 160-400 X10*3/uL) Mean Platelet Volume 9.6 (Ref Range: 9.4-12.3 fL) 9.8 (Ref Range: 9.4-12.3 fL) 9.6 (Ref Range: 9.4-12.3 fL) Neutrophils Percent Auto 48.2 (Ref Range: 45-73 %) 47.2 (Ref Range: 45-73 %) 55.3 (Ref Range: 45-73 %) Imm Gran Pct Auto 0.4 (Ref Range: 0.0-0.4 %) 0.1 (Ref Range: 0.0-0.4 %) 0.3 (Ref Range: 0.0-0.4 %) Lymphocytes Percent Auto 42.7 H (Ref Range: 20-40 %) 43.8 H (Ref Range: 20-40 %) 36.0 (Ref Range: 20-40 %) Monocytes Percent Auto 6.4 (Ref Range: 2-11 %) 6.5 (Ref Range: 2-11 %) 6.5 (Ref Range: 2-11 %) Eosinophils Percent Auto 1.7 (Ref Range: 0-4 %) 1.7 (Ref Range: 0-4 %) 1.3 (Ref Range: 0-4 %) Basophils Percent Auto 0.6 (Ref Range: 0-2 %) 0.7 (Ref Range: 0-2 %) 0.6 (Ref Range: 0-2 %) NRBC Pct Auto 0.0 (Ref Range: 0.0-0.2 /100WBC) 0.0 (Ref Range: 0.0-0.2 /100WBC) 0.0 (Ref Range: 0.0-0.2 /100WBC) Neutrophils Absolute Auto 3.7 (Ref Range: 2.0-8.3 x10*3/uL) 3.3 (Ref Range: 2.0-8.3 x10*3/uL) 3.9 (Ref Range: 2.0-8.3 x10*3/uL) Imm Gran Abs Auto 0.03 (Ref Range: 0.00-0.03 X10*3/uL) 0.01 (Ref Range: 0.00-0.03 X10*3/uL) 0.02 (Ref Range: 0.00-0.03 X10*3/uL) Lymphocytes Absolute Auto 3.3 (Ref Range: 1.2-4.9 X10*3/uL) 3.1 (Ref Range: 1.2-4.9 X10*3/uL) 2.5 (Ref Range: 1.2-4.9 X10*3/uL) Monocytes Absolute Auto 0.5 (Ref Range: 0.1-1.2 X10*3/uL) 0.5 (Ref Range: 0.1-1.2 X10*3/uL) 0.5 (Ref Range: 0.1-1.2 X10*3/uL) Eosinophils Absolute Auto 0.1 (Ref Range: 0.0-0.4 X10*3/uL) 0.1 (Ref Range: 0.0-0.4 X10*3/uL) 0.1 (Ref Range: 0.0-0.4 X10*3/uL) Basophils Absolute Auto 0.1 (Ref Range: 0.0-0.2 X10*3/uL) 0.1 (Ref Range: 0.0-0.2 X10*3/uL) 0.0 (Ref Range: 0.0-0.2 X10*3/uL) NRBC Abs Auto 0.000 (Ref Range: 0.0-0.012 X10*3/uL) 0.000 (Ref Range: 0.0-0.012 X10*3/uL) 0.000 (Ref Range: 0.0-0.012 X10*3/uL) * Examination: G eneral Examination: GENERAL APPEARANCE: p leasant, well nourished, well developed, in no acute distress, calm and relaxed, obese, woman. HEAD: a traumatic, normocephalic. EYES: e joshua, perrla, anicteric, conjugate. EARS: N ormal anatomy with bilateral hearing loss not wearing hearing aids. NOSE: s eptum intact. ORAL CAVITY: n ormal, unremarkable. NECK/THYROID: n o jugular venous distention, no carotid bruit, thyroid normal. LYMPH NODES: n o enlarged lymph nodes,spleen normal. SKIN: n o suspicious lesions, anicteric. HEART: n o clicks, gallops, murmurs, or rubs, regular rhythm, S1, S2 normal, no s3, or vascular bruits. LUNGS: c lear to auscultation . BREASTS: N ot examined. ABDOMEN: b owel sounds normal, no ascites, no organomegaly, no mass, centripital obesity. RECTAL EXAM: n ot examined. MUSCULOSKELETAL: e xtremities unremarkable, no clubbing, cyanosis or edema. PERIPHERAL PULSES: n ormal. NEUROLOGIC: a lert and oriented, cranial nerves 2-12 grossly intact, deep tendon reflexes 2+ symmetrical, motor strength normal upper and lower extremities, sensory exam intact. PSYCH: a lert, oriented. Assessment: * Assessment: 1. E ssential hypertension - I10 (Primary) N otes :Her blood pressure was recorded is elevated today. A small cuff was used on her forearm. She is going to return to the office in a couple of days to recheck his blood pressure after sodium restriction. 2 . O besity (BMI 30.0-34.9) - E66.9 N otes :She has gained 14 pounds since her last visit and now has a body mass index of 33.28. We have discussed aggressive weight loss strategies. We made a plan to lose weight at a rate of 1 pound per week. Her hemoglobin A1c has increased. 3 . H istory of depression - Z86.59 N otes :She is not depressed today and seems happy and healthy. If this returns. She will come to the office at once. 4 . M ixed hyperlipidemia - E78.2 N otes :Her triglycerides continue to be elevated at 333 down from 385.. Her total cholesterol is 178.She will continue to lose weight and avoid animal fat in her diet. They fasting lipid profile will be done frequently until control is achieved 5. C hronic cough - R05.3 N otes :She reports a cough has been present during the day for 4 months. Chest x-ray of been ordered. She does not appear to have an infectious process. This will be further investigated. She does not think it is allergic in nature as it began before pollen season. 6 . S ensorineural hearing loss (SNHL) of both ears - H90.3 N otes :Her hearing loss has been stable. Communication was best if she set directly in front of me and I spoke up. I have offered to refer her to audiology, but she has declined. 7 . C arpal tunnel syndrome of right wrist - G56.01 N otes :The symptoms are mild and she does not require surgery at this time. This problem and symptom. Will be followed carefully. 8 . T ype 2 diabetes mellitus with hyperglycemia, without long-term current use of insulin - E11.65 N otes :Her fasting glucose is now 190. A1c has increased now being 8.2. It was 7.7. She will continue her weight loss and her hemoglobin A1c will he followed. If her glucose remains at this level her medications will be adjusted. She has been referred to ophthalmology for her annual diabetic eye care. We are going to pursue aggressive weight loss. She may need a change in her medication. Plan: * Treatment: * Procedure Codes: * Preventive Medicine: Counseling: C are goal follow-up plan: Counseling for abnormal BMI given Y es Above Normal BMI Follow-up D ietary management education, guidance, and counseling, Dietary needs education, Exercise promotion: strength training, Exercise promotion: stretching, Feeding regime, Giving encouragement to exercise, Lifestyle education regarding diet, Nutrition / feeding management, Nutrition therapy, Prescribed activity/exercise education, Prescribed diet education, Prescribed dietary intake, Special diet education, Weight monitoring , Intervention, Order not done: Medical or Other reason not done DM Care Plan: P atient Lifestyle Goals P atient wants to be able to manage diabetes without too much effort. T reatment Goals B lood Sugars less than < 115, HbA1C < 7.0. B arriers n o barriers. S elf-Managment Goals W ork on weight loss, with a goal of losing 1 lb per week. * Follow Up: 6 Weeks (Reason: OV) * Images: * Sign off status: Completed true * Provider: Jair Hays MD Date: 0 02/09/2025 Generated for Beboi carolynn/Holger/Erinsmitting on: 0 06/09/2025 07:32 AM EDT History and Physical Notes * HPI (History of Present Illness) Category Sub-Category Detail Notes COVID-19 Screening Questions Have you had any new onset fever, chills, cough, congestion, sore throat, shortness of breath, muscle aches?: No Examination Category Sub-Category Detail Notes General Examination GENERAL APPEARANCE: pleasant , well nourished, well developed, in no acute distress, calm and relaxed, obese, woman HEAD: atraumatic, normocep halic EYES: eomi, perrla, anicte kasia, conjugate EARS: Normal anatomy with bilateral hearing loss not wearing hearing aids NOSE: septum intact NECK/THYROID: no jugular venous di stention, no carotid bruit, thyroid normal HEART: no clicks, gallops, murmurs, or rubs, regular rhythm, S1, S2 normal, no s3, or vascular bruits LUNGS: clear to auscultatio n ABDOMEN: bowel sounds normal, no ascites, no organomegaly, no mass, centripital obesity NEUROLOGIC: alert and oriented, cranial nerves 2-12 grossly intact, deep tendon reflexes 2+ symmetrical, motor strength normal upper and lower extremities, sensory exam intact SKIN: no suspicious lesion s, anicteric PERIPHERAL PULSES: normal BREASTS: Not examined MUSCULOSKELETAL: extremities unremark able, no clubbing, cyanosis or edema LYMPH NODES: no enlarged lymph no ira,spleen normal RECTAL EXAM: not examined PSYCH: alert, oriented ORAL CAVITY: normal, unremarkable
--- OUTSIDE RECORDS SUMMARY | 2025-03-26 05:00 | XMS_ITS ---
Author Organization Vasiliy Hays III, MD Address [address] [place] [address] Care Team Providers Care Bulk Pigment Reducer Name Role Phone Dr. Vasiliy Hays III [...] Date Provider Diagnosis Vasiliy Hays III, MD [address] [place] [address] [place] [address] 03/26/2025 Vasiliy Hays Obesity (BMI 30.0-34 .9) [...] Appt Details Follow Up: 5 week check, [place] son: ov no tests Provider Name:Vasiliy Hays , 06/10/2025 09:00:00 AM, [address] [place] [address] [address], [place], [address], Provider Name:Vasiliy Hays , 08/11/2025 09:30:00 AM, [address] [place] [address] [address], [place], [address], Progress Notes * Marci GONZALESDOB: 0 (64 yo F)Acc No.[id number]:03/26/2025 Progress Notes Patient: Marci LENTZ Provider: Jair Hays MD :1960 A ge:64 Y S ex:Female Date:03/26/2025 Address:[address] [place] [address], [id number] Subjective: * Chief Complaints: * D iabetesRetinal hemorrhagesHypertensionHyperlipidemiaHearing loss * HPI: C OVID-19 Screening: She returns for scheduled manageable management. Her hemoglobin A1c has increased to 8.2.? She had a diabetic eye examination at an ship carpenter recently that showed retinal hemorrhages. She is at risk for narrow angle glaucoma. He ship carpenter referred her to another physician who dilated her eyes. She is going to provide us with the name of that physician who may be an business machines teacher. Her depression is in remission. Her vital [...] ggressive nonsmoker S he was born and [place], [place] and lives in [place]. 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 She [...] Strip USE DIRECTED TO CHECK BLOOD SUGAR SAT/SAT/SAT Taking Trulicity 1.5 MG/0.5ML Solution Pen-injector as directed Subcutaneous Taking FreeStyle Lite w/Device Kit as directed - to check blood sugar fasting Sat/Sat/Sat Taking Alcohol Pads 70 % Pad as directed - use to check Fasting blood sugar Sat/Sat/Sat Taking Lancets - Miscellaneous as directed - use to check Fasting blood sugar Sat/Sat/Sat Taking Gauze Pads 3 X3 Pad as directed - to check fasting blood sugar Mon/Sat/Sat Taking Mounjaro 2.5 MG/0.5ML Solution Auto-injector 2.5 [...] your next appointment,PLEASE FAX COMPLETED RESULTS TO [phone] * Lab:Complete Blood Count Aut o Diff [...] your next appointment,PLEASE FAX COMPLETED RESULTS TO [phone] * Lab:Microalbumin, Random * Collection Date 02/02/2025 [...] your next appointment,PLEASE FAX COMPLETED RESULTS TO [phone] * Imaging:Diabetic Eye Exam * Performed Date [...] 0 03/26/2025 Generated for Minerva pradhan/Holger/Orinitting on: 06/09/2025 07:33 AM EDT History and Physical Notes * [...]
--- OUTSIDE RECORDS SUMMARY | 2025-04-30 05:00 | XMS_ITS ---
Author Organization Vasiliy Hays III, MD Address [address] [place] [address] Care Team Providers Care Procurement Buyer Name Role Phone Dr. Vasiliy Hays III [...] Date Provider Diagnosis Vasiliy Hays III, MD [address] [place] [address] [address], [place] [phone] 04/30/2025 Vasiliy Hays Essential hypertensi on I10 [...] Up: 4 Weeks, Reason: OV Provider Name:Vasiliy Hays , 06/10/2025 09:00:00 AM, [address] [place] [address] [address], [place], [phone], Provider Name:Vasiliy Hays , 08/11/2025 09:30:00 AM, [address] [place] [address] [address], [place], [phone], Progress Notes * Marci GONZALESDOB: 0 (64 yo F)Acc No.[id number]:04/30/2025 Progress Notes Patient: Marci LENTZ Preet Provider: Jair Hays MD :1960 A ge:64 Y S ex:Female Date:04/30/2025 Address:[address] [place] [phone] Subjective: * Chief Complaints: * D iabetesHypertensionObesityHearing loss * HPI: C OVID-19 Screening: S he returns for a weight check taking Mounjaro. Was begun on this drug when her hemoglobin A1c elevated to 8.2. She is wearing hearing aids and can hear well. She recently had a diabetic eye examination Showing mild glaucoma and retinopathy. He remains under the care of the ornamental machine operator.She has lost 3 pounds since we began [...] ggressive nonsmoker S he was born and [place], [place] and lives in [place]. 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 She is legally . She [...] directed - to check blood sugar fasting Mon/Wed/Sat Taking Alcohol Pads 70 % Pad as directed - use to check Fasting blood sugar Mon/Sat/Fri Taking Lancets - Miscellaneous as directed - [...] your next appointment,PLEASE FAX COMPLETED RESULTS TO [phone] * Lab:Complete Blood Count Aut o Diff [...] your next appointment,PLEASE FAX COMPLETED RESULTS TO [phone] * Lab:Microalbumin, Random * Collection Date 02/02/2025 [...] your next appointment,PLEASE FAX COMPLETED RESULTS TO [phone] * Imaging:Diabetic Eye Exam * Performed Date [...] on her next visit. 3 . O besity (BMI 30.0-34.9) - E66.9 [...] 04/30/2025 Generated for Minerva pradhan/Holger/Orinitting on: 0 06/09/2025 07:32 AM EDT History [...]
--- NOTE | ~2025-06-09 | MM_ITS ---
EXAMINATION: MM SCREENING DIGITAL BREAST TOMOSYNTHESIS, BILATERAL CLINICAL INFORMATION: Screening. Asymptomatic. COMPARISON: Comparison made to multiple prior, most recent May 27, 2024, and most remote May 05, 2020. TECHNIQUE: Digital breast tomosynthesis is performed in mediolateral oblique and craniocaudal views along with computer-aided detection (CAD). Synthesized 2D images are generated from the tomosynthesis. FINDINGS: BREAST COMPOSITION: There are scattered areas of fibroglandular density. RIGHT BREAST: No significant masses, suspicious calcifications or other abnormalities are seen. LEFT BREAST: History of previous excisional biopsy. No significant masses, suspicious calcifications or other abnormalities are seen. MM/MM tomosynthesis screening BI IMPRESSION: BILATERAL BREASTS: Benign, no mammographic evidence of malignancy. Normal interval follow-up is recommended in 12 months. ASSESSMENT: BI-RADS: Category 2: Benign RECOMMENDATION: Routine annual mammography screening. FOLLOW-UP: 1 year F/U This examination should not preclude the clinical evaluation of a suspicious palpable abnormality. This patient's information was entered into a reminder system with a target due date for their next mammogram. Electronically signed by: Lili Peters MD 06/11/2025 02:13 PM EDT
--- OUTSIDE RECORDS SUMMARY | 2025-06-09 07:33 | XMS_ITS | Patient Health Record ---
Author Organization Vasiliy Hays III, MD Address [address] [place] [address] Care Team Providers Care Java Lead Architect Name Role Phone Dr. Vasiliy Hays III Primary Care Provider [phone] Allergies Allergen (clinical drug ingredient) Drug/Non Drug [...] Panel Reviewed date:08/13/2024 08:20:11 PM Interpretation: Performing Lab:[facility], [address] [place] [phone] Notes/Report: Triglycerides 385 <150 mg/dL Desirable Triglyceride: [...] Random Reviewed date:08/13/2024 08:20:11 PM Interpretation: Performing Lab:[address] [phone] Notes/Report: Creatinine Urine 294.39 Microalbumin Urine 171.0 Microalbum/Creatinine Ratio Ur 58.0 <30 ug/mg cr Albumin/Creatinine Ratio Reference Ranges: Normal: < 30 ug/mg creatinine Microalbuminuria: 30 - 300 ug/mg creatinine Clinical Albuminuria: > 300 ug/mg creatinine Hemoglobin A1c Reviewed date:08/13/2024 08:20:11 PM Interpretation: Performing Lab:[address] [phone] Notes/Report: Hemoglobin A1c % 7.7 <6.0 % [...] average glucose, using the formula of the [id number]-[id number] Average Glucose study (ADAG), Diabetes Care, Vol.31,#8, Apr. 2007 Complete Blood Count Auto Di ff Reviewed date:08/13/2024 08:20:11 PM Interpretation: Performing Lab:[facility], [address] [place] [phone] Notes/Report: White Blood Count 7.1 4.8-10.8 X10*3/uL [...] 0.0-0.012 X10*3/uL CORRECTED REPORT CORRECTED REPORT Comprehensive Andrew. Panel Fa st Reviewed date:08/13/2024 08:20:11 PM Interpretation: Performing Lab:[facility], [address] [place] [phone] Notes/Report: Sodium 139 135-145 mmol/L Potassium 4.8 [...] REVIEW Reviewed date:08/13/2024 08:20:11 PM Interpretation: Performing Lab:[facility], [address] [place] [phone] Notes/Report: SLIDE REVIEW VERIFIED Diabetic Eye Exam Reviewed date:08/24/2024 10:14:09 AM Interpretation:undefined Performing Lab: Notes/Report: undefined Complete Blood Count Auto Di ff Reviewed date:02/02/2025 11:50:57 AM Interpretation: Performing Lab:[facility], [address] [place] [phone] Notes/Report: White Blood Count 7.8 4.8-10.8 X10*3/uL [...] NRBC Abs Auto 0.000 0.0-0.012 X10*3/uL Comprehensive Andrew. Panel Fa Reviewed date:02/02/2025 11:50:57 AM Interpretation: Performing Lab:[facility], [address] [place] [phone] Notes/Report: Sodium 140 135-145 mmol/L Potassium 4.9 [...] Panel Reviewed date:02/02/2025 11:50:57 AM Interpretation: Performing Lab:[facility], [address] [place] [phone] Notes/Report: Triglycerides 333 <150 mg/dL Desirable Triglyceride: [...] Random Reviewed date:02/02/2025 11:50:57 AM Interpretation: Performing Lab:[address] [phone] Notes/Report: Creatinine Urine 107.98 Microalbumin Urine 47.0 Microalbum/Creatinine Ratio Ur 43.5 <30 ug/mg cr Albumin/Creatinine Ratio Reference Ranges: Normal: < 30 ug/mg creatinine Microalbuminuria: 30 - 300 ug/mg creatinine Clinical Albuminuria: > 300 ug/mg creatinine Hemoglobin A1c Reviewed date:02/02/2025 11:50:57 AM Interpretation: Performing Lab:[address] [address] Notes/Report: Hemoglobin A1c % 8.2 <6.0 % [...] average glucose, using the formula of the J9E-Luaivcp Average Glucose study (ADAG), Diabetes Care, Vol.31,#8, Apr. 2007 Diabetic Eye Exam Reviewed date:02/17/2025 02:44:30 PM Interpretation:undefined Performing Lab: Notes/Report: undefined Complete Blood Count Auto Di ff Reviewed date:06/06/2025 01:16:30 PM Interpretation: Performing Lab:[address] [address] Notes/Report: White Blood Count 7.7 4.8-10.8 X10*3/uL [...] NRBC Abs Auto 0.000 0.0-0.012 X10*3/uL Comprehensive Andrew. Panel Fa st Reviewed date:06/06/2025 01:16:30 PM Interpretation: Performing Lab:[facility], [address] [place] [phone] Notes/Report: Sodium 142 135-145 mmol/L Potassium 4.9 [...] Alkaline Phosphatase 75 39-117 U/L Lipid Panel Reviewed date:06/06/2025 01:16:30 PM Interpretation: Performing Lab:[address] [phone] Notes/Report: Triglycerides 264 <150 mg/dL Desirable Triglyceride: [...] in patients with liver disease. Hemoglobin A1c Reviewed date:06/06/2025 01:16:30 PM Interpretation: Performing Lab:[address] [address] Notes/Report: Hemoglobin A1c % 8.2 <6.0 % [...] average glucose, using the formula of the J3Y-Uikowem Average Glucose study (ADAG), Diabetes Care, Vol.31,#8, [...] Referred Provider Specialty Ophthalmolog y General Notes DShaina 08/17/2024 03:24:31 PM >Referral faxed with progress [...] Problem Status W/U Status Risk Notes Problem 73186281 Postmenopausal (Z78.0) Active confirmed She will have a bone density test periodically. Problem [id number] Obesity (BMI 30.0-34.9) (E66.9) Active confirmed She has lost 3 pounds since January. She continues on the medication at the same dose. Problem 617417990 Mixed hyperlipidemia (E78.2) Active confirmed Her lipids are currently stable and no change in her medication was made today. Problem 71319346 Essential hypertension (I10) Active confirmed Her blood pressure remains slightly elevated. She is losing weight. If this does not reduce medication will be prescribed on her next visit. Problem [id number] Carpal tunnel syndrome of right wrist (G56.01) Active confirmed The symptoms are mild and she does not require surgery at this time. This problem and symptom. Will be followed carefully. Problem 439186423 History of depression (Z86.59) Active confirmed She is not depressed today and seems happy and healthy. If this returns. She will come to the office at once. Problem 820376279 History of rhabdomyolysis (Z87.39) Active confirmed She will be observed during hot weather for repeat episodes of this problem. Problem 074384454 Sensorineural hearing loss (SNHL) of both ears (H90.3) Active confirmed Her hearing loss has been stable. Communication was best if she set directly in front of me and I spoke up. I have offered to refer her to audiology, but she has declined. Problem 362158334 Allergy to lisinopril (Z88.8) Active confirmed She has a history of allergies to a sulfa-containi ng medication as well. Problem 89333251 Chronic cough (R05.3) Active confirmed She reports a cough has been present during the day for 4 months. Chest x-ray of been ordered. She does not appear to have an infectious process. This will be further investigated. She does not think it is allergic in nature as it began before pollen season. Problem 06888653 Type 2 diabetes mellitus with hyperglycemia, without [...] Provider Diagnosis Vasiliy Hays III, MD [address] [place] [address] [place] [address] 08/10/2024 Vasiliy Hays Immunization not car ried out because of patient refusal Z28.21 ; Type 2 diabetes mellitus with hyperglycemia, without long-term current use of insulin E11.65 ; Obesity (BMI 30.0-34.9) E66.9 ; Mixed hyperlipidemia E78.2 ; Essential hypertension I10 ; History of depression Z86.59 and Sensorineural hearing loss (SNHL) of both ears H90.3 Vasiliy Hays III, MD [address] [place] [address] [place] [address] 02/09/2025 Vasiliy Hays Essential hypertensi on I10 ; Obesity (BMI 30.0-34.9) E66.9 ; History of depression Z86.59 ; Mixed hyperlipidemia E78.2 ; Chronic cough R05.3 ; Sensorineural hearing loss (SNHL) of both ears H90.3 ; Carpal tunnel syndrome of right wrist G56.01 and Type 2 diabetes mellitus with hyperglycemia, without long-term current use of insulin E11.65 Vasiliy Hays III, MD [address] [place] [address] [place] [address] 03/26/2025 Vasiliy Hays Obesity (BMI 30.0-34 .9) E66.9 ; Essential hypertension I10 ; History of depression Z86.59 ; Mixed hyperlipidemia E78.2 ; Sensorineural hearing loss (SNHL) of both ears H90.3 and Type 2 diabetes mellitus with hyperglycemia, without long-term current use of insulin E11.65 Vasiily Hays III, MD [address] [place] [address] [place] [address] 04/30/2025 Vasiliy Hays Essential hypertensi on I10 ; Type 2 diabetes mellitus with hyperglycemia, without long-term current use of insulin E11.65 ; Obesity (BMI 30.0-34.9) E66.9 and Mixed hyperlipidemia E78.2 Vasiliy Hays III, MD [address] [place] [address] [place] [address] 01/27/2025 Vasiliy Hays III, MD [address] [place] [address] [place] [address] 02/02/2025 Vasiliy Hays III, MD [address] [place] [address] [address] [place], [place] [phone] 02/02/2025 Vasiliy Hays Assessments Encounter Date Diagnosis [...] Order Date PROFILE, FASTING (COMPREHENSIVE METABOLI C) 01/09/2023 PROFILE, FASTING (COMPREHENSIVE METABOLI C) 04/30/2025 PROFILE, FASTING (COMPREHENSIVE METABOLI C) 08/10/2024 PROFILE, FASTING (COMPREHENSIVE METABOLI C) 08/05/2023 HEMOGLOBIN A1C (GLYCOHEMOGLOBIN) 023 LIPID PANEL 08/05/2023 LIPID PANEL 01/09/2023 CBC w DIFF 08/05/2023 CBC w DIFF 04/30/2025 CBC w DIFF 01/09/2023 URINALYSIS (UA) 08/05/2023 URINE CULTURE 08/05/2023 CBC WITH AUTO DIFF 08/10/2024 Lipid Panel 04/30/2025 Hemoglobin A1c 04/30/2025 Next Appt Details Provider Name:Vasiliy Flores Lis , 06/10/2025 09:00:00 AM, [address] [place] [address] [address], [place], [address], Provider Name:Vasiliy Flores Lis , 08/11/2025 09:30:00 AM, [address] [place] [address] [address], [place], [address], Insurance Providers Payer Name Payer Address Payer Phone Subscriber Number Group Number Insured Name Patient Relationship to Insured Coverage Start Date Coverage End Date [facility] [place] [phone] [id number] [place] Self - patient is the insured 1 Medical (General) History Medical History History ICD Code Hyperlipidemia, unspecified hyperlipidem ia type E78.5 obesity history of depression essential hypertension nontraumatic rhabdomyolysis April 2015 [facility] last menstrual period July 2017 frequent [...]
== END 2025-06-09 07:31 | disposition home or self-care (01) ==
LOC: HO.MAMMO 07:30
PROVIDERS: PCP Internal Medicine Medical Oncology; Visit Provider Internal Medicine Medical Oncology
DX: Z12.31 Encounter for screening mammogram for malignant neoplasm of breast (principal)
CPT/HCPCS: 77063; 77067

== ENCOUNTER → 2025-06-09 07:30 | Outpatient (BNV) | payer MEDICARE, SELFPAY | PROVIDERS: PCP Internal Medicine Medical Oncology; Visit Provider Radiology Body Imaging | DX: Z12.31 Encounter for screening mammogram for malignant neoplasm of breast (principal) | CPT/HCPCS: 77063; 77067 ==